=== PATIENT | male | born 1970 | race Caucasian/White ===

== ENCOUNTER 2016-07-11 15:23 | Emergency (ER) | payer OTHER ==
[2016-07-11 15:38] VITALS: BP 119/101
--- NOTE | 2016-07-11 16:12 | UC ---
Back Pain HPI - HPI Summary HPI Summary: WORSENING LOW BACK PAIN SINCE ABOUT AN HOUR AGO. 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 HAS CHRONIC BACK PAIN AND WAS ADVISED TO HAVE SURGERY IN THE PAST BUT WAS UNABLE TO GET IT DONE UNTIL HE QUIT SMOKING WHICH HE HAS NOT DONE. NO NUMBNESS OR SADDLE ANESTHESIA. - History of Current Complaint Chief Complaint: UCBackPain Stated Complaint: BACK PAIN Time Seen by Provider: 07/11/16 16:04 Hx Obtained From: Patient Onset/Duration: Sudden Onset, Lasting Hours, Still Present Timing: Constant Severity Initially: Moderate Severity Currently: Moderate Pain Intensity: 8 Pain Scale Used: 0-10 Numeric Back Pain: Is Discrete @ - LEFT LOW BACK Character: Dull, Throbbing Aggravating: Movement, Bending Alleviating: Rest Associated Signs And Symptoms: Positive: Tingling. Negative: Swelling, Redness , Bruising, Fever, Bladder Incontinence, Bowel Incontinence - Allergies/Home Medications Allergies/Adverse Reactions: Allergies Allergy/AdvReac Type Severity Reaction Status Date / Time No Known Allergies Allergy Verified 07/14/15 15:06 PMH/Surg Hx/FS Hx/Imm Hx Endocrine History Of: Denies: Diabetes, Thyroid Disease Cardiovascular History Of: Denies: Cardiac Disorders, Hypertension Respiratory History Of: Reports: COPD - Emphysema Denies: Asthma GI/ History Of: Denies: Ulcer Psychological History Of: Reports: Depression - Surgical History Surgical History: None - Family History Known Family History: Positive: Hypertension - Social History Alcohol Use: None Substance Use Type: Marijuana Substance Use Comment - Amount & Last Used: occasionally Smoking Status (MU): Heavy Every Day Tobacco Smoker Amount Used/How Often: 1 ppd Length of Time of Smoking/Using Tobacco: 35 years Have You Smoked in the Last Year: Yes Household Exposure Type: Cigarettes - Immunization History Most Recent Influenza Vaccination: 2014 Most Recent Tetanus Shot: UTD Review of Systems Constitutional: Negative Skin: Negative Respiratory: Negative Cardiovascular: Negative Gastrointestinal: Negative Musculoskeletal: Arthralgia, Myalgia All Other Systems Reviewed And Are Negative: Yes Physical Exam Triage Information Reviewed: Yes Appearance: Well-Appearing, No Pain Distress, Well-Nourished Vital Signs: Initial Vital Signs Temp 99.5 F 07/11/16 15:30 Pulse 100 07/11/16 15:30 Resp 16 07/11/16 15:30 BP 119/101 07/11/16 15:30 Pulse Ox 97 07/11/16 15:30 Vital Signs Reviewed: Yes Eyes: Positive: Conjunctiva Clear ENT: Positive: Hearing grossly normal Neck: Positive: Supple Respiratory: Positive: No respiratory distress, No accessory muscle use Cardiovascular: Positive: Pulses Normal Abdomen Description: Positive: Soft Musculoskeletal: Positive: ROM Intact, No Edema, Other: - TTP LEFT LOWER BACK PARASPINOUS MUSCLES. MUSCLES ARE TIGHT. Neurological: Positive: Alert Psychological: Positive: Age Appropriate Behavior Skin: Negative: rashes Back Pain Course/Dx - Differential Dx/Diagnosis Provider Diagnoses: ACUTE LOW BACK STRAIN Discharge - Discharge Plan Condition: Stable Disposition: HOME Prescriptions: Cyclobenzaprine TAB* [Flexeril TAB*] 10 mg PO TID #30 tab Hydrocodone-Acetaminophen [Lorcet 5-325 mg] 1 tab PO QID PRN #12 tab MDD 4 PRN Reason: Pain Naproxen [Naproxen EC] 500 mg PO BID PRN #30 tab PRN Reason: Pain Patient Education Materials: Low Back Strain (ED) Referrals: Hira Gonzalez MD [Medical Doctor] - 1 Week Claudio Arango MD [Primary Care Provider] - 4 Days Additional Instructions: BE SURE TO GO THROUGH SLOW RANGE OF MOTION AND STRETCHING EXERCISES DAILY YOU ARE ABLE TO PREVENT STIFFENING UP AND MAKING THE DISCOMFORT WORSE. SEEK FOLLOW-UP IF YOU ARE NOT IMPROVING. YOU MAY WANT TO RE-ESTABLISH WITH NEUROSURGERY TO DISCUSS TREATMENT OPTIONS. [facility] [address] [place] [id number] YOUR BP IS SLIGHTLY ELEVATED. THIS MAY BE DUE TO YOUR CURRENT DISCOMFORT. FOLLOW -UP WITH YOUR PCP FOR THIS.
== END 2016-07-11 16:40 | disposition home or self-care (01) ==
LOC: UCEAST 15:23
DX: S39.012A Strain of muscle, fascia and tendon of lower back, initial encounter (principal); X50.0XXA Overexertion from strenuous movement or load, initial encounter; Y93.89 Activity, other specified; Y92.9 Unspecified place or not applicable; J43.9 Emphysema, unspecified; F17.210 Nicotine dependence, cigarettes, uncomplicated
CPT/HCPCS: 99212; G0463

== ENCOUNTER 2016-12-30 13:52 | Inpatient (IN) | payer OTHER ==
[2016-12-30] MEDS ORDERED: NS 0.9% 1000 ML* 1,000 ML IV ONE ×2 (13:59→20:15)
[2016-12-30] MEDS ORDERED: LORazepam INJ* 2 MG/ML 1 ML VIAL ONE ×2 (13:59→14:11)
[2016-12-30] MEDS ORDERED: LORazepam INJ* 2 MG/ML 1 ML VIAL IV PUSH ONE ×2 (14:00→17:10)
[2016-12-30] MEDS ORDERED: Midazolam* 1 MG/ML 2 ML VIAL (2 MG) ONE (14:11)
[2016-12-30] MEDS ORDERED: Etomidate* 2 MG/ML 20 ML VIAL (40 MG) ONE (14:31)
[2016-12-30] MEDS ORDERED: Succinylcholine* 20 MG/ML 10 ML VIAL ONE (14:31)
[2016-12-30] MEDS ORDERED: Etomidate* 2 MG/ML 10 ML VIAL ONE (14:31)
--- NOTE | 2016-12-30 14:45 | RAD ---
Indication: Altered mental status. Possible drug overdose. Shaking and vomiting. Comparison: No relevant prior exams available on the [facility] PACS for comparison. Technique: Noncontrast CT vertex of skull through foramen magnum. Multiple data acquisitions due to significant motion artifact. Report: The sulci, ventricles, and basal cisterns are normal for age. Bowen matter white matter differentiation is preserved without evidence for edema. No intra or extra axial hemorrhage, mass, or fluid collection detected. Unremarkable visualized orbital contents. Unremarkable calvarium and skull base. Unremarkable scalp. Near complete opacification of the LEFT maxillary sinus and multiple gas bubbles. Gross complete opacification of the LEFT sphenoid sinus and partial opacification of the LEFT ethmoid sinus. Normal variant hypoplastic frontal sinuses. Clear mastoid air spaces. IMPRESSION: 1. No CT abnormality of the brain evident. 2. LEFT paranasal sinus disease suspicious for acute sinusitis.
--- NOTE | 2016-12-30 14:48 | RAD ---
Indication: Altered mental status. Emphysema. Shaking and vomiting. Comparison: March 02, 2011 CT. October 27, 2008 chest radiograph. Technique: Portable AP chest 1429 hours Report: Elevated lung volumes and both diffuse mild prominence of the interstitial markings and patchy rarefaction of the mid to upper lung zone interstitial markings. No focal pulmonary lesion, compelling alveolar consolidation, pleural effusion, pneumothorax. The heart, pulmonary vasculature, and mediastinal contours are unremarkable. IMPRESSION: Stigmata of obstructive lung disease. No acute pulmonary or cardiac process evident.
[2016-12-30] MEDS: Midazolam PREMIX BAG 1 MG/ML* 100 MG/100 ML BAG IV ONE ×2 (14:50→20:27)
[2016-12-30] MEDS ORDERED: Midazolam* 1 MG/ML 5 ML VIAL (5 MG) ONE (14:59)
--- NOTE | 2016-12-30 15:26 | RAD ---
Indication: Post intubation. Confirm ET tube placement. Comparison: December 30, 2016 1429 hours Technique: Supine AP 1500 hours Report: Tip of endotracheal tube 9.8 cm above the Meme and should be advanced approximate 4 cm. Elevated lung volumes and both diffuse mild prominence of the interstitial markings and patchy rarefaction of the mid to upper lung zone interstitial markings. The heart, pulmonary vasculature, and mediastinal contours are unremarkable. IMPRESSION: Endotracheal tube should be advanced approximate 4 cm.
--- NOTE | 2016-12-30 15:37 | PN ---
Progress Note - Progress Note Date of Service: 12/30/16 Note: Critical Care Admission Note (History & Physical) 46 yo male broght to ER after several episodes of vomitting that led to loss of consciousness. Patient brought to ER by EMS....was agitated in ER with left sided twitching suspicious for seizures. Patient was given a couple of doses of Ativan and Versed as well and was intubated to secure his airway. CT head was performed which was nonrevealing. is in ER...reports he was apparently doing some house cleaning earlier today. She relates that once in past, about 8 years ago he may have had something like this occur but nothing came of it. He has not had any recent head tauma. She denies any recent history of headaches. She relates they do use marijuana and says they have been buying from same source. She denies use of K2 or Spice. She says he does not drink alcohol. He does occassionally take her Oxycodone and Cyclobenzaprine in relation to low back pains. She denies any other drugs being available in the house. 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, , has 5 children, smokes E- cigarettes...formerly smoked tobacco Fam Hx...unable to obtain ROS unable to obtain but according to there are no other medical issues on a general survey of multisystem diseases SBP 97-101 HR 101 reg FiO2 50% TV 500 PEEP 5 SpO2 99 Skin no diaphoresis, no cyanosis Sclerae anicteric, pupils equal Oral ETT in place Oral mucosa pink Lungs with bilateral BS, no wheezes Cor RRR S1 and S2 normal, no murmur, no rub Abd flat, soft, nontender Ext no edema Bilateral upper extrem PIVs labs not yet available CXR hyper-expanded lungs, ETT high, no infiltrate, no PVC EKG SR IMP: Acute Respiratory Failure...intubated to secure airway Encephalopathy with agitation and apparent seizure activity Marijuana use Emphysema Low back pain PLAN: Full MV support for now Will request Neurology Consult Will initiate Keppra for now IV hydration Full admitting chemical analysis, CBC Tox Screen Keep HOB raised DVT Prophyl Pepcid Suctioning PRN Albuterol Neb Q4 hr PRN
[2016-12-30 15:42] LABS: Hematocrit 44 % (42-52); Hemoglobin 14.7 g/dl (14.0-18.0); Mean Corpuscular HGB Conc 34 g/dl (31-36); Mean Corpuscular Hemoglobin 31 pg (27-31); Mean Corpuscular Volume 93 fL (80-94); Mean Platelet Volume 8 um3 (7.4-10.4); Red Blood Count 4.72 10^6/ul (4.0-5.4); Red Cell Distribution Width 14 % (10.5-15); White Blood Count 8.1 10^3/ul (3.5-10.8)
[2016-12-30] MEDS: D5LR 1000 ML BAG* 1,000 ML IV SCH ×2 (15:44→22:50)
[2016-12-30 15:56] LABS: ALT 15 U/L (7-52); AST 13 U/L (13-39); Albumin 3.8 g/dL (3.2-5.2); Alkaline Phosphatase 59 U/L (34-104); Anion Gap 10 mmol/L (2-11); BUN/Creatinine Ratio 10.3 (8-20); Blood Urea Nitrogen 10 mg/dL (6-24); CO2 Carbon Dioxide 23 mmol/L (22-32); Calcium 8.8 mg/dL (8.6-10.3); Chloride 104 mmol/L (101-111); Creatine Kinase 52 U/L (10-223); EGFR African American 106.2 (>60); EGFR Non-African American 82.6 (>60); Glucose 153 mg/dL (70-100); Magnesium 1.7 mg/dL (1.9-2.7); Potassium 3.6 mmol/L (3.5-5.0); Sodium 137 mmol/L (133-145); Total Protein 6.8 g/dL (6.4-8.9); Urine Bilirubin Negative (Negative); Urine Glucose Negative (Negative); Urine Nitrite Negative (Negative)
[2016-12-30 15:59] LABS: Alcohol < 10 mg/dL (<10); Salicylate < 2.50 mg/dL (<30)
[2016-12-30 16:00] LABS: Benzodiazepine Urine Screen Presumptive Positive (None Detect)
[2016-12-30 16:09] LABS: TSH (Thyroid Stimulating Horm) 3.83 mcIU/mL (0.34-5.60)
[2016-12-30] MEDS: Chlorhexidine MOUTHWASH 0.12%* 15 ML UDC TOPICAL SCH ×3 (16:10→22:54)
[2016-12-30] MEDS ORDERED: Propofol* 100 ML ONE (16:14)
[2016-12-30 16:18] LABS: Acetaminophen 371 mcg/mL
[2016-12-30] MEDS ORDERED: Midazolam* 1 MG/ML 2 ML VIAL (2 MG) IV ONE (16:41)
[2016-12-30] MEDS ORDERED: Succinylcholine* 20 MG/ML 10 ML VIAL IV ONE (16:42)
[2016-12-30] MEDS ORDERED: Etomidate* 2 MG/ML 10 ML VIAL IV ONE (16:42)
[2016-12-30 16:46] LABS: Phosphorus 2.2 mg/dL (2.5-5.0)
[2016-12-30] MEDS ORDERED: ACETYLCYSTEINE IVPB ONE ×4 (17:00→21:15)
[2016-12-30] MEDS ORDERED: D5W IVPB ONE ×4 (17:00→21:15)
[2016-12-30] MEDS ORDERED: Potassium Phosphate IV* 15 MMOLE in NS 0.9% 250 ML* 250 ML IVPB ONE (17:04)
[2016-12-30] MEDS ORDERED: Midazolam* 1 MG/ML 5 ML VIAL (5 MG) IV ONE (17:09)
[2016-12-30 17:19] LABS: FIO2 30; Resp Rate 12; Ventilator Volume 500
[2016-12-30 17:22] LABS: PCO2 Arterial 42 mmHg (35-45)
[2016-12-30] MEDS: Enoxaparin(*) 40 MG/0.4 ML SYR SUBCUT SCH (17:34)
--- NOTE | 2016-12-30 17:34 | RAD ---
Indication: Chest endotracheal tube and orogastric tube positions. Comparison: 1429 hours exam of the same date. Technique: Supine AP 1655 hours Report: Endotracheal tube tip 8.5 cm above the Meme. Nasogastric tube passes below the diaphragm to at least the body of the stomach with the tip outside the [id number] caudally. Stigmata of advanced chronic obstructive pulmonary disease and emphysema with suggestion of potential inflammatory infiltrate at the RIGHT lung base not appreciated on the previous exam. Negative for cardiomegaly. Unremarkable central pulmonary vasculature and mediastinal contours. IMPRESSION: 1. The endotracheal tube could be advanced approximate 3 cm. 2. Potential inflammatory infiltrate at the RIGHT lung base.
[2016-12-30] MEDS: Rocuronium* 10 MG/ML VIAL IV ONE ×2 (17:50→18:57)
[2016-12-30] MEDS ORDERED: Midazolam IV for DRIP 100 MG in NS 0.9% IV SCH (18:00)
[2016-12-30] MEDS ORDERED: Propofol* 500 MG/50 ML BTL IV SCH (18:00)
--- NOTE | 2016-12-30 19:11 | RAD ---
INDICATION: ICU patient. Fall. Potential neck trauma. COMPARISON: February 21, 2012 radiographs. TECHNIQUE: Multidetector CT images foramen magnum to lung apices without contrast. Multiplanar reformation. REPORT: Endotracheal and nasogastric tubes noted. Limited images through the lung apices are remarkable for advanced emphysema with subpleural blebs and bulla. No apical pneumothorax evident. Normal vertebral alignment accounting for exam positioning without spondylolisthesis or subluxation at any level. Negative for cervical vertebral body or posterior element fracture. Negative for paravertebral hematoma. Multilevel degenerative spondylosis. At C4-C5 there is a mild disc space narrowing and dorsal disc osteophyte complex without significant resulting central canal stenosis. Uncinate process spurring and facet joint osteoarthritis results in moderate RIGHT foraminal stenosis. IMPRESSION: Negative for cervical spine fracture or traumatic malalignment.
[2016-12-30] MEDS: Propofol* 1000 MG (10 MG/ML 100 ml) @ Per Protocol (in ICU Pyxis) IV SCH (19:36)
--- NOTE | 2016-12-30 21:58 | CONS ---
CONSULTATION REPORT: DATE OF CONSULT: 12/30/16 HISTORY OF PRESENT ILLNESS: Hira Holloway is a 46-year-old gentleman who follows with Dr. Arango for low back and neck pain and COPD, who is admitted now with a change in mental status. Mr. Holloway was last seen normal by his last night. When she woke up this morning around 12:31 per history, he was "out of it." She described him lying on the bed with his mouth open. She had gotten out of bed, went back to bed and it was soon after that he had fallen and was vomiting. She had questioned whether he may have done some cleaning that morning. There is a history of marijuana use, but she is unclear if he had taken marijuana that day. She indicates that they had used some of the marijuana before without difficulty. She does not know of any other drug use other than sometimes he will take her benzodiazepines and oxycodone at times. His tox screen was positive with acetaminophen 371 and presumed positive benzodiazepine and cannabinoids. Dr. Strickland in the emergency room indicated that he was agitated and confused. There was no improvement with Narcan. He became almost obtunded and then after that was reported again to be agitated per description. He was taken to the CT and upon returning from the CT scan, had 5 to 10 seconds of twitching on the left hand side. He received a total of 6 mg of Ativan and 9 mg of Versed prior to getting a Versed drip. He was brought up to the ICU and the ICU attending asked me to see him. PAST MEDICAL HISTORY: As gleaned from at bedside and from outpatient chart includes low back pain, neck pain, COPD, brachial neuritis, hyponatremia, hyperlipidemia, GI reflux, depression, insomnia, and sleep apnea. He was last seen in October and received amoxicillin-clavulanic acid for an upper respiratory tract infection. MEDICATIONS: His outpatient medications from the outpatient chart include: 1. Calcium and vitamin D 600/400 international units p.o. b.i.d. 2. Dulera 200/5 two b.i.d. 3. Ventolin 2 puffs q.i.d. 4. Hydrocodone/APAP 5/325 q.12 hours. 5. Benzodiazepine 10 mg p.o. q.h.s. 6. Ibuprofen 600 mg p.o. t.i.d. 7. Multivitamin and fluconazole 50 mcg 2 puffs a day. His recalls him taking cyclobenzaprine, ibuprofen, and multivitamin. ALLERGIES: He has no known drug allergies. SOCIAL HISTORY: He does smoke about 20 cigarettes a day. Does not drink alcohol. He does smoke marijuana. REVIEW OF SYSTEMS: His indicates that recently he has lost a lot of weight , other than that, she indicates he has been healthy. There has been no other new problems. I reviewed what information I had on his past medical history and she indicated that was the best to her knowledge. The patient could not participate further in review of systems. PHYSICAL EXAM: In the ICU, most recent vitals include a heart rate of 110, respiratory rate 30, saturation 98%, blood pressure 151/98, and his temperature was 97.5 degrees Fahrenheit. He had a regular cardiac rhythm. His lungs were clear to auscultation. He was tachycardic. He had positive bowel sounds. His abdomen was soft, nontender. At first when I walked in the room before propofol was started, he was moving his arms in a somewhat random, purposeful- type manner, reaching out, although quickly his exam changed and he had what could be described as decorticate posturing with flexing of his arms when he was stimulated and extension of his legs. His pupils were 3 mm with response to light. His fundi was flat on the right with good vasculature, harder to observe on the left. He did not follow commands. He blinked to treat. His facial expression was symmetric. His tone was increased. He had decorticate posturing as noted above. He had clonus at his ankles 7 to 9 beats. He could not participate further in motor, coordination, or gait exam or sensory exam. His reflexes were 1+ in the upper extremities. Hard to obtain any in the lower extremities as he was tonic with the clonus at the ankles and his toes were equivocal. DIAGNOSTIC STUDIES/LAB DATA: Includes CT of the brain which was reviewed directly which did not show any clear cause for his decline. There was evidence to suggest some left paranasal sinus disease. Please see report for details. His chest x-ray was read as showing obstructive lung disease stigmata. His complete metabolic panel did show an elevated glucose at 153. His lactate was elevated at 3.2, magnesium was low at 1.7. TSH was 3.83. His urinalysis showed trace ketones and there was positive urine ascorbic acid. His tox screen showed 371 acetaminophen, presumed positive benzodiazepines, and presumed positive cannabinoids. Serum alcohol was less than 10, salicylates less than 2.5, and urine opiate screen was negative. IMPRESSION: Hira Holloway is a 46-year-old gentleman with a history of low back pain and neck pain, brought in with agitation, confusion, and vomiting. He was last seen normal by his last night. There is variable history in obtaining what happened. There appeared to be history of trauma with a fall. His CT was negative. Of concern is exam with decorticate posturing and I spoke with the ICU attending. He was placed in a collar and will be having a CT of the cervical spine. He required extensive sedation to avoid self-harm and is now intubated. His exam is limited. I have asked for an roofing technician to come in to make sure there is no evidence of status. Based on his initial exam, this is less likely but at this point, it is minimal exam and just posturing and therefore it is on the differential diagnosis. The clinical picture is most consistent with the gesturing of substance or polysubstance. No fevers detected today. There is no elevated white count. He does have an elevated lactate and ICU attending is taking care and we will further evaluate this finding along with repletion of magnesium. The posturing does suggest central nervous system injury. In the future, he will need further central nervous system imaging per clinical course. TIME SPENT: Over an hour thus far has been spent in patient care and further time will be spent in review of EEG tonight as well as CT of the cervical spine. [id number]/[facility] #: [id number] [facility]
[2016-12-30] MEDS: Famotidine IV* 10 MG/ML 2 ML (20 mg) IV SCH (22:56)
[2016-12-31] MEDS ORDERED: ACETYLCYSTEINE IVPB ONE ×2 (01:45→06:00)
[2016-12-31] MEDS ORDERED: D5W IVPB ONE ×2 (01:45→06:00)
[2016-12-31] MEDS: Propofol* 1000 MG (10 MG/ML 100 ml) @ Per Protocol (in ICU Pyxis) IV SCH ×2 (01:56→17:06)
--- NOTE | 2016-12-31 03:55 | EEG ---
ELECTROENCEPHALOGRAPHY: DATE OF STUDY: 12/30/2016. CLINICAL PROBLEM: Mr. Holloway is a 46-year-old gentleman with a history of chronic neck and back pain and COPD, who had a change in mental status of unclear onset. He was last seen normal by his last night. This morning to afternoon around noon-shelton time, she noticed he was out of it on the bed. Later he became agitated, confused, fell, and was vomiting and he was noted to be confused and combative in the hospital, requiring a significant amount of sedation with Ativan and Versed and eventually Versed drip and propofol. Initially, during the recording, the patient was on both Versed and propofol and partway through the recording, the propofol was held. REPORT: This was a 16-channel EEG performed at the bedside. In the beginning of the record, the background activity was low voltage and fast. Soon after the record began, there was burst of higher amplitude more sharply contoured waves that were slower, anterior more than posterior. Intermittently alpha activity was noted at 13 Hz in bursts. As the record continued, there was no significant asymmetry of the background rhythm. There was no evidence of ongoing seizure activity. As the record continued, the burst of activity became more frequent in the setting of propofol being held, there was evidence of frequent bursts of generalized activity that was higher amplitude, more sharply contoured particularly in the frontal leads. CLINICAL IMPRESSION: This is an abnormal EEG. Findings are consistent with burst suppression. There was no evidence of ongoing epileptiform activity. [id number]/[facility] #: [id number] [facility]
[2016-12-31] MEDS: Chlorhexidine MOUTHWASH 0.12%* 15 ML UDC TOPICAL SCH ×5 (04:18→20:53)
[2016-12-31] MEDS: D5LR 1000 ML BAG* 1,000 ML IV SCH ×3 (05:10→21:37)
[2016-12-31 05:17] LABS: Hematocrit 39 % (42-52); Hemoglobin 12.9 g/dl (14.0-18.0); Mean Corpuscular HGB Conc 34 g/dl (31-36); Mean Corpuscular Hemoglobin 31 pg (27-31); Mean Corpuscular Volume 93 fL (80-94); Mean Platelet Volume 8 um3 (7.4-10.4); Red Blood Count 4.14 10^6/ul (4.0-5.4); Red Cell Distribution Width 14 % (10.5-15); White Blood Count 7.6 10^3/ul (3.5-10.8)
[2016-12-31 05:27] LABS: Albumin 2.8 g/dL (3.2-5.2); BUN/Creatinine Ratio 9.5 (8-20); Calcium 7.8 mg/dL (8.6-10.3); EGFR African American 145.2 (>60); EGFR Non-African American 112.9 (>60); Magnesium 2.2 mg/dL (1.9-2.7); Phosphorus 3.1 mg/dL (2.5-5.0); Potassium 3.2 mmol/L (3.5-5.0); Total Bilirubin 1.5 mg/dL (0.2-1.0); Total Protein 4.8 g/dL (6.4-8.9)
--- NOTE | 2016-12-31 09:07 | RAD ---
Indication: Respiratory failure. Single frontal view of the chest performed at 0630 hours was reviewed. Comparison is made with previous exam dated December 30, 2016. No mediastinal shift is noted. Heart is of normal size and configuration. Lung gonzalez appear clear. Endotracheal tube is at the level of the aortic arch IMPRESSION: HYPERINFLATED LUNG GONZALEZ. ENDOTRACHEAL TUBE AT THE AORTIC ARCH.
[2016-12-31] MEDS: KCL 10 MEQ/50 ML IVPREMIX* 10 MEQ/50 ML BAG IV SCH ×6 (09:32→23:58)
[2016-12-31] MEDS: Famotidine IV* 10 MG/ML 2 ML (20 mg) IV SCH ×2 (09:32→20:53)
[2016-12-31] MEDS ORDERED: hydrALAZINE IV* 20 MG/ML VIAL IV SLOW PU PRN (11:35)
[2016-12-31] MEDS: Enoxaparin(*) 40 MG/0.4 ML SYR SUBCUT SCH (17:05)
--- NOTE | 2016-12-31 17:28 | ED ---
Tiesha Davis Edward, scribed for Hector Strickland MD on 12/30/16 at 1404 . Complex/Multi-Sys Presentation - HPI Summary HPI Summary: 46 y/o male BIBA s/p episode of sudden onset, intermittent vomiting 5 times at home around 45 minutes to an hour [employer]. Pt was found fallen faced down on the floor. Per patients , the patient was diaphoretic and shaking during the episode. He also fell to the floor and hit his head. Pt uses marijuana and cigarettes. Pt arrives to the ED agitated and uncooperative. - History Of Current Complaint Hx Obtained From: Family/[employer] - , EMS Onset/Duration: Sudden Onset Timing: Intermittent, Lasting: Associated Signs And Symptoms: Positive: Nausea, Vomiting, Diaphoresis, Other - Shaking - Allergies/Home Medications Allergies/Adverse Reactions: Allergies Allergy/AdvReac Type Severity Reaction Status Date / Time No Known Allergies Allergy Verified 08/07/16 09:29 PMH/Surg Hx/FS Hx/Imm Hx Previously Healthy: No Endocrine/Hematology History: Denies: Hx Diabetes, Hx Thyroid Disease Cardiovascular History: Denies: Hx Hypertension, Hx Pacemaker/ICD Respiratory History: Reports: Hx Chronic Obstructive Pulmonary Disease (COPD) - Emphysema Denies: Hx Asthma GI History: Denies: Hx Ulcer Musculoskeletal History: Denies: Hx Scoliosis Neurological History: Reports: Other Neuro Impairments/Disorders - LBP RADIATING DOWN L LEG Denies: Hx Headaches Psychiatric History: Reports: Hx Depression Denies: Hx Panic Disorder Infectious Disease History: Denies: Hx Clostridium Difficile, Hx Hepatitis, Hx Human Immunodeficiency Virus (HIV), Hx of Known/Suspected MRSA, Hx Shingles, Hx Tuberculosis, Hx Known/ Suspected VRE, Hx Known/Suspected VRSA, History Other Infectious Disease, Traveled Outside the [place] in Last 30 Days - Family History Known Family History: Positive: Hypertension - Social History Alcohol Use: None Hx Substance Use: Yes Substance Use Type: Reports: Marijuana Substance Use Comment - Amount & Last Used: occasionally Hx Tobacco Use: Yes Smoking Status (MU): Heavy Every Day Tobacco Smoker Amount Used/How Often: 1 ppd Length of Time of Smoking/Using Tobacco: 35 years Have You Smoked in the Last Year: Yes Review of Systems Constitutional: Negative Eyes: Negative ENT: Negative Cardiovascular: Negative Respiratory: Negative Positive: Vomiting, Nausea Genitourinary: Negative Musculoskeletal: Negative Skin: Negative Neurological: Other - Fell and hit his head, shaking, convulsions Psychological: Normal All Other Systems Reviewed And Are Negative: Yes Physical Exam - Summary Physical Exam Summary: VITAL SIGNS: Reviewed. GENERAL: ~Patient is agitated and uncooperative. ~Patient is not in any acute respiratory distress. HEAD AND FACE: No signs of trauma. ~No ecchymosis, hematomas or skull depressions. No sinus tenderness. EYES: PERRLA, EOMI x 2, No injected conjunctiva, no nystagmus. EARS: Hearing grossly intact. Ear canals and tympanic membranes are within normal limits. MOUTH: Dry mucosa with lots of phlegm. NECK: Supple, trachea is midline, no adenopathy, no JVD, no carotid bruit, no c- spine tenderness, neck with full ROM. CHEST: Symmetric, no tenderness at palpation LUNGS: Clear to auscultation bilaterally. No wheezing or crackles. CVS: Regular rate and rhythm, S1 and S2 present, no murmurs or gallops appreciated. ABDOMEN: Soft and flat. Positive bowel sounds. EXTREMITIES: FROM in all major joints, no edema, no cyanosis or clubbing. NEURO: Alert not oriented. No acute neurological deficits. Does not follow commands. SKIN: Dry and warm Triage Information Reviewed: Yes Vital Signs On Initial Exam: Initial Vitals Temp Pulse Resp BP Pulse Ox 96.9 F 98 12 103/77 98 12/30/16 13:59 12/30/16 13:59 12/30/16 13:59 12/30/16 13:59 12/30/16 13:59 Vital Signs Reviewed: Yes Procedures - Intubation Time of Intubation: 14:35 Intubation Method: orotracheal Tube Size (cm): 7.5 Medications: Succinylcholine - Ethomidate Breath Sounds after Intubation: equal Intubation Complications: no complications Post Intubation Xray: Yes Diagnostics - Vital Signs Vital Signs Temp Pulse Resp BP Pulse Ox 12/30/16 15:05 106 22 97/74 99 12/30/16 15:00 106 22 113/81 99 12/30/16 14:55 115 27 98/79 98 12/30/16 14:50 115 23 102/88 100 12/30/16 14:45 104 18 127/101 100 12/30/16 14:40 97 12 117/83 100 12/30/16 14:35 100 21 126/100 98 12/30/16 14:30 99 23 119/77 88 12/30/16 14:25 101 23 113/85 90 12/30/16 14:15 106 27 96 12/30/16 14:10 102 27 96 12/30/16 14:05 104 27 92 12/30/16 14:00 100 27 97 12/30/16 13:59 96.9 F 98 12 103/77 98 - Laboratory Lab Results: Lab Results 12/30/16 12/30/16 12/30/16 Range/Units 15:07 15:07 15:07 WBC 8.1 (3.5-10.8) 10^3/ul RBC 4.72 (4.0-5.4) 10^6/ul Hgb 14.7 (14.0-18.0) g/dl Hct 44 (42-52) % MCV 93 (80-94) fL MCH 31 (27-31) pg MCHC 34 (31-36) g/dl RDW 14 (10.5-15) % Plt Count 248 (150-450) 10^3/ul MPV 8 (7.4-10.4) um3 Neut % (Auto) 73.8 (38-83) % Lymph % (Auto) 19.8 L (25-47) % Desha % (Auto) 5.7 (1-9) % Eos % (Auto) 0.1 (0-6) % Baso % (Auto) 0.6 (0-2) % Absolute Neuts (auto) 6.0 (1.5-7.7) 10^3/ul Absolute Lymphs (auto) 1.6 (1.0-4.8) 10^3/ul Absolute Monos (auto) 0.5 (0-0.8) 10^3/ul Absolute Eos (auto) 0 (0-0.6) 10^3/ul Absolute Basos (auto) 0 (0-0.2) 10^3/ul Absolute Nucleated RBC 0 10^3/ul Nucleated RBC % 0 Sodium 137 (133-145) mmol/L Potassium 3.6 (3.5-5.0) mmol/L Chloride 104 (101-111) mmol/L Carbon Dioxide 23 (22-32) mmol/L Anion Gap 10 (2-11) mmol/L BUN 10 (6-24) mg/dL Creatinine 0.97 (0.67-1.17) mg/dL Est GFR ( Amer) 106.2 (>60) Est GFR (Non-Af Amer) 82.6 (>60) BUN/Creatinine Ratio 10.3 (8-20) Glucose 153 H (70-100) mg/dL Lactic Acid (0.5-2.0) mmol/L Calcium 8.8 (8.6-10.3) mg/dL Phosphorus 2.2 L (2.5-5.0) mg/dL Magnesium 1.7 L (1.9-2.7) mg/dL Total Bilirubin 0.90 (0.2-1.0) mg/dL AST 13 (13-39) U/L ALT 15 (7-52) U/L Alkaline Phosphatase 59 (34-104) U/L Ammonia 32 (16-53) mol/L Total Creatine Kinase 52 (10-223) U/L Troponin I 0.00 (<0.04) ng/mL Total Protein 6.8 (6.4-8.9) g/dL Albumin 3.8 (3.2-5.2) g/dL Globulin 3.0 (2-4) g/dL Albumin/Globulin Ratio 1.3 (1-3) TSH 3.83 (0.34-5.60) mcIU/mL Urine Color Urine Appearance Urine pH (5-9) Ur Specific [place] (1.010-1.030) Urine Protein (Negative) Urine Ketones (Negative) Urine Blood (Negative) Urine Nitrate (Negative) Urine Bilirubin (Negative) Urine Urobilinogen (Negative) Ur Leukocyte Esterase (Negative) Urine Glucose (Negative) Urine Ascorbic Acid (Negative) Salicylates < 2.50 (<30) mg/dL Urine Opiates Screen (None Detect) Acetaminophen 371 H* mcg/mL Ur Barbiturates Screen (None Detect) Ur Phencyclidine Scrn (None Detect) Ur Amphetamines Screen (None Detect) U Benzodiazepines Scrn (None Detect) Urine Cocaine Screen (None Detect) U Cannabinoids Screen (None Detect) Serum Alcohol < 10 (<10) mg/dL 12/30/16 12/30/16 12/30/16 Range/Units 15:07 15:07 15:07 WBC (3.5-10.8) 10^3/ul RBC (4.0-5.4) 10^6/ul Hgb (14.0-18.0) g/dl Hct (42-52) % MCV (80-94) fL MCH (27-31) pg MCHC (31-36) g/dl RDW (10.5-15) % Plt Count (150-450) 10^3/ul MPV (7.4-10.4) um3 Neut % (Auto) (38-83) % Lymph % (Auto) (25-47) % Desha % (Auto) (1-9) % Eos % (Auto) (0-6) % Baso % (Auto) (0-2) % Absolute Neuts (auto) (1.5-7.7) 10^3/ul Absolute Lymphs (auto) (1.0-4.8) 10^3/ul Absolute Monos (auto) (0-0.8) 10^3/ul Absolute Eos (auto) (0-0.6) 10^3/ul Absolute Basos (auto) (0-0.2) 10^3/ul Absolute Nucleated RBC 10^3/ul Nucleated RBC % Sodium (133-145) mmol/L Potassium (3.5-5.0) mmol/L Chloride (101-111) mmol/L Carbon Dioxide (22-32) mmol/L Anion Gap (2-11) mmol/L BUN (6-24) mg/dL Creatinine (0.67-1.17) mg/dL Est GFR ( Amer) (>60) Est GFR (Non-Af Amer) (>60) BUN/Creatinine Ratio (8-20) Glucose (70-100) mg/dL Lactic Acid 3.2 H* (0.5-2.0) mmol/L Calcium (8.6-10.3) mg/dL Phosphorus (2.5-5.0) mg/dL Magnesium (1.9-2.7) mg/dL Total Bilirubin (0.2-1.0) mg/dL AST (13-39) U/L ALT (7-52) U/L Alkaline Phosphatase (34-104) U/L Ammonia (16-53) mol/L Total Creatine Kinase (10-223) U/L Troponin I (<0.04) ng/mL Total Protein (6.4-8.9) g/dL Albumin (3.2-5.2) g/dL Globulin (2-4) g/dL Albumin/Globulin Ratio (1-3) TSH (0.34-5.60) mcIU/mL Urine Color Yellow Urine Appearance Clear Urine pH 6.0 (5-9) Ur Specific [place] 1.028 (1.010-1.030) Urine Protein Negative (Negative) Urine Ketones Trace H (Negative) Urine Blood Negative (Negative) Urine Nitrate Negative (Negative) Urine Bilirubin Negative (Negative) Urine Urobilinogen Negative (Negative) Ur Leukocyte Esterase Negative (Negative) Urine Glucose Negative (Negative) Urine Ascorbic Acid * H (Negative) Salicylates (<30) mg/dL Urine Opiates Screen None detected (None Detect) Acetaminophen mcg/mL Ur Barbiturates Screen None detected (None Detect) Ur Phencyclidine Scrn None detected (None Detect) Ur Amphetamines Screen None detected (None Detect) U Benzodiazepines Scrn Presumptive positive H (None Detect) Urine Cocaine Screen None detected (None Detect) U Cannabinoids Screen Presumptive positive H (None Detect) Serum Alcohol (<10) mg/dL Result Diagrams: 12/31/16 04:56 12/31/16 04:56 Lab Statement: Any lab studies that have been ordered have been reviewed, and results considered in the medical decision making process. - Radiology CXR Xray Interpretation: No Acute Changes - Stigmata of obstructive lung disease. No acute pulmonary or cardiac process evident. Radiology Interpretation Completed By: Radiologist - CT BRAIN CT CT Interpretation: No Acute Changes - 1. No CT abnormality of the brain evident. 2. LEFT paranasal sinus disease suspicious for acute sinusitis. 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 Pt was found fallen faced down on the floor. Per patients , the patient was diaphoretic and shaking during the episode. He also fell to the floor and hit his head. Pt uses marijuana and cigarettes. Pt arrives to the ED agitated and uncooperative. BRAIN CT SHOWS 1. No CT abnormality of the brain evident. 2. LEFT paranasal sinus disease suspicious for acute sinusitis. CXR SHOWS Stigmata of obstructive lung disease. No acute pulmonary or cardiac process evident. Initially the pt is agitated, combative, therefore the pt was given 2 mg Ativan and Versed. Immediately pt was sent to CT to r/o intracranial pathology. We also ordered bloodwork and CXR. By the time the pt returned to the ED the pt was unresponsive. He had this episode of shaking in the L side of his body which lasted for about 7-10 seconds and resolved. At the point the pt was still unresponsive and began foaming in his mouth. At this time I decided to intubate the pt to protect the airways. See procedure note. Test results glucose 153 and lactic acid 3.2. UA (-) UTI. Urine toxicology pending. I discussed with Dr. Rader - the channel man who accepted the pt for admission. The pt was transferred to ICU before urine toxicology, EKG and the post-intubation CXR report. Pt is hemodynamically stable but critical. - Diagnoses Differential Diagnoses/HQI/PQRI: Cardiac Ischemia, Closed Cranial Trauma, CVA, Metabolic Abnormality, Sepsis, Urinary Tract Infection, Other - Overdose, seizure Provider Diagnoses: Altered mental status - Physician Notifications Discussed Care Of Patient With: Reji Rader Time Discussed With Above Provider: 14:46 Instructed by Provider To: Admit As Inpatient - Critical Care Time Critical Care Time: 30-74 min Discharge - Discharge Plan Condition: Stable Disposition: ADMITTED TO [facility] documentation as recorded by the Tiesha paris Edward accurately reflects the service I personally performed and the decisions made by me, Hector Strickland MD.
[2016-12-31 17:37] LABS: Albumin 3.2 g/dL (3.2-5.2); BUN/Creatinine Ratio 6.5 (8-20); Calcium 8.8 mg/dL (8.6-10.3); Direct Bilirubin 0.6 mg/dL (0.03-0.18); EGFR African American 111.5 (>60); EGFR Non-African American 86.7 (>60); Globulin 2.4 g/dL (2-4); Potassium 3.4 mmol/L (3.5-5.0); Total Bilirubin 3.6 mg/dL (0.2-1.0); Total Protein 5.6 g/dL (6.4-8.9)
[2016-12-31] MEDS ORDERED: D5W IVPB SCH (22:00)
[2016-12-31] MEDS ORDERED: ACETYLCYSTEINE IVPB SCH (22:00)
[2017-01-01] MEDS: Chlorhexidine MOUTHWASH 0.12%* 15 ML UDC TOPICAL SCH ×6 (00:03→20:42)
[2017-01-01] MEDS ORDERED: ACETYLCYSTEINE IVPB PRN (00:09)
[2017-01-01] MEDS ORDERED: D5W IVPB PRN (00:09)
[2017-01-01] MEDS: D5W IVPB SCH ×4 (00:29→14:55)
[2017-01-01] MEDS: ACETYLCYSTEINE IVPB SCH ×4 (00:29→14:55)
[2017-01-01] MEDS: Propofol* 1000 MG (10 MG/ML 100 ml) @ Per Protocol (in ICU Pyxis) IV SCH ×4 (01:44→23:16)
[2017-01-01 03:54] LABS: ALT 296 U/L (7-52); AST 156 U/L (13-39)
[2017-01-01 03:55] LABS: Acetaminophen 36 mcg/mL
[2017-01-01 07:09] LABS: Hematocrit 41 % (42-52); Hemoglobin 13.9 g/dl (14.0-18.0); Mean Corpuscular HGB Conc 34 g/dl (31-36); Mean Corpuscular Hemoglobin 31 pg (27-31); Mean Corpuscular Volume 93 fL (80-94); Mean Platelet Volume 8 um3 (7.4-10.4); Red Blood Count 4.43 10^6/ul (4.0-5.4); Red Cell Distribution Width 14 % (10.5-15); White Blood Count 6.1 10^3/ul (3.5-10.8)
[2017-01-01 07:37] LABS: Albumin 2.7 g/dL (3.2-5.2); BUN/Creatinine Ratio 5.6 (8-20); Calcium 8.1 mg/dL (8.6-10.3); EGFR African American 117.3 (>60); EGFR Non-African American 91.2 (>60); Magnesium 1.8 mg/dL (1.9-2.7); Phosphorus 2.4 mg/dL (2.5-5.0); Potassium 3.5 mmol/L (3.5-5.0); Total Bilirubin 2.3 mg/dL (0.2-1.0); Total Protein 4.7 g/dL (6.4-8.9)
[2017-01-01] MEDS: Famotidine IV* 10 MG/ML 2 ML (20 mg) IV SCH ×2 (08:04→20:42)
[2017-01-01] MEDS: D5LR 1000 ML BAG* 1,000 ML IV SCH ×2 (08:05→21:49)
--- NOTE | 2017-01-01 14:15 | PN ---
Critical Care Services: Still on propofol, but now becomes more alert when propofol held. Serum acetaminophen level remains elevated. Has also developed foul-smelling tracheal aspirate. Vital Signs: Temp Pulse Resp BP SpO2 FiO2 99.9 F 93 24 156/94 100 30 Physical Exam: Gen: On propofol HEENT: Pupils midposition and reactive Lungs: rgonchi bilaterally Abdomen:not distended Extremities:No cyanosis or edema Neuro: Moves all extremities. No apparent focal neuro deficit. Fluid Balance (Past 24 Hours): 01/01/17 06:59 Intake Total 5346 Output Total 3150 Balance +2196 Weight 164 lb Intake: IV Fluids 3711 KCL in Sterile Water 165 LR 1299 NS (0.9%) 86 d5 lr 2161 ns bolus IVPB 166 NS (0.9%) 166 Medicated IV 1423 acetylcysteine 1262 propofol 161 versed IV Narcotic Infusion 46 Versed 46 Output: Urine 450 Dawson 2700 Labs: Laboratory Results - last 24 hr 12/31/16 12/31/16 12/31/16 16:50 16:50 16:50 WBC RBC Hgb Hct MCV MCH MCHC RDW Plt Count MPV Neut % (Auto) Lymph % (Auto) [place] % (Auto) Eos % (Auto) Baso % (Auto) Absolute Neuts (auto) Absolute Lymphs (auto) Absolute Monos (auto) Absolute Eos (auto) Absolute Basos (auto) Absolute Nucleated RBC Nucleated RBC % INR (Anticoag Therapy) 1.58 H Sodium 139 Potassium 3.4 L Chloride 108 Carbon Dioxide 25 Anion Gap 6 BUN 6 Creatinine 0.93 Est GFR ( Amer) 111.5 Est GFR (Non-Af Amer) 86.7 BUN/Creatinine Ratio 6.5 L Glucose 133 H Lactic Acid Calcium 8.8 Phosphorus Magnesium Total Bilirubin 3.60 H D Direct Bilirubin 0.60 H Indirect Bilirubin 3.0 H AST 129 H ALT 218 H Alkaline Phosphatase 58 Ammonia 36 Total Protein 5.6 L Albumin 3.2 Globulin 2.4 Albumin/Globulin Ratio 1.3 Acetaminophen 12/31/16 12/31/16 01/01/17 16:50 17:15 03:27 WBC RBC Hgb Hct MCV MCH MCHC RDW Plt Count MPV Neut % (Auto) Lymph % (Auto) [place] % (Auto) Eos % (Auto) Baso % (Auto) Absolute Neuts (auto) Absolute Lymphs (auto) Absolute Monos (auto) Absolute Eos (auto) Absolute Basos (auto) Absolute Nucleated RBC Nucleated RBC % INR (Anticoag Therapy) Sodium Potassium Chloride Carbon Dioxide Anion Gap BUN Creatinine Est GFR ( Amer) Est GFR (Non-Af Amer) BUN/Creatinine Ratio Glucose Lactic Acid 1.8 Calcium Phosphorus Magnesium Total Bilirubin Direct Bilirubin Indirect Bilirubin AST 156 H ALT 296 H Alkaline Phosphatase Ammonia Total Protein Albumin Globulin Albumin/Globulin Ratio Acetaminophen 102 H* 36 01/01/17 01/01/17 01/01/17 03:27 07:01 07:01 INR (Anticoag Therapy) 2.10 H Sodium 141 Potassium 3.5 Chloride 112 H Carbon Dioxide 27 Anion Gap 2 BUN 5 L Creatinine 0.89 Est GFR ( Amer) 117.3 Est GFR (Non-Af Amer) 91.2 BUN/Creatinine Ratio 5.6 L Glucose 111 H Lactic Acid Calcium 8.1 L Phosphorus 2.4 L Magnesium 1.8 L Total Bilirubin 2.30 H Direct Bilirubin Indirect Bilirubin AST 214 H ALT 388 H Alkaline Phosphatase 56 Ammonia 32 Total Protein 4.7 L Albumin 2.7 Globulin 2.0 Albumin/Globulin Ratio 1.4 Acetaminophen 29 01/01/17 01/01/17 07:01 07:01 WBC 6.1 RBC 4.43 Hgb 13.9 L Hct 41 L MCV 93 MCH 31 MCHC 34 RDW 14 Plt Count 172 MPV 8 Neut % (Auto) 74.3 Lymph % (Auto) 20.9 L [place] % (Auto) 2.3 Eos % (Auto) 1.3 Baso % (Auto) 1.2 Absolute Neuts (auto) 4.6 Absolute Lymphs (auto) 1.3 Absolute Monos (auto) 0.1 Absolute Eos (auto) 0.1 Absolute Basos (auto) 0.1 Absolute Nucleated RBC 0 Nucleated RBC % 0 INR (Anticoag Therapy) 2.08 H Studies: CXR Clear. Sputum Gram's stain: 4+ gram-positive coccobacilli and 3+ gram- positive cocci in pairs. Nutrition: NPO Impression: 1. Acetaminophen hepatotoxicity is improving (as evidenced by decreasing bilirubin), but INR still twice normal and serum drug levels remain elevated. 2. Purulent tracheobronchitis. Plan: 1. Continue intravenous NAC. 2. Repeat drug level later today. 3. Start antibiotic Rx if patient develops fever or leukocytosis. Critical Care Time: 45 minutes
[2017-01-01] MEDS: Enoxaparin(*) 40 MG/0.4 ML SYR SUBCUT SCH (16:51)
[2017-01-01] MEDS ORDERED: Zosyn per Pharmacy* NOTE FOLLOW UP SCH (17:00)
[2017-01-01] MEDS ORDERED: D5W IVPB ONE (19:30)
[2017-01-01] MEDS ORDERED: ACETYLCYSTEINE IVPB ONE (19:30)
[2017-01-01] MEDS: ZOSYN 3.375 GM Q8H per EXTENDED INFUSION IVPB SCH ×2 (20:42)
[2017-01-02] MEDS: Chlorhexidine MOUTHWASH 0.12%* 15 ML UDC TOPICAL SCH ×7 (01:00→23:56)
[2017-01-02] MEDS: ZOSYN 3.375 GM Q8H per EXTENDED INFUSION IVPB SCH ×6 (05:08→20:47)
[2017-01-02 05:50] LABS: Hematocrit 43 % (42-52); Hemoglobin 14.4 g/dl (14.0-18.0); Mean Corpuscular HGB Conc 34 g/dl (31-36); Mean Corpuscular Hemoglobin 31 pg (27-31); Mean Corpuscular Volume 92 fL (80-94); Mean Platelet Volume 8 um3 (7.4-10.4); Red Blood Count 4.63 10^6/ul (4.0-5.4); Red Cell Distribution Width 14 % (10.5-15); White Blood Count 9.6 10^3/ul (3.5-10.8)
[2017-01-02 05:57] LABS: Acetaminophen < 15 mcg/mL
[2017-01-02 06:01] LABS: Albumin 2.7 g/dL (3.2-5.2); Alkaline Phosphatase 60 U/L (34-104); BUN/Creatinine Ratio 7.1 (8-20); Blood Urea Nitrogen 6 mg/dL (6-24); CO2 Carbon Dioxide 26 mmol/L (22-32); Calcium 8.4 mg/dL (8.6-10.3); Chloride 108 mmol/L (101-111); EGFR African American 125.4 (>60); EGFR Non-African American 97.5 (>60); Globulin 2.4 g/dL (2-4); Glucose 98 mg/dL (70-100); Sodium 138 mmol/L (133-145); Total Protein 5.1 g/dL (6.4-8.9)
[2017-01-02 06:04] LABS: Anion Gap 4 mmol/L (2-11)
[2017-01-02] MEDS: Propofol* 1000 MG (10 MG/ML 100 ml) @ Per Protocol (in ICU Pyxis) IV SCH ×3 (06:48→18:12)
--- NOTE | 2017-01-02 07:17 | RAD ---
INDICATION: Seizure COMPARISON: Most recent comparison chest x-ray December 31, 2016 TECHNIQUE: Single AP portable view of the chest was obtained. FINDINGS: Image quality is compromised due to the relative inferiority of a portable chest x-ray. The gastric tube and endotracheal tube appear to be appropriately positioned and unchanged from the prior radiograph. The heart and mediastinum exhibit normal size and contour. The lungs are grossly clear. There is no evidence of a large pleural effusion. Visualized bones are normal for the patient's age. IMPRESSION: No radiographic evidence for acute cardiopulmonary abnormality on this portable chest x-ray.
[2017-01-02] MEDS: Famotidine IV* 10 MG/ML 2 ML (20 mg) IV SCH ×2 (07:57→20:29)
--- NOTE | 2017-01-02 09:35 | PN ---
Critical Care Services: On propofol overnight. New problem: probable pneumonia right lower lobe. Started on PIP/TAZO - Gram's stain loaded with both gram-positives and gram- negatives. Vital Signs: Temp Pulse Resp BP SpO2 FiO2 99.9 F 100 25 152/91 97 30 Physical Exam: Gen:On propofol and mechanical ventilation HEENT: pupils midposition and reactive. Lungs: Coarse rhonchi. Crackles both bases. Abdomen: Not distended. Extremities: 1+edema Neuro: No apparent focal deficits Fluid Balance (Past 24 Hours): 01/02/17 06:59 Intake Total 4346 Output Total 5825 Balance -1479 Weight 150 lb Intake: IV Fluids 1006 KCL in Sterile Water LR NS (0.9%) 274 d5 lr 732 ns bolus IVPB 912 NS (0.9%) 45 d5 lr 867 Medicated IV 2428 acetylcysteine 2145 propofol 283 versed IV Narcotic Infusion Versed Output: NG Tube Drainage Amount 1175 Urine 850 Dawson 3800 Labs: 01/01/17 01/02/17 01/02/17 17:00 05:15 05:15 WBC 9.6 Hgb 14.4 Hct 43 Plt Count 153 Sodium 138 Potassium TNP Chloride 108 Carbon Dioxide 26 BUN 6 Creatinine 0.84 Glucose 98 Calcium 8.4 L Total Bilirubin 1.30 H AST TNP ALT 1802 Alkaline Phosphatase 60 Total Protein 5.1 L Albumin 2.7 L Globulin 2.4 Albumin/Globulin Ratio 1.1 Acetaminophen < 15 < 15 NOTE: ALT is increasing, but bilirubin is decreasing (?) Studies: CXR: Infiltrate at right lung base Nutrition: None Impression: 1. Pneumonia at right lung base. 2. Acetaminophen blood levels no longer elevated, but there has been a steady increase in ALT levels, which may indicate worsening hepatotoxicity (although bilirubin levels are declining). Plan: 1.Continue PIP/TAZO pending results of sputum culture. 2. Repeat LFTs today to verify pattern of changes. 3. Continue NAC for now 4. Wean from ventilator when ready (this may be delayed by the pneumonia). Prognosis very guarded at this time. Critical Care Time: 40 minutes
[2017-01-02] MEDS ORDERED: Dexmedetomidine* 200 MCG/2 ML 2 ML VIAL ONE (10:38)
[2017-01-02 10:41] LABS: ALT 1802 U/L (7-52)
[2017-01-02] MEDS: Dexmedetomidine* 200 MCG in NS 0.9% 50 ML* 48 ML IVPB SCH ×2 (11:12→18:18)
[2017-01-02] MEDS: ACETYLCYSTEINE IVPB SCH (13:13)
[2017-01-02] MEDS: D5W IVPB SCH (13:13)
[2017-01-02] MEDS: Enoxaparin(*) 40 MG/0.4 ML SYR SUBCUT SCH (16:51)
[2017-01-02] MEDS: D5LR 1000 ML BAG* 1,000 ML IV SCH (17:55)
[2017-01-03] MEDS: Dexmedetomidine* 200 MCG in NS 0.9% 50 ML* 48 ML IVPB SCH ×3 (01:50→14:33)
[2017-01-03] MEDS: Propofol* 1000 MG (10 MG/ML 100 ml) @ Per Protocol (in ICU Pyxis) IV SCH (01:57)
[2017-01-03] MEDS: D5W IVPB SCH ×2 (05:07→21:03)
[2017-01-03] MEDS: Chlorhexidine MOUTHWASH 0.12%* 15 ML UDC TOPICAL SCH ×3 (05:07→13:32)
[2017-01-03] MEDS: ACETYLCYSTEINE IVPB SCH ×2 (05:07→21:03)
[2017-01-03] MEDS: ZOSYN 3.375 GM Q8H per EXTENDED INFUSION IVPB SCH ×2 (05:35)
[2017-01-03 05:45] LABS: Albumin 2.5 g/dL (3.2-5.2); Direct Bilirubin 0.9 mg/dL (0.03-0.18); Globulin 1.9 g/dL (2-4); Indirect Bilirubin 0.8 mg/dL (0.3-1.0); Total Bilirubin 1.7 mg/dL (0.2-1.0); Total Protein 4.4 g/dL (6.4-8.9)
[2017-01-03] MEDS: Famotidine IV* 10 MG/ML 2 ML (20 mg) IV SCH ×2 (09:57→20:54)
[2017-01-03] MEDS: Levofloxacin 500 MG IVPREMIX(* 500 MG/100 ML BAG IVPB SCH (13:32)
[2017-01-03 13:35] LABS: Hematocrit 39 % (42-52); Hemoglobin 13.1 g/dl (14.0-18.0); Mean Corpuscular HGB Conc 34 g/dl (31-36); Mean Corpuscular Hemoglobin 31 pg (27-31); Mean Corpuscular Volume 92 fL (80-94); Mean Platelet Volume 8 um3 (7.4-10.4); Red Blood Count 4.27 10^6/ul (4.0-5.4); Red Cell Distribution Width 14 % (10.5-15); White Blood Count 6.5 10^3/ul (3.5-10.8)
[2017-01-03 13:39] LABS: Albumin 2.6 g/dL (3.2-5.2); BUN/Creatinine Ratio 8.9 (8-20); Calcium 8.2 mg/dL (8.6-10.3); Direct Bilirubin 0.9 mg/dL (0.03-0.18); EGFR African American 134.6 (>60); EGFR Non-African American 104.7 (>60); Indirect Bilirubin 1.1 mg/dL (0.3-1.0); Potassium 3.6 mmol/L (3.5-5.0); Total Protein 4.6 g/dL (6.4-8.9)
[2017-01-03] MEDS: D5LR 1000 ML BAG* 1,000 ML IV SCH (13:58)
--- NOTE | 2017-01-03 14:11 | PN ---
Critical Care Services: Major problem now is a rapid increase in liver enzymes (ALT predominantly) despite negligible acetaminophen levels and continued NAC Rx. No evidence of liver failure at this time. Other problem is ? pneumonia (RLL) with sputum growing H flu - borderline fever and no leukocytyosis, but we are treating with levofloxacin. Vital Signs: Temp Pulse Resp BP SpO2 FiO2 98.8 F 76 21 105/85 99 30 Physical Exam: Gen:Alert and follows verbal commands. HEENT: OT tube in p-lace. Lungs:Coarse rhonchi both lungs Abdomen: Not distended. Extremities: No cyanosis or edema. Neuro: No apparent neuro deficits. Fluid Balance (Past 24 Hours): 01/04/17 06:59 Intake Total 1104.9 Output Total 1250 Balance -145.1 Weight 153 lb 10z Intake: IV Fluids 418 ABX - ZOSYN KCL in Sterile Water LR NS (0.9%) 129 d5 lr 289 IVPB 146 LR NS (0.9%) 146 d5 lr Medicated IV 540.9 CC - Dexmedetomidine/ 27.6 Precedex acetylcysteine 478 propofol 35.3 IV Narcotic Infusion Versed Output: NG Tube Drainage Amount 100 Urine Dawson 1150 Labs: 01/03/17 01/03/17 05:20 05:20 WBC RBC Hgb Hct MCV MCH MCHC RDW Plt Count MPV INR (Anticoag Therapy) 1.63 H Sodium Potassium Chloride Carbon Dioxide Anion Gap BUN Creatinine Est GFR ( Amer) Est GFR (Non-Af Amer) BUN/Creatinine Ratio Glucose Lactic Acid Calcium Total Bilirubin 1.70 H Direct Bilirubin 0.90 H Indirect Bilirubin 0.8 AST 1195 H ALT 5160 H Alkaline Phosphatase 65 Total Creatine Kinase Total Protein 4.4 L Albumin 2.5 L Globulin 1.9 L Albumin/Globulin Ratio 1.3 01/03/17 01/03/17 13:00 13:00 WBC 6.5 Hgb 13.1 Hct 39 MCV 92 Plt Count 121 Sodium 140 Potassium 3.6 Chloride 109 Carbon Dioxide 27 Anion Gap 4 BUN 7 Creatinine 0.79 Glucose 112 H Lactic Acid 1.7 Calcium 8.2 Total Bilirubin 2.00 Direct Bilirubin 0.90 Indirect Bilirubin 1.1 AST 726 ALT 4385 Alkaline Phosphatase 67 Total Creatine Kinase 240 Total Protein 4.6 Albumin 2.6 Globulin 2.0 Albumin/Globulin Ratio 1.3 01/03/17 13:25 INR (Anticoag Therapy) 1.40 H Studies: MELD Score = 14 Nutrition: Tube feedings Impression: 1. Progressive acetaminophen hepatotoxicity despite Rx with N-acetylcysteine. However, the process has not reached the advanced stages at present (9i.e., no evidence of liver failure). 2. H influenza pneumonia 3. Markedly improved mental status since admission (? resolution of antihistamine OD) Plan: 1. Will consult Joe Vasquez (HERNANDEZ) regarding the possibility of liver transplantation, should it be indicated. 2. Continue NAC Rx (100 mg/kg q 16h) 3. Monitor liver enzymes, INR, bilirubin, and serum lactate. 4. Try to wean and extubate. Critical Care Time: 60 minutes (not including time spent with patient's family).
[2017-01-03] MEDS: Enoxaparin(*) 40 MG/0.4 ML SYR SUBCUT SCH (17:44)
[2017-01-04 08:10] LABS: Hematocrit 36 % (42-52); Hemoglobin 12.4 g/dl (14.0-18.0); Mean Corpuscular HGB Conc 34 g/dl (31-36); Mean Corpuscular Hemoglobin 31 pg (27-31); Mean Corpuscular Volume 91 fL (80-94); Mean Platelet Volume 8 um3 (7.4-10.4); Red Blood Count 3.99 10^6/ul (4.0-5.4); Red Cell Distribution Width 14 % (10.5-15); White Blood Count 4.5 10^3/ul (3.5-10.8)
[2017-01-04 08:22] LABS: Albumin 2.8 g/dL (3.2-5.2); BUN/Creatinine Ratio 7.5 (8-20); Calcium 8.2 mg/dL (8.6-10.3); EGFR African American 162.8 (>60); EGFR Non-African American 126.6 (>60); Globulin 2.1 g/dL (2-4); Indirect Bilirubin 1.3 mg/dL (0.3-1.0); Potassium 3.3 mmol/L (3.5-5.0); Total Bilirubin 2.3 mg/dL (0.2-1.0); Total Protein 4.9 g/dL (6.4-8.9)
[2017-01-04] MEDS ORDERED: Potassium Chloride LIQUID* 20 MEQ PACKET PO ONE (09:00)
[2017-01-04] MEDS: D5LR 1000 ML BAG* 1,000 ML IV SCH (09:03)
[2017-01-04] MEDS: Famotidine IV* 10 MG/ML 2 ML (20 mg) IV SCH ×2 (09:03→20:47)
--- NOTE | 2017-01-04 11:34 | PN ---
Critical Care Services: Has done well since extubation. Liver enzymes deceasing on continued NAC. Vital Signs: Temp Pulse Resp BP SpO2 FiO2 99.5 F 59 19 111/76 94 99 Physical Exam: Gen:Alert and oriented Lungs: Scattered rhonchi. Crackles at both bases. Extremities: No cyanosis or edema Neuro: No asterixis. Fluid Balance (Past 24 Hours): 01/04/17 06:59 Intake Total 2189.1 Output Total 3750 Balance -1560.9 Weight 153 lb Intake: IV Fluids 852.2 ABX - ZOSYN LR 397 NS (0.9%) 166.2 d5 lr 289 IVPB 203 LR NS (0.9%) 203 d5 lr Medicated IV 1053.9 CC - Dexmedetomidine/ 27.6 Precedex acetylcysteine 991 propofol 35.3 Oral 80 Output: NG Tube Drainage Amount 100 Urine Dawson 3650 Labs: 01/04/17 07:40 Sodium 139 Potassium 3.3 L Chloride 109 Carbon Dioxide 25 BUN 5 L Creatinine 0.67 Glucose 101 Total Bilirubin 2.30 Direct Bilirubin 1.00 Indirect Bilirubin 1.3 AST 275 ALT 2761 Alkaline Phosphatase 71 Ammonia 85 Total Protein 4.9 L Albumin 2.8 L Globulin 2.1 Albumin/Globulin Ratio 1.3 01/04/17 01/04/17 07:40 07:40 WBC 4.5 Hgb 12.4 L Hct 36 L Plt Count 113 L INR (Anticoag Therapy) 1.31 Lactic Acid 1.1 Studies: None today Nutrition: Oral diet (unrestricted) Impression: Hepatotoxicity appears to be resolving. However, continuing elevation of biirubin is concerning. There is no evidence of hepatic failure. Plan: 1. Continue IV N-acetylcysteine, and monitor liver enzymes, bilirubin, and ammonia. 2. Continue Rx for H flu pneumonia. 3. I have sent a psych consult because of the alleged suicide attempt. Critical Care Time: 40 minutes
[2017-01-04] MEDS: Levofloxacin 500 MG IVPREMIX(* 500 MG/100 ML BAG IVPB SCH (12:06)
[2017-01-04] MEDS: D5W IVPB SCH (13:47)
[2017-01-04] MEDS: ACETYLCYSTEINE IVPB SCH (13:47)
[2017-01-04] MEDS: Enoxaparin(*) 40 MG/0.4 ML SYR SUBCUT SCH (15:46)
[2017-01-04 17:24] LABS: Albumin 2.8 g/dL (3.2-5.2); Direct Bilirubin 0.7 mg/dL (0.03-0.18); Indirect Bilirubin 1.2 mg/dL (0.3-1.0); Total Bilirubin 1.9 mg/dL (0.2-1.0); Total Protein 4.8 g/dL (6.4-8.9)
[2017-01-05] MEDS: ACETYLCYSTEINE IVPB SCH ×2 (05:31→20:48)
[2017-01-05] MEDS: D5W IVPB SCH ×2 (05:31→20:48)
[2017-01-05] MEDS ORDERED: oxyCODONE TAB* 5 MG TAB PO ONE (06:05)
[2017-01-05 07:05] LABS: Hematocrit 35 % (42-52); Mean Corpuscular HGB Conc 35 g/dl (31-36); Mean Corpuscular Hemoglobin 32 pg (27-31); Mean Corpuscular Volume 92 fL (80-94); Mean Platelet Volume 9 um3 (7.4-10.4); Red Blood Count 3.79 10^6/ul (4.0-5.4); Red Cell Distribution Width 14 % (10.5-15); White Blood Count 5.6 10^3/ul (3.5-10.8)
[2017-01-05 07:10] LABS: Albumin 2.8 g/dL (3.2-5.2); BUN/Creatinine Ratio 8.9 (8-20); Calcium 8.1 mg/dL (8.6-10.3); Direct Bilirubin 0.7 mg/dL (0.03-0.18); EGFR African American 200.3 (>60); EGFR Non-African American 155.7 (>60); Potassium 3.4 mmol/L (3.5-5.0); Total Bilirubin 1.7 mg/dL (0.2-1.0); Total Protein 4.8 g/dL (6.4-8.9)
[2017-01-05] MEDS: Famotidine IV* 10 MG/ML 2 ML (20 mg) IV SCH (09:58)
[2017-01-05] MEDS: Levofloxacin 500 MG IVPREMIX(* 500 MG/100 ML BAG IVPB SCH (12:57)
[2017-01-05] MEDS: Enoxaparin(*) 40 MG/0.4 ML SYR SUBCUT SCH (15:58)
[2017-01-05] MEDS ORDERED: Potassium Chlor TAB* 20 MEQ TAB.ER PO ONE (16:00)
--- NOTE | 2017-01-05 16:12 | PN ---
Critical Care Services: Continues to be alert and oriented. Seen by psychiatry service today - they will admite to behavioral unit when medically cleared. Continues on IV NAC because of elevated liver enzymes.. Vital Signs: Temp Pulse Resp BP SpO2 FiO2 99 F 67 16 130/90 97 RA Physical Exam: Gen: Alert. No distress. Answers questions appropriately. Lungs: Occasional rhonchi. Neuro: No asterixis Fluid Balance (Past 24 Hours): I= O= Net Intake & Output 01/05/17 06:59 Intake Total 3986.5 Output Total 1225 Balance +2761.5 Weight 147 lb 7.828 oz Intake: IV Fluids 2259.5 ABX - ZOSYN LR 481 NS (0.9%) 71.5 d5 lr 1707 IVPB 111 LR NS (0.9%) 109 d5 lr 2 Medicated IV 1426 CC - Dexmedetomidine/ Precedex acetylcysteine 1426 propofol Oral 190 Output: NG Tube Drainage Amount Urine 900 Dawson 325 Other: Estimated Void Medium Date of Last Bowel 01/04/17 Movement # Bowel Movements 1 Estimated Stool Amount Medium # Voids 2 Labs: 01/05/17 06:30 INR (Anticoag Therapy) 1.28 Sodium 139 Potassium 3.4 L Chloride 108 Carbon Dioxide 24 Anion Gap 7 BUN 5 L Creatinine 0.56 L Glucose 169 Lactic Acid 1.0 Calcium 8.1 L Total Bilirubin 1.70 Direct Bilirubin 0.70 H Indirect Bilirubin 1.0 AST 114 ALT 1811 Alkaline Phosphatase 68 Ammonia 71 Total Protein 4.8 L Albumin 2.8 L Globulin 2.0 Albumin/Globulin Ratio 1.4 01/05/17 06:55 WBC 5.6 RBC 3.79 L Hgb 12.0 L Hct 35 L MCV 92 MCH 32 H MCHC 35 RDW 14 Plt Count 128 L Studies: Non today Nutrition: Oral diet Impression: Hepatotoxicity slowly resolving. Plan: Continue IV NAC for now, and monitor liver function.
[2017-01-05] MEDS ORDERED: Famotidine TAB* 20 MG PO ONE (16:26)
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
[2017-01-06 06:12] LABS: Hematocrit 35 % (42-52); Mean Corpuscular HGB Conc 34 g/dl (31-36); Mean Corpuscular Hemoglobin 31 pg (27-31); Mean Corpuscular Volume 92 fL (80-94); Mean Platelet Volume 8 um3 (7.4-10.4); Red Blood Count 3.82 10^6/ul (4.0-5.4); Red Cell Distribution Width 14 % (10.5-15); White Blood Count 7.7 10^3/ul (3.5-10.8)
[2017-01-06 06:28] LABS: Albumin 2.9 g/dL (3.2-5.2); Calcium 8.3 mg/dL (8.6-10.3); Direct Bilirubin 0.5 mg/dL (0.03-0.18); EGFR African American 196.2 (>60); EGFR Non-African American 152.6 (>60); Globulin 2.3 g/dL (2-4); Indirect Bilirubin 0.8 mg/dL (0.3-1.0); Potassium 3.3 mmol/L (3.5-5.0); Total Bilirubin 1.3 mg/dL (0.2-1.0); Total Protein 5.2 g/dL (6.4-8.9)
[2017-01-06] MEDS ORDERED: Influenza VAC *QUAD* 2017-18* 0.5 ML SYRINGE IM ONE (09:00)
[2017-01-06] MEDS ORDERED: Pneumococcal *Vac Polyvalent 0.5 ML VIAL IM ONE (09:00)
[2017-01-06] MEDS ORDERED: Levofloxacin TAB* 500 MG PO SCH (13:00)
--- NOTE | 2017-01-06 14:38 | DS ---
DISCHARGE SUMMARY: DATE OF ADMISSION: 12/30/16 DATE OF DISCHARGE: 01/06/17 HOSPITAL COURSE: This patient is a 46-year-old white male who was admitted with obtundation and sub sequently discovered to have a toxic serum acetaminophen level (371). He was treated with intraveno us N-acetylcysteine and was also intubated and placed on mechanical ventilation. During the hospita lization, the patient's serum acetaminophen level gradually declined to negligible levels; however, there was evidence of substantial hepatotoxicity with ALT levels increasing from 218 on admission to a peak of 5160 four days after admission and subsequently declining to 1323 on the day of discharge . The patient had been weaned from mechanical ventilation and extubated without incident and was al ert and oriented during the remainder of the hospitalization. On the day of discharge, the patient was sitting in a chair and resting comfortably and in no distress. Poison Control had been followin g the patient and felt that it was safe to discontinue the intravenous acetaminophen when we did. The acetaminophen overdose was intentional and represented a suicide attempt. Because of this, the p yesika was seen in consultation by the psychiatry service who felt that further management in the [facility] unit was warranted when the patient was medically able to do so. The purpose of the present discharge is to admit the patient to the behavioral health unit at [facility]. The patient is aware of these plans and is in agreement. DISCHARGE DIAGNOSES: 1. Acetaminophen overdose as a suicide gesture. 2. Acetaminophen hepatotoxicity. [id number]/[facility] #: [id number]
[2017-01-06] MEDS ORDERED: Potassium Chlor TAB* 20 MEQ TAB.ER PO ONE (16:20)
[2017-01-07 06:39] LABS: Hematocrit 37 % (42-52); Hemoglobin 12.7 g/dl (14.0-18.0); Mean Corpuscular HGB Conc 34 g/dl (31-36); Mean Corpuscular Hemoglobin 32 pg (27-31); Mean Corpuscular Volume 92 fL (80-94); Mean Platelet Volume 8 um3 (7.4-10.4); Red Blood Count 4.01 10^6/ul (4.0-5.4); Red Cell Distribution Width 14 % (10.5-15); White Blood Count 7.6 10^3/ul (3.5-10.8)
[2017-01-07 06:54] LABS: BUN/Creatinine Ratio 12.3 (8-20); Calcium 8.6 mg/dL (8.6-10.3); Direct Bilirubin 0.5 mg/dL (0.03-0.18); EGFR African American 147.5 (>60); EGFR Non-African American 114.7 (>60); Globulin 2.5 g/dL (2-4); Indirect Bilirubin 0.9 mg/dL (0.3-1.0); Total Bilirubin 1.4 mg/dL (0.2-1.0); Total Protein 5.5 g/dL (6.4-8.9)
--- NOTE | 2017-01-07 10:08 | RAD ---
HISTORY: Fever of unknown origin, history of pneumonia COMPARISONS: January 02, 2017 VIEWS: 1: frontal portable view of the chest at 9:53 AM FINDINGS: LINES AND TUBES: None. CARDIOMEDIASTINAL SILHOUETTE: The cardiomediastinal silhouette is normal for portable technique. PLEURA: The costophrenic angles are sharp. No pleural abnormalities are noted. LUNG PARENCHYMA: There is hyperinflation. There is minimal linear opacification of the left lung base. ABDOMEN: The upper abdomen is clear. There is no subphrenic gas. BONES AND SOFT TISSUES: No bone or soft tissue abnormalities are noted. IMPRESSION: 1. HYPERINFLATION. 2. MINIMAL PLATELIKE ATELECTASIS OF THE LEFT LUNG BASE. NO CONSOLIDATION.
[2017-01-07] MEDS: Levofloxacin TAB* 500 MG PO SCH (10:17)
[2017-01-07] MEDS: Famotidine TAB* 20 MG PO SCH (10:17)
[2017-01-07] MEDS: Enoxaparin(*) 40 MG/0.4 ML SYR SUBCUT SCH (10:18)
--- NOTE | 2017-01-07 10:52 | PN ---
Critical Care Services: NOTE: See discharge summary on 01/06/2017 for the progress note on that day - discharge to behavioral health unit was planned for 01/06 but did not take place (presumably because the patient has a Hx as a sex offender). New problem today is fever with non-productive cough - patient had been on levofloxacin for H flu tracheobronchitis/pneumonia, but this was stopped yesterday. Liver enzymes continue to decline, off the NAC. Vital Signs: Temp Pulse Resp BP SpO2 FiO2 101.1 F 98 25 110/78 94 Physical Exam: Gen:Alert and seems comfortable. Lungs: No crackles. Abdomen:No tenderness Extremities: No cyanosis or edema Neuro:No asterixis Fluid Balance (Past 24 Hours): Not relevant Labs: Laboratory Results - last 24 hr 01/07/17 01/07/17 06:25 06:25 WBC 7.6 Hgb 12.7 Hct 37 Plt Count 157 INR (Anticoag Therapy) 1.14 Sodium 142 Potassium 4.0 Chloride 110 Carbon Dioxide 28 BUN 9 Creatinine 0.73 Glucose 94 Total Bilirubin 1.40 AST 74 ALT 943 Alkaline Phosphatase 74 Ammonia 62 Total Protein 5.5 L Albumin 3.0 L Globulin 2.5 Albumin/Globulin Ratio 1.2 Studies: CXR: No infiltrates. Nutrition: Unrestricted diet Impression: 1. Fever - most likely from a tracheobronchitis - doubt liver is the source. 2. Hepatotoxicity from acetaminophen is resolving. 3. Medically cleared for transfer to behavioral health unit. Plan: 1. Have restarted levofloxacin for tracheobronchitis. 2. Will continue to monitor liver enzymes, ammonia, etc. 3. Will discharge to behavioral health unit when a bed is available. Will continue suicide precautions until transfer.
[2017-01-08 06:43] LABS: Hematocrit 38 % (42-52); Hemoglobin 12.9 g/dl (14.0-18.0); Mean Corpuscular HGB Conc 34 g/dl (31-36); Mean Corpuscular Hemoglobin 32 pg (27-31); Mean Corpuscular Volume 93 fL (80-94); Mean Platelet Volume 8 um3 (7.4-10.4); Red Blood Count 4.09 10^6/ul (4.0-5.4); Red Cell Distribution Width 14 % (10.5-15); White Blood Count 7.1 10^3/ul (3.5-10.8)
[2017-01-08 06:57] LABS: Albumin 3.2 g/dL (3.2-5.2); BUN/Creatinine Ratio 19.7 (8-20); Calcium 8.8 mg/dL (8.6-10.3); Direct Bilirubin 0.4 mg/dL (0.03-0.18); EGFR African American 152.3 (>60); EGFR Non-African American 118.4 (>60); Globulin 2.7 g/dL (2-4); Indirect Bilirubin 0.9 mg/dL (0.3-1.0); Potassium 3.5 mmol/L (3.5-5.0); Total Bilirubin 1.3 mg/dL (0.2-1.0); Total Protein 5.9 g/dL (6.4-8.9)
[2017-01-08] MEDS: D5W IVPB SCH (08:32)
[2017-01-08] MEDS: ACETYLCYSTEINE IVPB SCH (08:32)
[2017-01-08] MEDS: Levofloxacin TAB* 500 MG PO SCH (09:14)
[2017-01-08] MEDS: Famotidine TAB* 20 MG PO SCH (09:14)
[2017-01-08] MEDS: Enoxaparin(*) 40 MG/0.4 ML SYR SUBCUT SCH (09:15)
--- NOTE | 2017-01-08 12:44 | PN ---
Progress Note - Progress Note Date of Service: 01/08/17 Note: CRITICAL CARE MEDICINE Date: 01/08/17 Time: 1200 SUBJECTIVE: Patient seen and examined. PHYSICAL EXAM: Vital Signs: Reviewed. Neurologic: stable. HEENT: pupils equal. Sclera anicteric. Trachea midline. Cardiovascular: S1 S2, reg Respiratory: cough but no rales nor wheeze Abdomen: Soft, nt. Extremities: Warm. LABS: Reviewed. IMAGING: Reviewed. MEDICATIONS: Reviewed. ASSESSMENT: 46 M Post APAP PM OD with hepatoxicity recovery Suicidal attempts Tx for traceobornchtitis PLAN: doing well medically was restarted on levaquin and can complete 5 day total course tolerating po. better spirits. medically stable for MHU, awaiting bed Supportive and preventative care as ordered. SUP: H2 VTE prophylaxis: lovenox Disposition: to floor while awaiting MHU Code Status: Full Critical Care Time: 20min Komal Young DO
--- NOTE | 2017-01-08 13:32 | DS ---
CRITICAL CARE MEDICINE DISCHARGE SUMMARY ADDENDUM: Please see Dr. Dennison's discharge summary from 01/06/2017 ADMISSION DATE: 12/30/2016 ICU DISCHARGE DATE: 01/08/2017 DIAGNOSIS: 1. Tylenol overdose with hepatotoxicity. 2. Bronchitis. 3. Suicidal intent. MEDICATIONS AT DISCHARGE: 1. To complete levaquin 500mg po daily through 01/11/2017. 2. Currently on lovenox and pepcid prophylaxis which can conclude upon discharge. ALLERGIES: None. HOSPITAL COURSE: Please see Dr. Dennison's discharge summary from 01/06/2017. Medically stable. DISPOSITION: to floor bed with 1:1 while awaiting placement with MHU. DIET: Regular. ACTIVITY: OOB as tolerated CODE STATUS: FULL. SPECIAL INSTRUCTIONS: Should have follow up LFTs in 1-2 weeks to follow up resolution of transaminitis. Ammonia level follow up not indicated unless any signs/concerns for encephalopathy. FOLLOW UP: with treating medical/psychiatric services Komal Young DO
[2017-01-08 13:48] VITALS: BP 115/76
== END 2017-01-08 19:34 | DRG 812 ==
LOC: ED 13:52 → ICU 15:08 → MEDTELE 01-08 13:56
PROVIDERS: ADMIT Internal Medicine Critical Care Medicine; ATTEND Internal Medicine Critical Care Medicine
PROC: 4A10X4Z Monitoring of Central Nervous Electrical Activity, External Approach (ICD-10-PCS; principal; 2016-12-30)
PROC: 5A1955Z Respiratory Ventilation, Greater than 96 Consecutive Hours (ICD-10-PCS; 2016-12-30)
PROC: 0BH17EZ Insertion of Endotracheal Airway into Trachea, Via Natural or Artificial Opening (ICD-10-PCS; 2016-12-30)
PROC: 5A09357 Assistance with Respiratory Ventilation, Less than 24 Consecutive Hours, Continuous Positive Airway Pressure (ICD-10-PCS; 2017-01-03)
DX: T39.1X2A Poisoning by 4-Aminophenol derivatives, intentional self-harm, initial encounter (principal); J96.01 Acute respiratory failure with hypoxia; J14 Pneumonia due to Hemophilus influenzae; G93.40 Encephalopathy, unspecified; F33.2 Major depressive disorder, recurrent severe without psychotic features; J44.9 Chronic obstructive pulmonary disease, unspecified; G89.29 Other chronic pain; M54.2 Cervicalgia; M54.9 Dorsalgia, unspecified; E87.6 Hypokalemia; F12.90 Cannabis use, unspecified, uncomplicated; J40 Bronchitis, not specified as acute or chronic; K76.89 Other specified diseases of liver; G47.33 Obstructive sleep apnea (adult) (pediatric); E78.5 Hyperlipidemia, unspecified; K21.9 Gastro-esophageal reflux disease without esophagitis; Z81.8 Family history of other mental and behavioral disorders; Z82.49 Family history of ischemic heart disease and other diseases of the circulatory system; Y92.9 Unspecified place or not applicable; Z91.410 Personal history of adult physical and sexual abuse; F17.210 Nicotine dependence, cigarettes, uncomplicated
CPT/HCPCS: 36415; 36600; 70450; 71010; 72125; 80048; 80053; 80076; 80307; 80320; 80329; 81003; 82140; 82330; 82550; 82803; 83605; 83735; 84100; 84443; 84450; 84460; 84484; 85025; 85027; 85610; 87040; 87070; 87077; 87185; 87186; 87205; 87641; 87899; 93005; 94002; 94003; 94660; 94760; 95822; 99406; A9270-GY; G0480; J0132; J0330; J1650; J1956; J2060; J2250; J2543; J2704; J3475; J3480; J7060

== ENCOUNTER 2017-01-08 14:00 | Inpatient (IN) | payer MEDICAID, OTHER ==
[2017-01-08] MEDS ORDERED: Mouth Piece, Nicotine* 1 EACH CARTRIDGE INH SCH (21:48)
[2017-01-08] MEDS ORDERED: Al Hydrox/Mg Hydrox/Simet LIQ* 30 ML UDC PO PRN (21:48)
[2017-01-08] MEDS ORDERED: Nicotine Inhaler* 10 MG AMP INH PRN (21:48)
[2017-01-08] MEDS ORDERED: Acetaminophen TAB* 325 MG PO PRN (21:48)
[2017-01-08] MEDS ORDERED: Nicotine GUM* 2 MG PO PRN (21:48)
[2017-01-09] MEDS: Vitamin THERAPEUTIC TAB PO SCH (08:59)
[2017-01-09] MEDS ORDERED: Influenza VAC *QUAD* 2017-18* 0.5 ML SYRINGE IM ONE (09:00)
[2017-01-09] MEDS ORDERED: Pneumococcal *Vac Polyvalent 0.5 ML VIAL IM ONE (09:00)
[2017-01-09] MEDS: Nicotine PATCH 21 MG/24 HR* PATCH TRANSDERM SCH (09:00)
[2017-01-09] MEDS ORDERED: Albuterol HFA INHALER* 8 gm MDI INH PRN (13:13)
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
[2017-01-09] MEDS: Nicotine Patch Removal NOTE PATCH OFF SCH (20:03)
[2017-01-09] MEDS: Mometasone/Formoter 100/5 MDI INH SCH (20:03)
[2017-01-09] MEDS: Mirtazapine TAB* 15 MG PO SCH (20:05)
[2017-01-10] MEDS: Mometasone/Formoter 100/5 MDI INH SCH ×2 (07:25→20:36)
[2017-01-10] MEDS: Vitamin THERAPEUTIC TAB PO SCH (07:26)
--- NOTE | 2017-01-10 11:05 | PN ---
MHU: Group Therapy Note - Service Type Service Type: 77006 Group Psychotherapy - Cognitive Behavioral Group Therapy ( CBT):Patient was attentive and participatory in CBT programming this morning, and remained in good behavioral control. Patient expressed positive insights regarding relevant treatment interventions and goals.
--- NOTE | 2017-01-10 11:25 | PN ---
Subjective - Subjective Service Type: 04497 Hosp care 15 min low complexity Subjective: Rafi remains depressed but more hopeful than prior to admission. He denies SI. He states that he fell asleep fine last night but had nail puller awakening and the mirtazapine did not keep him asleep. He denies side effects from his first dose. He is fatigued and would like to nap but has committed himself to making it to groups today and getting the most out of the inpatient experience. He is friendly and interactive. Objective - Appearance Appearance: Thin Framed Dysmorphic Features: No Hygiene: Normal Grooming: Fairly Well Kept - Behavior Psychomotor Activities: Abnormal-Decreased Exhibits Abnormal Movement: No - Attitude and Relatedness Attitude and Relatedness: Cooperative Eye Contact: Fair - Speech Quality: Unpressured Latencies: Long Quantity: Terse - Mood Patient's Decription of Mood: "Sad" - Affect Observed Affect: Constricted Affect Consistent with: Dysphoria - Thought Process Patient's Thought Process: Coherent Thought Content: No Passive Wish, No Suicidal Planning, No Homicidal Ideation, No Paranoid Ideation - Sensorium Experiencing Hallucinations: No, Sensorium is Clear Type of Hallucinations: Visual: No, Auditory: No, Command: No - Level of Consciousness Level of Consciousness: Alert Orientation: Yes Intact, Yes Orientated to Time, Yes Orientated to Place, Yes Orientated to Person - Impulse Control Impulse Control: Tenuous - Insight and Judgement Insight and Judgement: Fair - Group Participation Particating in Group Activities: Yes - Medication Management Medication Management Adherence: Yes Assessment - Assessment Merits Inpatient Hospitalization: For Immediate Safety, For Stabilization Inpatient DSM-IV Dx: MDD, recurrent, severe without psychotic features Clinical Impression: 46 y.o. , white male Level III sex offender with a history of recurrent depression and chronic cannabis use transferred from the ICU on a 9.39 legal status after receiving medical clearance for a suicidal overdose on a full bottle of Tylenol PM. Plan - Plan Treatment Plan: Name: RAFI HAQ JR Birthdate: 1970 [id number] The patient has been started on mirtazapine 15mg PO qhs. Await med effect. Continue inpatient services. Continued Medication Management: Start Medication Medications: Current Medications Acetaminophen (Tylenol Tab*) 650 mg PO Q4H PRN PRN Reason: PAIN or TEMP > 101 F Al Hydrox/Mg Hydrox/Simethicone (Maalox Plus*) 30 ml PO Q4H PRN PRN Reason: INDIGESTION Albuterol (Ventolin Hfa Inhaler*) 2 puff INH Q4H PRN PRN Reason: SOB/WHEEZING Device (Nicotine Mouth Piece*) 1 each INH .[facility] Mirtazapine (Remeron Tab*) 15 mg PO BEDTIME [facility] Last Admin: 01/09/17 20:05 Dose: 15 mg Mometasone Furoate/Formoterol Fumar (Dulera 100/5 Mdi*) 2 puff INH BID [facility] Last Admin: 01/10/17 07:25 Dose: 2 puff Multivitamins (Theragran Tab*) 1 tab PO DAILY [facility] Last Admin: 01/10/17 07:26 Dose: 1 tab Nicotine (Nicotine Inhaler*) 10 mg INH Q2H PRN PRN Reason: CRAVING Nicotine (Nicotine Patch 21 Mg/24 Hr*) 1 patch TRANSDERM DAILY [facility] Last Admin: 01/09/17 09:00 Dose: Not Given Nicotine Polacrilex (Nicotine Gum*) 2 mg PO Q2H PRN PRN Reason: CRAVING Pharmacy Profile Note (Nicotine Patch Removal Note*) 1 note PATCH OFF [address] [facility] Last Admin: 01/09/17 20:03 Dose: Not Given - Discharge Plan Discharge Plan: Inpatient Hospitalization
[2017-01-10] MEDS: Nicotine PATCH 21 MG/24 HR* PATCH TRANSDERM SCH (14:22)
[2017-01-10] MEDS: Mirtazapine TAB* 15 MG PO SCH (20:36)
[2017-01-10] MEDS: Nicotine Patch Removal NOTE PATCH OFF SCH (20:36)
[2017-01-11] MEDS: Nicotine PATCH 21 MG/24 HR* PATCH TRANSDERM SCH (07:16)
[2017-01-11] MEDS: Mometasone/Formoter 100/5 MDI INH SCH ×2 (07:16→20:11)
[2017-01-11] MEDS: Vitamin THERAPEUTIC TAB PO SCH (07:17)
--- NOTE | 2017-01-11 13:01 | PN ---
Subjective - Subjective Service Type: 84401 Hosp care 15 min low complexity Subjective: Rafi is tolerating his medication well and slept much better last night. He continues to deny SI and states that his mood is much more "hopeful" than before. He is agreeable with enhanced outpatient MH services at [facility] and states that he already has a good working relationship with therapist Yoshi Aguilar there. He is fully participatory in milieu activities thus far and has been deemed appropriate to receive fewer restrictions by the treatment team. Objective - Appearance Appearance: Thin Framed Dysmorphic Features: No Hygiene: Normal Grooming: Well Kept - Behavior Psychomotor Activities: Normal Exhibits Abnormal Movement: No - Attitude and Relatedness Attitude and Relatedness: Cooperative Eye Contact: Good - Speech Quality: Unpressured Latencies: Normal Quantity: Appropriate - Mood Patient's Decription of Mood: "Good" - Affect Observed Affect: Good Affect Consistent with: Euthymia - Thought Process Patient's Thought Process: Coherent Thought Content: No Passive Wish, No Suicidal Planning, No Homicidal Ideation, No Paranoid Ideation - Sensorium Experiencing Hallucinations: No, Sensorium is Clear Type of Hallucinations: Visual: No, Auditory: No, Command: No - Level of Consciousness Level of Consciousness: Alert Orientation: Yes Intact, Yes Orientated to Time, Yes Orientated to Place, Yes Orientated to Person - Impulse Control Impulse Control: Intact - Insight and Judgement Insight and Judgement: Good - Group Participation Particating in Group Activities: Yes - Medication Management Medication Management Adherence: Yes Assessment - Assessment Merits Inpatient Hospitalization: Consolidate Improvements, Pending Safe DC Plan Inpatient DSM-IV Dx: MDD, recurrent, severe without psychotic features Clinical Impression: 46 y.o. , white male Level III sex offender with a history of recurrent depression and chronic cannabis use transferred from the ICU on a 9.39 legal status after receiving medical clearance for a suicidal overdose on a full bottle of Tylenol PM. Plan - Plan Treatment Plan: Name: RAFI HAQ JR Birthdate: 1970 [id number] The patient has been started on mirtazapine 15mg PO qhs and appears to be improving with milieu care. Likely d/c tomorrow with f/u at [facility]. Continued Medication Management: Start Medication Medications: Current Medications Acetaminophen (Tylenol Tab*) 650 mg PO Q4H PRN PRN Reason: PAIN or TEMP > 101 F Al Hydrox/Mg Hydrox/Simethicone (Maalox Plus*) 30 ml PO Q4H PRN PRN Reason: INDIGESTION Albuterol (Ventolin Hfa Inhaler*) 2 puff INH Q4H PRN PRN Reason: SOB/WHEEZING Device (Nicotine Mouth Piece*) 1 each INH .[facility] Mirtazapine (Remeron Tab*) 15 mg PO BEDTIME [facility] Last Admin: 01/10/17 20:36 Dose: 15 mg Mometasone Furoate/Formoterol Fumar (Dulera 100/5 Mdi*) 2 puff INH BID [facility] Last Admin: 01/11/17 07:16 Dose: 2 puff Multivitamins (Theragran Tab*) 1 tab PO DAILY [facility] Last Admin: 01/11/17 07:17 Dose: 1 tab Nicotine (Nicotine Inhaler*) 10 mg INH Q2H PRN PRN Reason: CRAVING Nicotine (Nicotine Patch 21 Mg/24 Hr*) 1 patch TRANSDERM DAILY [facility] Last Admin: 01/11/17 07:16 Dose: Not Given Nicotine Polacrilex (Nicotine Gum*) 2 mg PO Q2H PRN PRN Reason: CRAVING Pharmacy Profile Note (Nicotine Patch Removal Note*) 1 note PATCH OFF [address] [facility] Last Admin: 01/10/17 20:36 Dose: Not Given - Discharge Plan Discharge Plan: Outpatient Follow Up Outpatient Program: [facility]
[2017-01-11] MEDS: Nicotine Patch Removal NOTE PATCH OFF SCH (20:11)
[2017-01-11] MEDS: Mirtazapine TAB* 15 MG PO SCH (20:11)
[2017-01-12] MEDS: Nicotine PATCH 21 MG/24 HR* PATCH TRANSDERM SCH (07:24)
[2017-01-12] MEDS: Mometasone/Formoter 100/5 MDI INH SCH (07:25)
[2017-01-12] MEDS: Vitamin THERAPEUTIC TAB PO SCH (07:25)
[2017-01-12 07:41] VITALS: BP 117/79
--- NOTE | 2017-01-12 14:33 | PN ---
MHU: Group Therapy Note - Service Type Service Type: 53629 Group Psychotherapy - Cognitive Behavioral Group Therapy ( CBT):Patient was attentive and participatory in CBT programming this morning, and remained in good behavioral control. Patient expressed positive insights regarding relevant treatment interventions and goals.
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
== END 2017-01-12 16:10 | disposition home or self-care (01) | DRG 751 ==
LOC: BSU 19:55
PROVIDERS: ADMIT Psychiatry & Neurology Psychiatry; ATTEND Psychiatry & Neurology Psychiatry
PROC: 3E0234Z Introduction of Serum, Toxoid and Vaccine into Muscle, Percutaneous Approach (ICD-10-PCS; principal; 2017-01-09)
PROC: GZHZZZZ Group Psychotherapy (ICD-10-PCS; 2017-01-10)
DX: F33.2 Major depressive disorder, recurrent severe without psychotic features (principal); J44.9 Chronic obstructive pulmonary disease, unspecified; F17.210 Nicotine dependence, cigarettes, uncomplicated; E78.5 Hyperlipidemia, unspecified; F12.20 Cannabis dependence, uncomplicated; R45.84 Anhedonia; G47.00 Insomnia, unspecified; K21.9 Gastro-esophageal reflux disease without esophagitis; G47.33 Obstructive sleep apnea (adult) (pediatric); R62.50 Unspecified lack of expected normal physiological development in childhood; Z23 Encounter for immunization
CPT/HCPCS: 90686; 90732; 90853; 99222; 99231; 99238; 99406; A9270-GY

== ENCOUNTER 2018-03-11 09:05 | Inpatient (IN) | payer OTHER ==
--- OUTSIDE RECORDS SUMMARY | 2018-03-11 09:22 | XMS REPORT | Continuity of Care Document ---
:1970 External Reference #:[id number] Author Name Yaz Whittington Care Team Providers Name Role Phone Claudio Arango MD Care Team Information Mixing Technician Unavailable Claudio Arango MD Primary Care Physician Unavailable Payers Type Date Identification Numbers Payment Provider Subscriber Effective: Policy Number: [id number] [employer] Rafi Haq JR 2011 Medicaid PayID: [id number] [address] [address] [place] [address] Effective: 2010 Policy Number: [employer] Rafi Haq JR [id number] Expires: 2011 PayID: [id number] [address] [address] [place] [address] Advance Directives Description No Information Available Problems Date Description Provider Status Onset: 03/05/2011 Hypo-osmolality and or Claudio Arango M.D. Active hyponatremia Onset: 03/05/2011 Hyperlipidemia Benjy Vela M.D. Onset: 03/05/2011 Tobacco user Benjy Vela M.D. Onset: 03/07/2011 Chronic obstructive lung disease Claudio Arango M.D. Active Onset: 03/07/2011 Leukoplakia of oral mucosa Claudio Arango M.D. Active Onset: 04/24/2011 Disorder of lumbar disc Claudio Arango M.D. Active Onset: 02/21/2012 Cervical disc disorder Claudio Arango M.D. Active Onset: 07/14/2014 Gastroesophageal reflux disease Claudio Arango M.D. Active Onset: 07/06/2015 Sleep apnea Claudio Arango M.D. Active Onset: 04/21/2015 Obstructive sleep apnea syndrome Prabha Olivas DNP, RN, Active [employer] Onset: 11/19/2015 Malaise and fatigue Claudio Arango M.D. Active Onset: 11/19/2015 Major depressive disorder, single Claudio Arango M.D. Active episode, unspecified Onset: 12/08/2015 Insomnia Claudio Arango M.D. Active Onset: 02/16/2016 Mixed hyperlipidemia Claudio Arango M.D. Active Onset: 08/10/2016 Brachial neuritis Claudio Arango M.D. Active Onset: 09/14/2017 Thoracic and lumbosacral neuritis Claudio Arango M.D. Active Onset: 09/14/2017 Posterior rhinorrhea Claudio Arango M.D. Active Onset: 03/07/2011 Acute bronchitis Claudio Arango M.D. Inactive Inactive: 07/12/2015 Onset: 12/18/2011 Acute sinusitis Claudio Arango M.D. Inactive Inactive: 07/12/2015 Onset: 05/14/2013 Acquired spondylolisthesis Sabas White M.D. Inactive Inactive: 07/12/2015 Onset: 05/14/2013 Lumbosacral spondylosis without Sabas White M.D. Inactive myelopathy Inactive: 07/12/2015 Onset: 05/14/2013 Sciatica Sabas White M.D. Inactive Inactive: 07/12/2015 Onset: 04/12/2015 Chronic fatigue syndrome Mirta Simon MD Inactive Inactive: 07/12/2015 Onset: 04/12/2015 Disturbance in sleep behavior Mirta Simon MD Inactive Inactive: 07/12/2015 Onset: 05/07/2015 Obstructive sleep apnea Prabha Olivas DNP, RN, Inactive syndrome [employer]-BC Inactive: 07/12/2015 Family History Date Family Member(s) Problem(s) Comments General Heart Disease General Diabetes General Lung Cancer Mother DM Mother due to Lung cancer () Mother CA at age 55 Social History Type Date Description Comments Sex Unknown Marital Status 5 children Marital Status Lives With Alone Occupation Unemployed Tobacco Use Start: Unknown Current Cigarette Smoker 5-10 Cigarettes Daily Tobacco Use Start: Unknown 07/21 2 cig per day Smoking Status Reviewed: 02/13/1814 2 cig per day ETOH Use Rarely consumes alcohol Tobacco Use Start: Unknown Patient is a current smoker, 1/2 ppd smokes every day Recreational Drug Use Sporadically uses Marijuana Exercise Type/Frequency Exercises sporadically Allergies, Adverse Reactions, Alerts Description No Known Drug Allergies Medications Medication Date Status Form Strength Qnty SIG Indications Ordering Provider Trazodone HCL 02/13 Active Tablets 50mg 30tab one po at F51.01 s bedtime fernando Zazueta MD insomnia Guaifenesin ER 02/01 Active Tablets ER 1200mg 14tab 1 twice a 12HR s day MD Marbin Benzonatate 02/01 Active Capsules 200mg 30cap 1 by mouth R0 s three Marbin, times a MD day, for cough Dulera 09/14 Active Aerosol 200-5mcg/ 8.800 2 puff J44.9 Act gm twice a Nba pichardo M.D. Nicotrol 06/14 Active Inhaler 10mg 168un use 4-5 F17.210 its times Pachika daily Lucy Ventolin HFA 10/17 Active Aerosol 108(90Bas 8gm 2 puffs by e) mouth four Pachikara mcg/Act times a M.DJo-Ann day as needed Ibuprofen 08/10 Active Tablets 600mg 90tab three M51.16 s times a Pachikara day as , M.D. needed with food Calcium 600+D 05/26 Active Tablets 600-400mg 60tab 1 by mouth -Unit s twice a Jourdan AlfordDJo-Ann Multi-Day 04/11 Active Tablets 30tab 1 by mouth s every day Lucy Arango Acetaminophen 05/25 Active Tablets 500mg 180ta 2 tab 3 M51.16 bs times Pachikara daily Lucy king Fluticasone 04/15 Active Suspension 50mcg/Act 16gm 2 sprays 477.8 [place] each Nba murrell M.D. everyday Vitamin C Active Capsules 500mg 1 by mouth / every day Amoxicillin/Clavu 10/01 Hx Tablets 875-125mg 20tab 1 by mouth J01.90 Claudio lanate Potassium /2017 s twice a Pachikara - day , M.D. 12/17 Dulera 11/07 Hx Aerosol 200-5mcg/ 26.4g 2 puff Act m twice a Pachikara - day , M.D. 12/17 Amoxicillin/Clavu 10/13 Hx Tablets 875-125mg 20tab 1 by mouth J06.9 [place] lanate Potassium /2016 s twice a Pachikara - day , M.D. 06/13 Hydrocodone-Aceta 08/10 Hx Tablets 5-325mg 14tab 1 tab M54.12 Claudio minophen s every 12h Pachikara - as needed , M.D. 06/14 Prednisone 07/24 Hx Tablets 10mg 30tab 5tabx M51.16 s 2days,4 Pachikara - [id number] , M.D. 08/10 [id number] /2017 ,[id number] s,1tabxday . Cyclobenzaprine 07/24 Hx Tablets 10mg 10tab ( Not M51.16 [place] s Taking ) 1 Pachikara - tab hs , M.DJo-Ann 06/14 Ibuprofen 05/29 Hx Tablets 600mg 90tab three s times a Pachika - day with , M.D. 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 02/15 night at bedtime as needed Bupropion HCL ER 11/18 Hx Tablets ER 150mg 30tab once daily F32.9 [place] (XL) 24HR s in the Pachikara - morning , M.D. 02/15 with food /2016 Amoxicillin 08/18 Hx Tablets 500mg 1 tab by mouth - twice a 10/20 day 10 days Symbicort 08/12 Hx Aerosol 160-4.5mc 1unit 2 puff J44.9 g/Act s [facility] Lucy 11/07 Tizanidine HCL 05/25 Hx Tablets 4mg 30tab twice a M51.16 s day as Pachikara - needed , Lucy 06/12 Docusate Sodium 05/25 Hx Capsules 100mg 60cap 2 cap by .16 s mouth at [facility] - bedtime , Lucy 11/18 Chantix Starting 05/25 Hx Tablets 0.5mg X 1tabs as F17.210 [place] 11 & 1 mg directed Pachikara - X 42 , MAshley 06/03 Nicotine 02/10 Hx Gum 4mg 84uni every 4 F17.200 [place] Polacrile ts hours Nba Jacques M.D. 05/25 Amoxicillin/Clavu 05/13 Hx Tablets 875-125mg 20tab 1 by mouth 466.0 [place] lanate s twice a Nba - Lucy pichardo 06/15 Calcium 1000 + D 05/13 Hx Tablets 1000-800m 30tab once daily 466.0 g-Unit s Nba Jacques M.D. 05/13 Multi Complete 05/13 Hx Capsules 30cap once daily 466.0 s Nba Jacques M.D. 06/15 Nicotine 05/13 Hx Gums 4mg 84uni every 4 F17.200 ts hours Nba Jacques M.D. 02/10 Multi Vitamin 05/13 Hx Tablets 30tab once daily [place] leona Jacques M.D. 06/15 Calcium 600-D 05/13 Hx Tablets 600-400mg 30tab once daiy -Unit s Nba Jacques M.D. 04/11 Multi-Day 06/10 Hx Tablets 90tab 1 by mouth 302.72 [place] s every day Nba Jacques M.D. 04/11 Hydrocodone/Aceta 05/16 Hx Tablets 5-325mg 30tab 1 po q4-6 Grecia s hr Sawyer Hair M.D. 07/10 Fexofenadine HCL 04/15 Hx Tablets 180mg 30tab 1 po qd 477.8 Sawyer Esparza M.D. 06/15 Omeprazole 04/[address] 40mg 90cap 1 po qd 535.50 Sawyer Esparza M.D. 05/13 Proair HFA 01/13 Hx Aerosol 108(90Bas 1unit 2 puffs ih J44.9 e) s every 4 Nba - mcg/Act hours Lucy meyer 10/17 needed Nicotine 01/13 Hx Gum 2mg 120un 4 times 305.1 its daily as Nba shabazz M.D. 05/13 Amoxicillin/Potas 07/24 Hx Tablets 875-125mg 20tab 1 po bid 466.0 [place] si Clavulanate s Nba Jacques M.D. 01/13 Ibuprofen 05/27 Hx Tablets 600mg 90tab tid 722.93 leona Jacques M.D. 07/13 Nicotine 02/20 Hx Gum 2mg 120un 4 times 305.1 its daily as Nba shabazz M.D. 01/13 Nicoderm CQ 02/20 Hx Patches 14mg/24HR 30uni once daily 305.1 24HR ts Nba Jacques M.D. 01/13 Proair HFA 02/20 Hx Aerosol 108(90Bas 1unit 2 puffs ih 496 e) mcg/ac s q4h prn Nba Jacques M.D. 01/13 Azithromycin 12/17 Hx Tablets 250mg 6tabs 2 tab 461.9 today and Nba Jacques then 1taLucy sawant 02/20 Ibuprofen Hx Tablets 600mg 90tab tid 722.93 Sawyer Esparza M.D. 02/20 Medrol Dosepak 05/15 Hx Tablets 4mg 1tabs follow Jesus Jo-Ann package Sawyer Pineda M.D. take with food Vimovo 04/[address] 500-20mg 60tab bid 722.93 leona Jacques M.D. Nicorelief 03/07 Hx Gum 2mg 120un qid 305.1 its Nba Jacques M.D. 02/20 Amoxicillin/Clavu 03/07 Hx Tablets 875-125mg 20tab 1 po bid 466.0 [place] lanate leona Jacques M.D. 04/24 Multivital 03/07 Hx Tablets 30tab once daily 466.0 Deborah Sawyer Daniels M.D. 02/20 Nicorette 07/06 Hx Gum 4mg 120un upto 4 305.1 its times Nba - Lucy torres 03/07 Multi Vitamin 07/06 Hx Tablets 30tab 1 po qd 302.72 Sawyer Esparza M.D. 06/10 Cialis 07/06 Hx Tablets 20mg 10tab as 302.72 s estefani Jacques M.D. 03/07 Nicoderm CQ 01/05 Hx Patches 14mg/24HR 30uni once daily 305.1 24HR laurie Jacques M.D. 07/06 Cialis 11/30 Hx Tablets 20mg 10tab as 302.72 leona Jacques M.D. 01/05 Soyhd-Y-Pybo 11/30 Hx Tablets 30tab 1 tab 302.72 s daily Nba Jacques M.D. 01/05 Nicoderm CQ 11/30 Hx Patches 14mg/24HR 30uni once daily 302.72 24HR laurie Jacques M.D. 01/05 Pulmicort Hx Aerosol 180mcg/Ac 1mon 2 puffs Claudio Flexhaler / t twice Nba - Lucy torres 08/12 Combivent Hx Tablets 1tabs 2 puffs 4 Claudio /0000 timesPRN Nba Jacques M.D. 03/06 Hydrocodone/Aceta Hx Tablets 5-500mg 60tab q 12h prn Deborah minophen /0000 s Sawyer Tse M.D. 02/20 Methylprednisolon Hx Tablets 4mg 30tab use as Unknown e /0000 s directed - 04/17 Gabapentin Hx Capsules 100mg 240ca 1 po qhs Unknown /0000 ps to start - and august 17 as tolerated to 2 po qhs then 1 po qam and 2 po hs, gradually up to 3 tid prn pain Naproxen Hx Tablets 500mg 60tab 1 po bid Unknown /0000 s prn - 07/10 Cyclobenzaprine Hx Tablets 10mg 45tab one po tid Unknown HCL /0000 s prn spasm - 07/10 Calcium 1000 + D Hx Tablets 1000-800m 30tab once daily g-Unit leona Jacques M.D. 07/24 Immunizations CPT Code Status Date Vaccine Lot # [id number] Given 02/13/2018 Influenza Virus Vaccine, Quadrivalent, Split, [id number] Preservative Free 52751 Given 01/19/2015 Influenza Virus Vaccine, Quadrivalent, Split, [id number] Preservative Free 80486 Given 01/13/2013 Flu Vaccine Split Virus Preservative Free For [id number] Indiv 3Yr Older [id number] Given 12/18/2011 Fluzone Vaccine [id number] Given 03/07/2011 Pneumonia Vaccine [id number] 43546 Given 03/07/2011 Influenza Virus 3Yrs & Over [id number] Vital Signs Date Vital Result Comment 02/13/2018 11:40am Height 72 inches 6'0" Weight 138.38 lb Heart Rate 88 /min BP Systolic 100 mmHg BP Diastolic 66 mmHg Body Temperature 97.8 F O2 % BldC Oximetry 97 % BMI (Body Mass Index) 18.8 kg/m2 02/01/2018 10:04am Height 72 inches 6'0" Weight 129.38 lb Heart Rate 82 /min BP Systolic 104 mmHg BP Diastolic 69 mmHg Body Temperature 98.3 F O2 % BldC Oximetry 97 % BMI (Body Mass Index) 17.5 kg/m2 12/17/2017 7:51am Height 72 inches 6'0" Weight 136.00 lb Heart Rate 71 /min BP Systolic Sitting 110 mmHg BP Diastolic Sitting 70 mmHg Body Temperature 96.7 F O2 % BldC Oximetry 98 % BMI (Body Mass Index) 18.4 kg/m2 10/01/2017 11:13am Height 72 inches 6'0" Weight 134.00 lb Heart Rate 79 /min BP Systolic 100 mmHg BP Diastolic 70 mmHg O2 % BldC Oximetry 99 % BMI (Body Mass Index) 18.2 kg/m2 09/14/2017 8:49am Height 72 inches 6'0" Weight 145.00 lb Heart Rate 83 /min BP Systolic Sitting 120 mmHg BP Diastolic Sitting 80 mmHg Body Temperature 97.1 F O2 % BldC Oximetry 98 % BMI (Body Mass Index) 19.7 kg/m2 06/14/2017 8:44am Height 72 inches 6'0" Weight 147.00 lb Heart Rate 83 /min BP Systolic 106 mmHg BP Diastolic 60 mmHg Body Temperature 98.6 F Pain Level 97 BMI (Body Mass Index) 19.9 kg/m2 10/13/2016 7:55am Weight 132.25 lb Heart Rate 97 /min BP Systolic Sitting 118 mmHg BP Diastolic Sitting 84 mmHg Body Temperature 97.6 F O2 % BldC Oximetry 98 % 08/14/2016 1:30pm Height 72 inches 6'0" Weight 149.00 lb Heart Rate 64 /min BP Systolic Sitting 122 mmHg BP Diastolic Sitting 70 mmHg Pain Level 8 BMI (Body Mass Index) 20.2 kg/m2 08/10/2016 8:47am Height 72 inches 6'0" Weight 149.00 lb Heart Rate 90 /min BP Systolic Sitting 110 mmHg BP Diastolic Sitting 92 mmHg Body Temperature 97.9 F O2 % BldC Oximetry 97 % BMI (Body Mass Index) 20.2 kg/m2 07/31/2016 1:01pm Height 72 inches 6'0" Weight 150.00 lb Heart Rate 72 /min BP Systolic Sitting 122 mmHg BP Diastolic Sitting 78 mmHg Pain Level 7 BMI (Body Mass Index) 20.3 kg/m2 07/24/2016 3:57pm Weight 149.25 lb Heart Rate 78 /min BP Systolic Sitting 118 mmHg BP Diastolic Sitting 86 mmHg Body Temperature 98.1 F O2 % BldC Oximetry 98 % 05/24/2016 7:43am Weight 159.50 lb Heart Rate 81 /min BP Systolic Sitting 120 mmHg BP Diastolic Sitting 88 mmHg Body Temperature 97.8 F O2 % BldC Oximetry 98 % 02/16/2016 9:43am Weight 158.00 lb Heart Rate 82 /min BP Systolic Sitting 128 mmHg BP Diastolic Sitting 80 mmHg Respiratory Rate 15 /min Body Temperature 98.1 F O2 % BldC Oximetry 97 % 12/08/2015 10:22am Weight 152.00 lb Heart Rate 86 /min BP Systolic Sitting 115 mmHg BP Diastolic Sitting 75 mmHg Respiratory Rate 15 /min Body Temperature 97.3 F O2 % BldC Oximetry 98 % 11/19/2015 9:53am Weight 145.00 lb Heart Rate 104 /min BP Systolic Sitting 102 mmHg BP Diastolic Sitting 82 mmHg O2 % BldC Oximetry 98 % 10/22/2015 8:29am Height 72 inches 6'0" Weight 140.00 lb Heart Rate 87 /min BP Systolic Sitting 128 mmHg BP Diastolic Sitting 82 mmHg Respiratory Rate 16 /min O2 % BldC Oximetry 98 % BMI (Body Mass Index) 19.0 kg/m2 08/20/2015 8:44am Height 72 inches 6'0" Weight 135.00 lb Heart Rate 87 /min BP Systolic 130 mmHg BP Diastolic 88 mmHg Respiratory Rate 14 /min O2 % BldC Oximetry 98 % BMI (Body Mass Index) 18.3 kg/m2 08/13/2015 7:53am Weight 135.50 lb Heart Rate 94 /min BP Systolic Sitting 133 mmHg BP Diastolic Sitting 86 mmHg Body Temperature 98.5 F O2 % BldC Oximetry 99 % 07/06/2015 11:12am Height 72 inches 6'0" Weight 145.00 lb Heart Rate 89 /min BP Systolic 100 mmHg BP Diastolic 72 mmHg Respiratory Rate 14 /min O2 % BldC Oximetry 98 % BMI (Body Mass Index) 19.7 kg/m2 06/01/2015 4:14pm Height 72 inches 6'0" Weight 145.00 lb Heart Rate 78 /min BP Systolic Sitting 110 mmHg BP Diastolic Sitting 80 mmHg Body Temperature 98.7 F O2 % BldC Oximetry 98 % BMI (Body Mass Index) 19.7 kg/m2 05/25/2015 1:57pm Height 72 inches 6'0" Weight 142.00 lb Heart Rate 105 /min BP Systolic Sitting 136 mmHg BP Diastolic Sitting 84 mmHg Body Temperature 97.7 F Pain Level 8 8/10 O2 % BldC Oximetry 97 % BMI (Body Mass Index) 19.3 kg/m2 05/07/2015 8:32am Height 72 inches 6'0" Weight 156.00 lb Heart Rate 72 /min BP Systolic Sitting 120 mmHg BP Diastolic Sitting 76 mmHg Respiratory Rate 14 /min O2 % BldC Oximetry 97 % BMI (Body Mass Index) 21.2 kg/m2 04/12/2015 10:00am Height 72 inches 6'0" Weight 156.00 lb Heart Rate 91 /min BP Systolic 124 mmHg BP Diastolic 84 mmHg Respiratory Rate 14 /min Body Temperature 98.6 F O2 % BldC Oximetry 97 % BMI (Body Mass Index) 21.2 kg/m2 Neck Circumference in inches 14 02/10/2015 9:51am Weight 153.00 lb Heart Rate 81 /min BP Systolic Sitting 115 mmHg BP Diastolic Sitting 78 mmHg Body Temperature 98.3 F 01/19/2015 7:57am Height 72 inches 6'0" Weight 153.12 lb Heart Rate 78 /min BP Systolic Sitting 118 mmHg BP Diastolic Sitting 82 mmHg Body Temperature 97.2 F O2 % BldC Oximetry 98 % BMI (Body Mass Index) 20.8 kg/m2 07/14/2014 8:16am Height 72 inches 6'0" Weight 148.38 lb Heart Rate 79 /min BP Systolic Sitting 104 mmHg BP Diastolic Sitting 60 mmHg Body Temperature 97.9 F O2 % BldC Oximetry 98 % BMI (Body Mass Index) 20.1 kg/m2 06/15/2014 11:13am Weight 146.00 lb Heart Rate 76 /min BP Systolic Sitting 110 mmHg BP Diastolic Sitting 80 mmHg Body Temperature 97.7 F O2 % BldC Oximetry 98 % 05/13/2014 10:28am Weight 148.50 lb Heart Rate 83 /min BP Systolic Sitting 114 mmHg BP Diastolic Sitting 74 mmHg Body Temperature 97.6 F O2 % BldC Oximetry 96 % 07/31/2013 4:44pm Weight 141.00 lb Heart Rate 78 /min BP Systolic Sitting 122 mmHg BP Diastolic Sitting 80 mmHg 07/10/2013 4:22pm Height 70.5 inches 5'10.50" Weight 135.00 lb Heart Rate 72 /min BP Systolic Sitting 104 mmHg BP Diastolic Sitting 78 mmHg Body Temperature 97.3 F O2 % BldC Oximetry 99 % BMI (Body Mass Index) 19.1 kg/m2 05/16/2013 11:01am Weight 142.50 lb Heart Rate 70 /min BP Systolic Sitting 118 mmHg BP Diastolic Sitting 70 mmHg 04/15/2013 2:44pm Weight 147.00 lb Heart Rate 80 /min BP Systolic Sitting 130 mmHg BP Diastolic Sitting 80 mmHg Body Temperature 97.5 F 01/13/2013 8:50am Weight 146.00 lb Heart Rate 63 /min BP Systolic Sitting 110 mmHg BP Diastolic Sitting 82 mmHg 07/24/2012 11:00am Weight 147.50 lb Heart Rate 72 /min BP Systolic Sitting 104 mmHg BP Diastolic Sitting 76 mmHg Body Temperature 97.3 F O2 % BldC Oximetry 96 % 05/27/2012 8:17am Height 71.5 inches 5'11.50" Weight 142.00 lb Heart Rate 68 /min BP Systolic Sitting 108 mmHg BP Diastolic Sitting 64 mmHg BMI (Body Mass Index) 19.5 kg/m2 03/06/2012 9:40am Height 71.75 inches 5'11.75" Weight 142.00 lb Heart Rate 76 /min BP Systolic Sitting 102 mmHg BP Diastolic Sitting 64 mmHg O2 % BldC Oximetry 96 % BMI (Body Mass Index) 19.4 kg/m2 02/21/2012 2:26pm Height 71.75 inches 5'11.75" Weight 141.00 lb Heart Rate 74 /min BP Systolic Sitting 98 mmHg BP Diastolic Sitting 66 mmHg BMI (Body Mass Index) 19.3 kg/m2 02/21/2012 2:10pm Height 71.75 inches 5'11.75" 12/18/2011 9:16am Height 71.75 inches 5'11.75" Weight 139.00 lb Heart Rate 68 /min BP Systolic Sitting 100 mmHg BP Diastolic Sitting 76 mmHg BMI (Body Mass Index) 19.0 kg/m2 11/13/2011 10:19am Height 71.75 inches 5'11.75" Weight 133.00 lb Heart Rate 76 /min BP Systolic Sitting 108 mmHg BP Diastolic Sitting 82 mmHg BMI (Body Mass Index) 18.2 kg/m2 09/11/2011 8:44am Height 71.75 inches 5'11.75" Weight 135.00 lb Heart Rate 80 /min BP Systolic Sitting 110 mmHg BP Diastolic Sitting 72 mmHg BMI (Body Mass Index) 18.4 kg/m2 07/10/2011 1:51pm Height 71.75 inches 5'11.75" Weight 144.00 lb Heart Rate 72 /min BP Systolic Sitting 102 mmHg l BP Diastolic Sitting 60 mmHg l BMI (Body Mass Index) 19.7 kg/m2 06/07/2011 11:03am Height 71.75 inches 5'11.75" Weight 142.00 lb Heart Rate 68 /min BP Systolic Sitting 114 mmHg l BP Diastolic Sitting 72 mmHg l BMI (Body Mass Index) 19.4 kg/m2 04/24/2011 9:27am Height 71.75 inches 5'11.75" Weight 134.00 lb Heart Rate 72 /min BP Systolic Sitting 102 mmHg L BP Diastolic Sitting 68 mmHg L BMI (Body Mass Index) 18.3 kg/m2 03/07/2011 9:12am Height 71.75 inches 5'11.75" Weight 141.00 lb Heart Rate 68 /min BP Systolic Sitting 115 mmHg BP Diastolic Sitting 80 mmHg BMI (Body Mass Index) 19.3 kg/m2 07/06/2010 10:10am Weight 204.00 lb Heart Rate 86 /min BP Systolic Sitting 98 mmHg BP Diastolic Sitting 60 mmHg 01/05/2010 9:11am Weight 146.00 lb Heart Rate 76 /min BP Systolic Sitting 104 mmHg BP Diastolic Sitting 78 mmHg 11/30/2009 8:58am Height 71 inches 5'11" Weight 145.00 lb Heart Rate 62 /min BP Systolic Sitting 90 mmHg BP Diastolic Sitting 66 mmHg BMI (Body Mass Index) 20.2 kg/m2 11/02/2008 12:58pm Height 71 inches 5'11" Weight 141.00 lb Heart Rate 72 /min BP Systolic Sitting 100 mmHg BP Diastolic Sitting 68 mmHg BMI (Body Mass Index) 19.7 kg/m2 Results Test Date Facility Test Result H/L Range Note Laboratory test 02/01/2018 [facility] TSH 1.53 mcIU/mL N 0.34- 5.[address] ([place] [address] Stim Horm) [phone] CBC Auto Diff 02/01/2018 [facility] White Blood 8.2 10^3/uL N 3.5-10.[address] [place] [address] [phone] Red Blood Count 4.61 10^6/uL N 4.00-5.40 Hemoglobin 14.6 g/dL N 14.0-18.0 Hematocrit 44 % N 42-52 Mean Corpuscular Volume 94 fL N 80-94 Mean Corpuscular Hemoglobin 32 pg High 27-31 Mean Corpuscular HGB Conc 34 g/dL N 31-36 Red Cell Distribution Width 13 % N 10.5-15 Platelet Count 217 10^3/uL N 150-450 Mean Platelet Volume 8.3 um3 N 7.4-10.4 Abs Neutrophils 5.0 10^3/uL N 1.5-7.7 Abs Lymphocytes 2.7 10^3/uL N 1.0-4.8 Abs Monocytes 0.5 10^3/uL N 0-0.8 Abs Eosinophils 0 10^3/uL N 0-0.6 Abs Basophils 0 10^3/uL N 0-0.2 Abs Nucleated RBC 0 10^3/uL Granulocyte % 60.4 % N 38-83 Lymphocyte % 32.9 % N 25-47 Monocyte % 5.8 % N 0-7 Eosinophil % 0.5 % N 0-6 Basophil % 0.4 % N 0-2 Nucleated Red Blood Cells % 0.1 Comp Metabolic Panel 02/01/2018 [facility] Sodium 141 mmol/L N 135-[address] [place] [address] [phone] Potassium 4.9 mmol/L N 3.5-5.0 Chloride 105 mmol/L N 101-111 Co2 Carbon Dioxide 31 mmol/L N 22-32 Anion Gap 5 mmol/L N 2-11 Glucose 119 mg/dL High 70-100 Blood Urea Nitrogen 11 mg/dL N 6-24 Creatinine 0.85 mg/dL N 0.67-1.17 BUN/Creatinine Ratio 12.9 N 8-20 Calcium 9.6 mg/dL N 8.6-10.3 Total Protein 6.5 g/dL N 6.4-8.9 Albumin 4.1 g/dL N 3.2-5.2 Globulin 2.4 g/dL N 2-4 Albumin/Globulin Ratio 1.7 N 1-3 Total Bilirubin 0.40 mg/dL N 0.2-1.0 Alkaline Phosphatase 59 U/L N 34-104 Alt 10 U/L N 7-52 Ast 13 U/L N 13-39 Egfr Non- 95.8 >60 Egfr 115.9 >60 1 Lipid Profile 09/14/2017 [facility] Triglycerides 51 mg/dL 2 (Trig/Chol/HDL) [address] [place] [address] [phone] Cholesterol 169 mg/dL 3 HDL Cholesterol 40.7 mg/dL 4 LDL Cholesterol 118 mg/dL 5 Comp Metabolic Panel 09/14/2017 [facility] Sodium 141 mmol/L N 139-[address] [place] [address] [phone] Potassium 4.3 mmol/L N 3.5-5.0 Chloride 105 mmol/L N 101-111 Co2 Carbon Dioxide 31 mmol/L N 22-32 Anion Gap 5 mmol/L N 2-11 Glucose 101 mg/dL High 70-100 Blood Urea Nitrogen 10 mg/dL N 6-24 Creatinine 0.91 mg/dL N 0.67-1.17 BUN/Creatinine Ratio 11.0 N 8-20 Calcium 9.1 mg/dL N 8.6-10.3 Total Protein 6.2 g/dL Low 6.4-8.9 Albumin 4.0 g/dL N 3.2-5.2 Globulin 2.2 g/dL N 2-4 Albumin/Globulin Ratio 1.8 N 1-3 Total Bilirubin 0.60 mg/dL N 0.2-1.0 Alkaline Phosphatase 53 U/L N 34-104 Alt 10 U/L N 7-52 Ast 14 U/L N 13-39 Egfr Non- 88.6 >60 Egfr 113.9 >60 6 Laboratory test 02/22/2017 [facility] PSA Screening 1.220 0- 4.[address] ng/[place] [address] [phone] Laboratory test 12/02/2015 [facility] TSH (Thyroid 1.78 N 0.34 -5.[address] Stim Horm) mcIU/[place] [address] [phone] Vitamin B12 And 12/02/2015 [facility] Vitamin B12 359 pg/mL N 180-914 8 Folate Serum [address] [place] [address] [phone] Folic Acid (Folate) > 20.00 ng/mL N >3.99 Comp Metabolic Panel 08/26/2015 [facility] Sodium 137 mmol/L N 133-[address] [place] [address] [phone] Potassium 4.3 mmol/L N 3.5-5.0 Chloride 105 mmol/L N 101-111 Co2 Carbon Dioxide 28 mmol/L N 22-32 Anion Gap 4 mmol/L N 2-11 Glucose 96 mg/dL N 70-100 Blood Urea Nitrogen 15 mg/dL N 6-24 Creatinine 0.88 mg/dL N 0.67-1.17 BUN/Creatinine Ratio 17.0 N 8-20 Calcium 9.0 mg/dL N 8.6-10.3 Total Protein 6.5 g/dL N 6.4-8.9 Albumin 3.9 g/dL N 3.2-5.2 Globulin 2.6 g/dL N 2-4 Albumin/Globulin Ratio 1.5 N 1-3 Total Bilirubin 0.70 mg/dL N 0.2-1.0 Alkaline Phosphatase 55 U/L N 34-104 Alt 28 U/L N 7-52 Ast 23 U/L N 13-39 Egfr Non- 92.8 N >60 Egfr 119.4 N >60 9 Lipid Profile 08/26/2015 [facility] Triglycerides 61 mg/dL N 10 (Trig/Chol/HDL) [address] [place] [address] [phone] Cholesterol 170 mg/dL N 11 HDL Cholesterol 39.7 mg/dL N 12 LDL Cholesterol 118 mg/dL N 13 Laboratory test 08/26/2015 [facility] PSA Screening 0.582 N 0- 4.000 [address] ng/[place] [address] [phone] Laboratory test 02/17/2015 [facility] Methylmalonic 0.19 N <= 0.40 [address] Acid Mma nmol/[place] [address] [phone] CBC Auto Diff 01/19/2015 [facility] White Blood Count 6.0 N 4.8-10.[address] 10^3/[place] [address] [phone] Red Blood Count 4.99 10^6/uL N 4.0-5.4 Hemoglobin 15.5 g/dL N 14.0-18.0 Hematocrit 47 % N 42-52 Mean Corpuscular Volume 94 fL N 80-94 Mean Corpuscular Hemoglobin 31 pg N 27-31 Mean Corpuscular HGB Conc 33 g/dL N 31-36 Red Cell Distribution Width 13 % N 10.5-15 Platelet Count 161 10^3/uL N 150-450 Mean Platelet Volume 8 um3 N 7.4-10.4 Abs Neutrophils 3.4 10^3/uL N 1.5-7.7 Abs Lymphocytes 2.0 10^3/uL N 1.0-4.8 Abs Monocytes 0.4 10^3/uL N 0-0.8 Abs Eosinophils 0 10^3/uL N 0-0.6 Abs Basophils 0.1 10^3/uL N 0-0.2 Abs Nucleated RBC 0 10^3/uL N Granulocyte % 57.5 % N 38-83 Lymphocyte % 34.1 % N 25-47 Monocyte % 6.7 % N 1-9 Eosinophil % 0.8 % N 0-6 Basophil % 0.9 % N 0-2 Nucleated Red Blood Cells % 0.1 N Laboratory test 01/19/2015 [facility] TSH (Thyroid 1.44 ?IU/mL N 0.34-5.[address] Stim [place]) [place] [address] [phone] Vitamin B12 And 01/19/2015 [facility] Vitamin B12 281 pg/mL N 180-914 16 Folate Serum [address] [place] [address] [phone] Folic Acid (Folate) 12.17 ng/mL N >3.99 Comp Metabolic Panel 01/19/2015 [facility] Sodium 138 mmol/L N 133-145 [address] [place] [address] [phone] Potassium 4.4 mmol/L N 3.5-5.0 Chloride 105 mmol/L N 101-111 Co2 Carbon Dioxide 29 mmol/L N 22-32 Anion Gap 4 mmol/L N 2-11 Glucose 85 mg/dL N 70-100 Blood Urea Nitrogen 10 mg/dL N 6-24 Creatinine 0.89 mg/dL N 0.67-1.17 BUN/Creatinine Ratio 11.2 N 8-20 Calcium 9.2 mg/dL N 8.6-10.3 Total Protein 6.7 g/dL N 6.4-8.9 Albumin 4.4 g/dL N 3.2-5.2 Globulin 2.3 g/dL N 2-4 Albumin/Globulin Ratio 1.9 N 1-3 Total Bilirubin 0.60 mg/dL N 0.2-1.0 Alkaline Phosphatase 57 U/L N 34-104 Alt 8 U/L N 7-52 Ast 10 U/L Low 13-39 Egfr Non- 92.0 N >60 Egfr 118.3 N >60 17 Laboratory test 12/10/2014 [facility] PSA Diagnostic 0.689 N 0 -4.[address] ng/[place] [address] [phone] Comp Metabolic 07/10/2014 [facility] Sodium 136 mmol/L N 133- 145 [address] [place] [address] [phone] Potassium 4.3 mmol/L N 3.5-5.0 Chloride 103 mmol/L N 101-111 Co2 Carbon Dioxide 28 mmol/L N 22-32 Anion Gap 5 mmol/L N 2-11 Glucose 99 mg/dL N 70-100 Blood Urea Nitrogen 12 mg/dL N 6-24 Creatinine 0.97 mg/dL N 0.67-1.17 BUN/Creatinine Ratio 12.4 N 8-20 Calcium 9.5 mg/dL N 8.6-10.3 Total Protein 7.0 g/dL N 6.4-8.9 Albumin 4.6 g/dL N 3.2-5.2 Globulin 2.4 g/dL N 2-4 Albumin/Globulin Ratio 1.9 N 1-3 Total Bilirubin 1.30 mg/dL High 0.2-1.0 Alkaline Phosphatase 58 U/L N 34-104 Alt 16 U/L N 7-52 Ast 15 U/L N 13-39 Egfr Non- 83.3 N >60 Egfr 107.2 N >60 19 Lipid Profile 07/10/2014 [facility] Triglycerides 91 mg/dL N 20 (Trig/Chol/HDL) [address] [place] [address] [phone] Cholesterol 188 mg/dL N 21 HDL Cholesterol 36.4 mg/dL N 22 LDL Cholesterol 133 mg/dL N 23 Laboratory test 07/10/2014 [facility] PSA Screening 0.678 ng/mL N 0-4.000 24 finding [address] [place] [address] [phone] Laboratory test 12/18/2013 [facility] PSA Diagnostic 0.513 ng/ mL N 0-4.0 25 finding [address] [place] [address] [phone] Stool For Blood 06/06/2013 [facility] Stool Occult (SEE NOTE) [address] [facility] [place] [address] [phone] Urinalysis 06/06/2013 [facility] Urine Color Yellow [address] [place] [address] [phone] Urine Appearance Clear Urine Specific [place] 1.010 1.010-1.030 Urine Esterase Negative Negative Urine Nitrate Negative Negative Urine Urobilinogen Negative E.U./dL Negative Urine Protein Negative mg/dL Negative Urine pH 5.5 5-9 Urine Blood Negative Negative Urine Ketones 1+ mg/dL Abnormal Negative Urine Bilirubin Negative Negative Urine Glucose Negative mg/dL Negative CBC Auto Diff 06/06/2013 [facility] White Blood 9.9 10^3/uL 4.8-10.[address] [place] [address] [phone] Red Blood Count 4.83 10^6/uL 4.0-5.4 Hemoglobin 15.1 g/dL 14.0-18.0 Hematocrit 45 % 42-52 Mean Corpuscular Volume 94 fL 80-94 Mean Corpuscular Hemoglobin 31 pg 27-31 Mean Corpuscular HGB Conc 33 g/dL 31-36 Red Cell Distribution Width 14 % 10.5-15 Platelet Count 193 10^3/uL 150-450 Mean Platelet Volume 9 um3 7.4-10.4 Abs Neutrophils 6.0 10^3/uL 1.5-7.7 Abs Lymphocytes 3.3 10^3/uL 1.0-4.8 Abs Monocytes 0.5 10^3/uL 0-0.8 Abs Eosinophils 0.1 10^3/uL 0-0.6 Abs Basophils 0.1 10^3/uL 0-0.2 Abs Nucleated RBC 0.01 10^3/uL Granulocyte % 60.6 % 38-83 Lymphocyte % 33.1 % 25-47 Monocyte % 4.9 % 1-9 Eosinophil % 0.5 % 0-6 Basophil % 0.9 % 0-2 Nucleated Red Blood Cells % 0.1 Comp Metabolic Panel 06/06/2013 [facility] Sodium 137 mmol/L 133-145 [address] [place] [address] [phone] Potassium 4.3 mmol/L 3.7-5.6 Chloride 104 mmol/L 101-111 Co2 Carbon Dioxide 29 mmol/L 22-32 Anion Gap 4 mmol/L 2-11 Glucose 92 mg/dL 70-100 Blood Urea Nitrogen 14 mg/dL 6-24 Creatinine 0.84 mg/dL 0.67-1.17 BUN/Creatinine Ratio 16.7 8-20 Calcium 9.6 mg/dL 8.6-10.3 Total Protein 6.8 g/dL 6.4-8.9 Albumin 4.7 g/dL 3.2-5.2 Globulin 2.1 g/dL 2-4 Albumin/Globulin Ratio 2.2 1-3 Total Bilirubin 0.70 mg/dL 0.2-1.0 Alkaline Phosphatase 63 U/L 34-104 Alt 17 U/L 7-52 Ast 18 U/L 13-39 Egfr Non- 98.8 >60 Egfr 127.1 >60 27 Laboratory test 06/06/2013 [facility] TSH (Thyroid 3.74 IU/mL 0.34-5.[address] [place] [address] Horm) [phone] Urinalysis 05/11/2013 [facility] Urine Color Yellow [address] [place] [address] [phone] Urine Appearance Clear Urine Specific [place] 1.003 Low 1.010-1.030 Urine Esterase Negative Negative Urine Nitrate Negative Negative Urine Urobilinogen Negative E.U./dL Negative Urine Protein Negative mg/dL Negative Urine pH 6.0 5-9 Urine Blood Negative Negative Urine Ketones Negative mg/dL Negative Urine Bilirubin Negative Negative Urine Glucose Negative mg/dL Negative Laboratory test 01/13/2013 [facility] PSA Screening 0.6 ng/mL 0-4.0 28 finding [address] [place] [address] [phone] Lipid Profile 01/13/2013 [facility] Triglycerides 62 mg/dL 40 -200 (Trig/Chol/HDL) [address] [place] [address] [phone] Cholesterol 179 mg/dL Less than 200 HDL Cholesterol 34 mg/dL Low 40-60 29 Cholesterol/HDL Ratio 5.3 Average High 1-4.44 LDL Cholesterol 132.6 High Less Than 100 30 Comp Metabolic Panel 01/13/2013 [facility] Sodium 141 mmol/L 133-145 [address] [place] [address] [phone] Potassium 4.1 mmol/L 3.5-5.0 Chloride 109 mmol/L 101-111 Co2 Carbon Dioxide 29.0 mmol/L 22-32 Anion Gap 3.0 mmol/L 2-11 Glucose 90 mg/dL 70-100 Blood Urea Nitrogen 11 mg/dL 6-24 Creatinine 0.90 mg/dL 0.50-1.40 BUN/Creatinine Ratio 12.2 8-20 Calcium 9.3 mg/dL 8.1-9.9 Total Protein 6.0 g/dL Low 6.2-8.1 Albumin 4.1 g/dL 3.6-5.4 Globulin 1.9 g/dL Low 2-4 Albumin/Globulin Ratio 2.2 1-3 Total Bilirubin 0.6 mg/dL 0.4-1.5 Alkaline Phosphatase 49 U/L 30-110 Alt 10 U/L Low 14-54 Ast 12 U/L 12-42 Egfr Non- 91.7 >60 Egfr 117.9 >60 31 Comp Metabolic Panel 12/18/2011 [facility] Sodium 139 mmol/L 135-145 [address] [place] [address] [phone] Potassium 4.6 mmol/L 3.5-5.0 Chloride 103 mmol/L 101-111 Co2 (Carbon Dioxide) 33.0 mmol/L High 22-32 Anion Gap 3.0 mmol/L 2-11 32 Glucose 96 mg/dL 70-100 BUN 6 mg/dL 6-24 Creatinine 0.9 mg/dL 0.50-1.40 One Over Creatinine 1.11 BUN/Creatinine Ratio 6.7 Low 8-20 Calcium 9.5 mg/dL 8.1-9.9 Total Protein 6.4 GM/DL 6.2-8.1 Albumin 4.2 GM/DL 3.6-5.4 Globulin 2.2 GM/DL 2-4 Albumin/Globulin Ratio 1.9 1-3 Bilirubin Total 0.6 mg/dL 0.4-1.5 33 Alkaline Phosphatase 52 U/L 39-117 Alt (SGPT) 19 U/L 17-63 Ast (Sgot) 16 U/L 12-42 eGFR Non- 92.1 > 60 eGFR 118.4 > 60 34 Lipid Profile 12/18/2011 [facility] Triglyceride 100 mg/dL 40 -200 (Trig/Chol/HDL) [address] [place] [address] [phone] Cholesterol 166 mg/dL Less Than 200 35 High Density Lipoprotein 38 mg/dL Low 40-60 36 Cholesterol/HDL Ratio 4.37 AVERAGE 1-4.97 Low Density Lipoprotein 108 mg/dL High Less Than 100 37 THC 11/13/2011 [facility] Urine THC Presumptive Cutoff: 38 Confirmation,Urine [address] Screen Posi <SEE 20 [place] [address] NOTE> [phone] THC Carboxylic Acid By GC/MS >500 ng/mL Cutoff: 3 Urine THC Interpretation Positive. () 39 Drug Abuse 11/13/2011 [facility] Urine Ampetamines Negative ng/ mL () 40 [address] [place], [place] [id number] [phone] Urine Barbiturates Negative ng/mL () 41 Urine Benzodiazepines Negative ng/mL () 42 Urine Cocaine Negative ng/mL () 43 Urine Methadone Negative ng/mL () 44 Urine Opiates Negative ng/mL () 45 Urine Phencyclidine Negative ng/mL Cutoff: 25 Urine Propoxyphene Negative ng/mL () 46 Urine Tetrahydrocannabinol Presumptive Posi <SEE NOTE> ng/mL Cutoff: 20 47 Urine Opiates Screen Negative () 48 Urine Codeine By GC/MS Negative ng/mL () 49 Urine Hydrocodone By GC/MS Negative ng/mL () 50 Urine Hydromophone By GC/MS Negative ng/mL () 51 Urine Morphine By GC/MS Negative ng/mL () 52 Urine Oxycodone By GC/MS Negative ng/mL () 53 Urine Opiates Interpretation Negative. () 54 CBC No Diff 03/02/2011 [facility] White Blood Count 6.9 CUMM 4.8-10.8 [address] [place] [address] [phone] Red Cell Count 4.99 CUMM 4.6-6.2 Hemoglobin 16.0 g/dL 14.0-18.0 Hematocrit 46 % 42-52 Mean Corpuscular Volume 93 um3 80-94 Mean Corpuscular Hemoglob 32 pg High 27-31 Mean Corpuscular HGB Cone 35 g/dL 32-36 Redcell Distribution WDTH 13 % 10.5-15 Platelet Count 179 CUMM 150-450 Mean Platelet Volume 8.1 um3 7.4-10.4 Comp Metabolic Panel 03/02/2011 [facility] Sodium 132 mmol/L Low 135-145 [address] [place] [address] [phone] Potassium 3.9 mmol/L 3.5-5.0 Chloride 103 mmol/L 101-111 Co2 (Carbon Dioxide) 23.0 mmol/L 22-32 Anion Gap 6.0 mmol/L 2-11 55 Glucose 96 mg/dL 70-100 BUN 14 mg/dL 6-24 Creatinine 1.0 mg/dL 0.50-1.40 One Over Creatinine 1.00 BUN/Creatinine Ratio 14.0 8-20 Calcium 9.1 mg/dL 8.1-9.9 Total Protein 6.6 GM/DL 6.2-8.1 Albumin 4.2 GM/DL 3.6-5.4 Globulin 2.4 GM/DL 2-4 Albumin/Globulin Ratio 1.8 1-3 Bilirubin Total 1.8 mg/dL High 0.4-1.5 56 Alkaline Phosphatase 61 U/L 39-117 Alt (SGPT) 12 U/L Low 17-63 Ast (Sgot) 15 U/L 12-42 eGFR Non- 81.6 > 60 eGFR 104.9 > 60 57 Laboratory test 03/02/2011 [facility] Troponin-I 0 NG/ML 0- 0.06 58 finding [address] [place] [address] [phone] Lipid Profile 07/06/2010 [facility] Triglyceride 54 mg/dL 40- 200 (Trig/Chol/HDL) [address] [place] [address] [phone] Cholesterol 204 mg/dL High Less Than 200 59 High Density Lipoprotein 39 mg/dL Low 40-60 60 Cholesterol/HDL Ratio 5.23 AVERAGE High 1-4.97 Low Density Lipoprotein 154 mg/dL High Less Than 100 61 Laboratory test 01/05/2010 [facility] Testosterone 386.8 [phone] Total ng/[place] [address] [phone] Comp Metabolic 01/05/2010 [facility] Sodium 141 mmol/L 135- [address] [place] [address] [phone] Potassium 4.1 mmol/L 3.5-5.0 Chloride 105 mmol/L 101-111 Co2 (Carbon Dioxide) 31.0 mmol/L 22-32 Anion Gap 5.0 mmol/L 2-11 62 Glucose 87 mg/dL 70-100 63 BUN 10 mg/dL 6-24 Creatinine 0.80 mg/dL 0.50-1.40 One Over Creatinine 1.20 BUN/Creatinine Ratio 12.5 8-20 Calcium 9.2 mg/dL 8.1-9.9 Total Protein 6.6 GM/DL 6.2-8.1 Albumin 4.4 GM/DL 3.6-5.4 Globulin 2.2 GM/DL 2-4 Albumin/Globulin Ratio 2.0 1-3 Bilirubin Total 0.9 mg/dL 0.4-1.5 64 Alkaline Phosphatase 59 U/L 39-117 Alt (SGPT) 14 U/L Low 17-63 Ast (Sgot) 14 U/L 12-42 eGFR Non- 113.2 > 60 eGFR 137.0 > 60 65 Laboratory test 01/05/2010 [facility] PSA Screening 0.66 NG/ML 0-[address] [place] [address] [phone] Lipid Profile 01/05/2010 [facility] Triglyceride 38 mg/dL Low 40-200 (Trig/Chol/HDL) [address] [place] [address] [phone] Cholesterol 196 mg/dL Less Than 200 66 High Density Lipoprotein 39 mg/dL Low 40-60 67 Cholesterol/HDL Ratio 5.03 AVERAGE High 1-4.97 Low Density Lipoprotein 149 mg/dL High Less Than 100 68 Laboratory test 01/05/2010 [facility] Prolactin 3.80 NG/ML 1.0-20.0 finding [address] [place] [address] [phone] 1 Because ethnic data is not always readily available, this report includes an eGFR for both -Americans and non- Americans. The National Kidney Disease Education Program (NKDEP) does not endorse the use of the MDRD equation for patients that are not between the ages of 18 and 70, are , have extremes of body size, muscle mass, or nutritional status, or are non- or non-. According to the National Kidney Foundation, irrespective of diagnosis, the stage of the disease is based on the level of kidney function: Stage Description GFR(mL/min/1.73 m(2)) 1 Kidney damage with normal or decreased GFR 90 2 Kidney damage with mild decrease in GFR 60-89 3 Moderate decrease in GFR 30-59 4 Severe decrease in GFR 15-29 5 Kidney failure <15 (or dialysis) 2 Desirable: <150 Borderline High: 150-199 High: 200-499 Very High: >500 3 Desirable: <200 Borderline High: 200-239 High: >239 4 Low: <40 Desirable: 40-60 High: >60 5 Desirable: <100 Near Optimal: 100-129 Borderline High: 130-159 High: 160-189 Very High: >189 6 Because ethnic data is not always readily available, this report includes an eGFR for both -Americans and non- Americans. The National Kidney Disease Education Program (NKDEP) does not endorse the use of the MDRD equation for patients that are not between the ages of 18 and 70, are , have extremes of body size, muscle mass, or nutritional status, or are non- or non-. According to the National Kidney Foundation, irrespective of diagnosis, the stage of the disease is based on the level of kidney function: Stage Description GFR(mL/min/1.73 m(2)) 1 Kidney damage with normal or decreased GFR 90 2 Kidney damage with mild decrease in GFR 60-89 3 Moderate decrease in GFR 30-59 4 Severe decrease in GFR 15-29 5 Kidney failure <15 (or dialysis) 7 Serum levels of PSA measured using the [employer] [place] DXI Hybritech immunoassay should not be interpreted as absolute evidence of the presence or absence of disease. The PSA value should be used in conjunction with other pertinent clinical diagnostic procedures. The values obtained with different assay methods or kits cannot be used interchangeably. 8 Normal Range 180 to 914 Indeterminate Range 145 to 180 Deficient Range <145 9 Because ethnic data is not always readily available, this report includes an eGFR for both -Americans and non- Americans. The National Kidney Disease Education Program (NKDEP) does not endorse the use of the MDRD equation for patients that are not between the ages of 18 and 70, are , have extremes of body size, muscle mass, or nutritional status, or are non- or non-. According to the National Kidney Foundation, irrespective of diagnosis, the stage of the disease is based on the level of kidney function: Stage Description GFR(mL/min/1.73 m(2)) 1 Kidney damage with normal or decreased GFR 90 2 Kidney damage with mild decrease in GFR 60-89 3 Moderate decrease in GFR 30-59 4 Severe decrease in GFR 15-29 5 Kidney failure <15 (or dialysis) 10 Desirable <150 Borderline high 150-199 High 200-499 Very High >500 11 Desirable <200 Borderline high 200-239 High >239 12 Low <40 Desirable: 40-60 High: >60 13 Desirable: <100 mg/dL Near Optimal: 100-129 mg/dL Borderline High: 130-159 mg/dL High: 160-189 mg/dL Very High: >189 mg/dL 14 Serum levels of PSA measured using the [employer] [place] DXI Hybritech immunoassay should not be interpreted as absolute evidence of the presence or absence of disease. The PSA value should be used in conjunction with other pertinent clinical diagnostic procedures. A PSA value in the range of 0.1 to 0.6 ng/ml is indeterminate if being used as an indicator of recurrent or residual disease. The values obtained with different assay methods or kits cannot be used interchangeably. 15 Test Performed by: [address] [address] Head Transfer Clerk: Jay Huggins II, M.D., Ph.D. 16 Normal Range 180 to 914 Indeterminate Range 145 to 180 Deficient Range <145 17 Because ethnic data is not always readily available, this report includes an eGFR for both -Americans and non- Americans. The National Kidney Disease Education Program (NKDEP) does not endorse the use of the MDRD equation for patients that are not between the ages of 18 and 70, are , have extremes of body size, muscle mass, or nutritional status, or are non- or non-. According to the National Kidney Foundation, irrespective of diagnosis, the stage of the disease is based on the level of kidney function: Stage Description GFR(mL/min/1.73 m(2)) 1 Kidney damage with normal or decreased GFR 90 2 Kidney damage with mild decrease in GFR 60-89 3 Moderate decrease in GFR 30-59 4 Severe decrease in GFR 15-29 5 Kidney failure <15 (or dialysis) 18 PT IS FASTING 19 Because ethnic data is not always readily available, this report includes an eGFR for both -Americans and non- Americans. The National Kidney Disease Education Program (NKDEP) does not endorse the use of the MDRD equation for patients that are not between the ages of 18 and 70, are , have extremes of body size, muscle mass, or nutritional status, or are non- or non-. According to the National Kidney Foundation, irrespective of diagnosis, the stage of the disease is based on the level of kidney function: Stage Description GFR(mL/min/1.73 m(2)) 1 Kidney damage with normal or decreased GFR 90 2 Kidney damage with mild decrease in GFR 60-89 3 Moderate decrease in GFR 30-59 4 Severe decrease in GFR 15-29 5 Kidney failure <15 (or dialysis) 20 Desirable <150 Borderline high 150-199 High 200-499 Very High >500 21 Desirable <200 Borderline high 200-239 High >239 22 Low <40 Desirable: 40-60 High: >60 23 Desirable: <100 mg/dL Near Optimal: 100-129 mg/dL Borderline High: 130-159 mg/dL High: 160-189 mg/dL Very High: >189 mg/dL 24 PT IS FASTING 25 Serum levels of PSA measured using the [employer] DXI Hybritech immunoassay should not be interpreted as absolute evidence of the presence or absence of disease. The PSA value should be used in conjunction with other pertinent clinical diagnostic procedures. A PSA value in the range of 0.1 to 0.6 ng/ml is indeterminate if being used as an indicator of recurrent or residual disease. The values obtained with different assay methods or kits cannot be used interchangeably. 26 RUN DATE: 06/06/13 [facility] LAB LIVE PAGE 1 RUN TIME: [address] [place] [id number] Specimen Inquiry Name: RAFI HAQ JR : [address]: Ervin De La Rosa MD Acct: [id number] Unit: [id number] AGE: 43 Location: ED Re06/06/13 SEX: M Status: REG ER SPEC: [id number] GEOVANNA: 06/06/13-20[address] [facility] [address]: Ervin De La Rosa MD REQ: [id number] RECD: 06/06/13 STATUS: BOY LANE DR: Claudio Arango MD _ SOURCE: STOOL SPDES: ORDERED: Hemoccult Procedure Result Verified Site Stool Specimen Description Final 06/06/13- 2205 ML Test not performed Stool Occult Blood Final 06/06/13- 2205 ML Stool Occult Blood Negative END OF REPORT * ML=Testing performed at Main Lab DEPARTMENT OF PATHOLOGY, [address] [place] [address] Suhas Hughes M.D. Director [facility] Permit #[id number] 27 Because ethnic data is not always readily available, this report includes an eGFR for both -Americans and non- Americans. The National Kidney Disease Education Program (NKDEP) does not endorse the use of the MDRD equation for patients that are not between the ages of 18 and 70, are , have extremes of body size, muscle mass, or nutritional status, or are non- or non-. According to the National Kidney Foundation, irrespective of diagnosis, the stage of the disease is based on the level of kidney function: Stage Description GFR(mL/min/1.73 m(2)) 1 Kidney damage with normal or decreased GFR 90 2 Kidney damage with mild decrease in GFR 60-89 3 Moderate decrease in GFR 30-59 4 Severe decrease in GFR 15-29 5 Kidney failure <15 (or dialysis) 28 Serum levels of PSA measured using the [employer] DXI Hybritech immunoassay should not be interpreted as absolute evidence of the presence or absence of disease. The PSA value should be used in conjunction with other pertinent clinical diagnostic procedures. A PSA value in the range of 0.1 to 0.6 ng/ml is indeterminate if being used as an indicator of recurrent or residual disease. The values obtained with different assay methods or kits cannot be used interchangeably. 29 HDL Interpretation: Undesirable: High Risk: Less than 40 mg/dL Desirable: Low Risk: Greater than 60 mg/dL 30 LDL Interpretation: Low Risk Optimal Level: LDL Less than 100 mg/dL Near or Above Optimal: LDL 100-129 mg/dL Borderline High Risk: LDL 130-159 mg/dL High Risk: LDL 160-189 mg/dL Very High Risk: LDL Greater than 189 mg/dL 31 Because ethnic data is not always readily available, this report includes an eGFR for both -Americans and non- Americans. The National Kidney Disease Education Program (NKDEP) does not endorse the use of the MDRD equation for patients that are not between the ages of 18 and 70, are , have extremes of body size, muscle mass, or nutritional status, or are non- or non-. According to the National Kidney Foundation, irrespective of diagnosis, the stage of the disease is based on the level of kidney function: Stage Description GFR(mL/min/1.73 m(2)) 1 Kidney damage with normal or decreased GFR 90 2 Kidney damage with mild decrease in GFR 60-89 3 Moderate decrease in GFR 30-59 4 Severe decrease in GFR 15-29 5 Kidney failure <15 (or dialysis) 32 Anion gap measurement may be of limited value in the presence of any alkalosis, especially in a combined acid base disorder. . 33 A metabolite of Naproxen, O-desmethylnaproxen, has been shown to interfere with the Jendrassik-Juanis method for measuring total bilirubin. Samples from patients who have taken Naproxen have shown spurious elevation in total bilirubin levels. 34 Because ethnic data is not always readily available, this report includes an eGFR for both -Americans and non- Americans. The National Kidney Disease Education Program (NKDEP) does not endorse the use of the MDRD equation for patients that are not between the ages of 18 and 70, are , have extremes of body size, muscle mass, or nutritional status, or are non- or non-. According to the National Kidney Foundation, irrespective of diagnosis, the stage of the disease is based on the level of kidney function: Stage Description GFR(mL/min/1.73 m(2)) 1 Kidney damage with normal or decreased GFR 90 2 Kidney damage with mild decrease in GFR 60-89 3 Moderate decrease in GFR 30-59 4 Severe decrease in GFR 15-29 5 Kidney failure <15 (or dialysis) 35 CHOLESTEROL INTERPRETATION: Desirable: Less than 200 MG/DL Borderline-High Risk: 200-239 MG/DL High-Risk: 240 MG/DL and over 36 HDL INTERPRETATION: Undesirable: High Risk: Less than 40 MG/DL Desirable: Low Risk: Greater than 60 MG/DL 37 LDL INTERPRETATION: Low Risk Optimal Level: LDL Less than 100 MG/DL Near or Above Optimal: LDL 100-129 MG/DL Borderline High Risk: LDL 130-159 MG/DL High Risk: LDL 160-189 MG/DL Very High Risk: LDL Greater than 189 MG/DL 38 Presumptive Positive 39 This report is intended for use in clinical monitoring and management of patients. It is not intended for use in employment-related testing. Test Performed by: [place] [address] Head Transfer Clerk: Eduardo Ocampo III, M.D. 40 -- REFERENCE VALUE -- Cutoff: 500 41 -- REFERENCE VALUE -- Cutoff: 200 42 -- REFERENCE VALUE -- Cutoff: 200 43 -- REFERENCE VALUE -- Cutoff: 300 44 -- REFERENCE VALUE -- Cutoff: 300 45 -- REFERENCE VALUE -- Cutoff: 300 46 -- REFERENCE VALUE -- Cutoff: 300 47 Presumptive Positive Drug Confirmation ordered by reflex. Refer to confirmation results to follow for the definitive results. This report is intended for use in clinical monitoring or management of patients. It is not intended for use in employment-related testing. Test Performed by: [place] [id number] Head Transfer Clerk: Eduardo Ocampo III, M.D. 48 -- REFERENCE VALUE -- Cutoff: 300 49 -- REFERENCE VALUE -- Cutoff: 100 50 -- REFERENCE VALUE -- Cutoff: 100 51 -- REFERENCE VALUE -- Cutoff: 100 52 -- REFERENCE VALUE -- Cutoff: 100 53 -- REFERENCE VALUE -- Cutoff: 100 54 This report is intended for use in clinical monitoring and management of patients. It is not intended for use in employment-related testing. Test Performed by: [facility] - [address] [id number] Head Transfer Clerk: Eduardo Ocampo III, M.D. 55 Anion gap measurement may be of limited value in the presence of any alkalosis, especially in a combined acid base disorder. . 56 A metabolite of Naproxen, O-desmethylnaproxen, has been shown to interfere with the [place] method for measuring total bilirubin. Samples from patients who have taken Naproxen have shown spurious elevation in total bilirubin levels. 57 Because ethnic data is not always readily available, this report includes an eGFR for both -Americans and non- Americans. The National Kidney Disease Education Program (NKDEP) does not endorse the use of the MDRD equation for patients that are not between the ages of 18 and 70, are , have extremes of body size, muscle mass, or nutritional status, or are non- or non-. According to the National Kidney Foundation, irrespective of diagnosis, the stage of the disease is based on the level of kidney function: Stage Description GFR(mL/min/1.73 m(2)) 1 Kidney damage with normal or decreased GFR 90 2 Kidney damage with mild decrease in GFR 60-89 3 Moderate decrease in GFR 30-59 4 Severe decrease in GFR 15-29 5 Kidney failure <15 (or dialysis) 58 New Reference Range and Interpretation effective 01/10/2002 TnI (ng/ml) INTERPRETATION Less Than 0.06 ng/mL NOT SUPPORTIVE OF DIAGNOSIS OF CA 0.06 - 0.50 ng/ml INDETERMINATE: SUGGEST SERIAL STUDIES IF CLINICALLY INDICATED. Greater than 0.5 ng/mL CONSISTENT WITH DIAGNOSIS OF CA . 59 CHOLESTEROL INTERPRETATION: Desirable: Less than 200 MG/DL Borderline-High Risk: 200-239 MG/DL High-Risk: 240 MG/DL and over 60 HDL INTERPRETATION: Undesirable: High Risk: Less than 40 MG/DL Desirable: Low Risk: Greater than 60 MG/DL 61 LDL INTERPRETATION: Low Risk Optimal Level: LDL Less than 100 MG/DL Near or Above Optimal: LDL 100-129 MG/DL Borderline High Risk: LDL 130-159 MG/DL High Risk: LDL 160-189 MG/DL Very High Risk: LDL Greater than 189 MG/DL 62 Anion gap measurement may be of limited value in the presence of any alkalosis, especially in a combined acid base disorder. . 63 Note change in reference range as of 11/28/07. The change was based on recommendations from the [place] [employer]. 64 A metabolite of Naproxen, O-desmethylnaproxen, has been shown to interfere with the [place] method for measuring total bilirubin. Samples from patients who have taken Naproxen have shown spurious elevation in total bilirubin levels. 65 Because ethnic data is not always readily available, this report includes an eGFR for both -Americans and non- Americans. The National Kidney Disease Education Program (NKDEP) does not endorse the use of the MDRD equation for patients that are not between the ages of 18 and 70, are , have extremes of body size, muscle mass, or nutritional status, or are non- or non-. According to the National Kidney Foundation, irrespective of diagnosis, the stage of the disease is based on the level of kidney function: Stage Description GFR(mL/min/1.73 m(2)) 1 Kidney damage with normal or decreased GFR 90 2 Kidney damage with mild decrease in GFR 60-89 3 Moderate decrease in GFR 30-59 4 Severe decrease in GFR 15-29 5 Kidney failure <15 (or dialysis) 66 CHOLESTEROL INTERPRETATION: Desirable: Less than 200 MG/DL Borderline-High Risk: 200-239 MG/DL High-Risk: 240 MG/DL and over 67 HDL INTERPRETATION: Undesirable: High Risk: Less than 40 MG/DL Desirable: Low Risk: Greater than 60 MG/DL 68 LDL INTERPRETATION: Low Risk Optimal Level: LDL Less than 100 MG/DL Near or Above Optimal: LDL 100-129 MG/DL Borderline High Risk: LDL 130-159 MG/DL High Risk: LDL 160-189 MG/DL Very High Risk: LDL Greater than 189 MG/DL Procedures Date Code Description Status 12/25/2017 96295 Diffusing Capacity Completed 12/25/2017 16366 Plethysmography Determination Lung Volumes & Per Airway Completed Resist 12/25/2017 04769 Pulmonary Function><Bronchodil Completed 01/01/2017 48312 EKG, Interpretation Only Completed 12/30/2016 40760 EEG Recording Awake & Asleep Completed 12/30/2016 91665 EKG, Interpretation Only Completed 08/26/2015 81434 Pulmonary Function><Bronchodil Completed 05/27/2015 73639 Polysomnography Sleep Staging 4+ Parameters W/Cpap Completed 04/13/2015 44010 Polysomnography Sleep Staging 4+ Parameters Completed 07/21/2010 96509 Treadmill Interp/Report Only Completed 07/21/2010 70758 Stress Test Supervsn W/Out I/R Completed 07/11/2010 41721 ECHO Stress Test Incl Perf Contiuous ekg Monitoring W/Phys Completed Superv 07/06/2010 71063 EKG Tracing & Interpretation Completed Encounters Type Date Location Provider Dx Diagnosis Office Visit 02/13/2018 Mattie Zazueta MD J44.9 Chronic obstructive 11:30a Medicine - [place] pulmonary disease, Rd unspecified F33.1 Major depressive disorder, recurrent, moderate F51.01 Primary insomnia Z23 Encounter for immunization G47.00 Insomnia, unspecified Office Visit 02/01/2018 10:00a Mattie Zazueta MD R53.83 Other fatigue [facility] R63.4 Abnormal weight loss R05 Cough F17.210 Nicotine dependence, cigarettes, uncomplicated Office Visit 12/17/2017 Mattie Snyder M51.16 Intervertebral disc 8:00a Stephanie Arango M.D. disorders w [address] radiculopathy, lumbar region J44.9 Chronic obstructive pulmonary disease, unspecified F17.210 Nicotine dependence, cigarettes, uncomplicated Office Visit 10/01/2017 10:40a Mattie Snyder J01.90 Acute sinusitis, Stephanie Arango M.D. unspecified [address] Office Visit 09/14/2017 8:40a Mattie Snyder J44.9 Chronic Stephanie Arango M.D. obstructive [address] pulmonary disease, unspecified M51.16 Intervertebral disc disorders w radiculopathy, lumbar region R09.82 Postnasal drip Office Visit 06/14/2017 9:00a Mattie Arango, Z00.00 Encntr for Stephanie Jacques M.D. general adult [address] medical exam w/o abnormal findings F17.210 Nicotine dependence, cigarettes, uncomplicated Office Visit 01/08/2017 2:56p [facility] Stew Soliman K72.00 Acute and Assoc,olivier Young D.O. subacute Hospitalists hepatic failure without coma J40 Bronchitis, not specified as acute or chronic R45.851 Suicidal ideations T39.1x2A Poisoning by 4-Aminophenol derivatives, self-harm, init Office Visit 01/01/2017 10:53a [facility] Shun Dennison, J96.00 Acute respiratory Assoc,olivier Ayala failure, unsp w Hospitalists hypoxia or hypercapnia J69.0 Pneumonitis due to inhalation of food and vomit T39.1x4D Poisoning by 4-Aminophenol derivatives, undetermined, subs G93.40 Encephalopathy, unspecified Office Visit 12/31/2016 10:53a [facility] Reji Ordaz J96.00 Acute respiratory Assoc,olivier Rader MD failure, unsp w Hospitalists hypoxia or hypercapnia T39.1x4D Poisoning by 4-Aminophenol derivatives, undetermined, subs G93.40 Encephalopathy, unspecified T50.904D Poisoning by unsp drug/meds/biol subst, undetermined, subs Office 12/30/2016 Neurohospitalist Sydney G93.40 Encephalopathy, Visit 8:38a [facility], unspecified M.D. Office 12/30/2016 [facility] Reji Ordaz J96.00 Acute respiratory Visit 10:50a Assoc, Hospitalists MD Prasanth failure, unsp w hypoxia or hypercapnia G93.40 Encephalopathy, unspecified J43.9 Emphysema, unspecified R56.9 Unspecified convulsions Office Visit 10/13/2016 8:00a [facility] Internal Claudio Arango, J06.9 Acute upper Medicine - M.D. respiratory [address] infection, unspecified J44.9 Chronic obstructive pulmonary disease, unspecified M51.16 Intervertebral disc disorders w radiculopathy, lumbar region Office 08/14/2016 Neurosurgery Rafi M43.17 Spondylolisthesis, Visit 1:50p Services Of Mattie Gonzalez M.D. lumbosacral region Office 08/10/2016 [facility] Internal Claudio M51.16 Intervertebral disc Visit 8:40a Medicine - [place], disorders w Rd M.D. 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 Services Of [facility] PA-C lumbosacral region Office Visit 07/24/2016 [facility] Internal [place] M51.16 Intervertebral disc 4:00p Medicine - [place], disorders w Rd M.DJo-Ann radiculopathy, lumbar region Office Visit 05/24/2016 [facility] Internal Claudio M51.16 Intervertebral disc 7:40a Medicine - [place], disorders w [place] M.Iain radiculopathy, lumbar region E78.5 Hyperlipidemia, unspecified F17.210 Nicotine dependence, cigarettes, uncomplicated J44.9 Chronic obstructive pulmonary disease, unspecified Office Visit 02/16/2016 9:40a [facility] Internal Claudio Orlin44.Abdias Arango M.D. obstructive [place] pulmonary disease, unspecified E78.2 Mixed hyperlipidemia F32.9 Major depressive disorder, single episode, unspecified Office Visit 12/08/2015 10:40a [facility] Internal [place] F32.9 Major depressive Stephanie Arango M.D. disorder, single [place] episode, unspecified G47.00 Insomnia, unspecified Office Visit 11/19/2015 10:00a [facility] Internal [place] G47.33 Obstructive sleep Stephanie Arango M.D. apnea (adult) [place] (pediatric) J44.9 Chronic obstructive pulmonary disease, unspecified F17.210 Nicotine dependence, cigarettes, uncomplicated R53.83 Other fatigue F32.9 Major depressive disorder, single episode, unspecified Z00.01 Encounter for general adult medical exam w abnormal findings Office Visit 10/22/2015 Pulmonology And Prabha G47.33 Obstructive sleep 8:30a Sleep Services Of MONI Olivas RN, apnea (adult) [facility] SEAMER PANTY HOSE-BC (pediatric) F17.210 Nicotine dependence, cigarettes, uncomplicated Office Visit 08/20/2015 Pulmonology And Prabha G47.33 Obstructive sleep 8:30a Sleep Services Of MONI Olivas RN, apnea (adult) [facility] SEAMER PANTY HOSE-BC (pediatric) F17.210 Nicotine dependence, cigarettes, uncomplicated Office Visit 08/13/2015 8:00a [facility] Internal Claudio J44.Abdias Chronic Stephanie Arango M.D. obstructive [place] pulmonary disease, unspecified E78.2 Mixed hyperlipidemia Z12.5 Encounter for screening for malignant neoplasm of prostate R63.4 Abnormal weight loss Office Visit 07/06/2015 Pulmonology And Prabha G47.33 Obstructive sleep 11:00a Sleep Services Of MONI Olivas, MYRON, apnea (adult) [facility] (pediatric) F17.210 Nicotine dependence, cigarettes, uncomplicated Office Visit 06/01/2015 [facility] Internal Claudio M51.16 Intervertebral disc 4:00p Stephanie Arango M.D. disorders w [address] radiculopathy, lumbar region Office Visit 05/25/2015 [facility] Internal Claudio J44.9 Chronic obstructive 2:00p Stephanie Arango M.D. pulmonary disease, [address] unspecified E78.5 Hyperlipidemia, unspecified G47.30 Sleep apnea, unspecified M51.16 Intervertebral disc disorders w radiculopathy, lumbar region F17.210 Nicotine dependence, cigarettes, uncomplicated Office Visit 05/07/2015 Pulmonology And Prabha G47.33 Obstructive sleep 8:30a Sleep Services Of MONI Olivas RN, apnea (adult) [facility] (pediatric) Office Visit 04/12/2015 Pulmonology And Mirta Simon, R53.82 Chronic fatigue, 10:15a Sleep Services Of unspecified [facility] G47.9 Sleep disorder, unspecified F17.210 Nicotine dependence, cigarettes, uncomplicated Office Visit 02/10/2015 9:40a [facility] Beverly Snyder R53.82 Chronic fatigue, Stephanie Arango M.D. unspecified [place] E53.9 Vitamin B deficiency, unspecified D48.5 Neoplasm of uncertain behavior of skin L98.9 Disorder of the skin and subcutaneous tissue, unspecified Office Visit 01/19/2015 8:00a [facility] Beverly Arango, J44.9 Chronic Medicine Sawyer Ayala obstructive [address] pulmonary disease, unspecified E78.5 Hyperlipidemia, unspecified K21.9 Gastro-esophageal reflux disease without esophagitis F17.210 Nicotine dependence, cigarettes, uncomplicated G47.30 Sleep apnea, unspecified R53.82 Chronic fatigue, unspecified Z23 Encounter for immunization Office Visit 07/14/2014 8:40a [facility] Internal Claudio Arango, 496 COPD Airway Medicine Sawyer Ayala Obstruction [address] Chronic Not Class Elsewhere V70.0 Examination General Medical Routine AT Health Care Facility 272.4 Hyperlipidemia Other Unspec 530.81 Esophageal Reflux Office Visit 06/15/2014 11:20a [facility] Internal Hector Gould 496 COPD Airway Medicine Sawyer Whalen M.D. Obstruction [place] Chronic Not Class Elsewhere Office Visit 05/13/2014 11:00a [facility] Internal Claudio 466.0 Bronchitis Acute Medicine - [place] Arango M.D. 305.1 Tobacco Use Disorder 496 COPD Airway Obstruction Chronic Not Class Elsewhere V76.44 Screening For Malig Sarath Prostate 272.4 Hyperlipidemia Other Unspec Office Visit 07/31/2013 4:40p [facility] Internal Medicine Grecia Knight, 724.3 Sciatica - [place] Danial.Iain 722.93 Disc Disorder Other & Unspec Lumbar Region 722.91 Disc Disorder Other & Unspec Cervical Region Office Visit 07/10/2013 4:40p [facility] Internal Grecia Knight, 477.8 Rhinitis Medicine - M.DJo-Ann Allergic Due To [place] Other Allergen 602.8 Prostate Disorder Spec Other Office Visit 05/16/2013 11:00a [facility] Internal Grecia Knight, 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 Acquired AT [place] 721.3 Spondylosis Lumbar W/O Myelopathy 724.3 Sciatica Office Visit 04/15/2013 2:40p [facility] Internal Grecia Knight, 461.9 Sinusitis Acute Medicine - M.D. Unspec [place] 477.8 Rhinitis Allergic Due To Other Allergen 535.50 Gastritis & Gastroduodenitis Unspec W/O Hemorrhage Office Visit 01/13/2013 9:00a [facility] Internal Claudio Arango V76.44 Screening For Medicine - M.DJo-Ann Malig Sarath [place] Prostate 272.4 Hyperlipidemia Other Unspec 722.93 Disc Disorder Other & Unspec Lumbar Region 496 COPD Airway Obstruction Chronic Not Class Elsewhere 305.1 Tobacco Use Disorder V04.81 Need For Prophylactic Vaccination & Inoculation/Influenza Office Visit 07/24/2012 11:20a [facility] Internal Claudio 466.0 Bronchitis Acute Medicine - [place]jik[place], M.D. [place] Office Visit 05/27/2012 8:20a [facility] Internal Claudio 722.93 Disc Disorder Stephanie Arango M.D. Other & Unspec [place] Lumbar Region 496 COPD Airway Obstruction Chronic Not Class Elsewhere 272.4 Hyperlipidemia Other Unspec 305.1 Tobacco Use Disorder V70.0 Examination General Medical Routine AT Health Care Facility V76.44 Screening For Malig Sarath Prostate Office Visit 03/06/2012 9:40a [facility] Internal Claudio Arango, 722.91 Disc Disorder Medicine - [place]shley Other & Unspec [place] Cervical Region Office Visit 02/21/2012 2:40p [facility] Internal Claudio Arango, 722.93 Disc Disorder Medicine - Lucy Other & Unspec [place] Lumbar Region 496 COPD Airway Obstruction Chronic Not Class Elsewhere 272.4 Hyperlipidemia Other Unspec 305.1 Tobacco Use Disorder 722.91 Disc Disorder Other & Unspec Cervical Region Office Visit 01/26/2012 11:00a Neurosurgery Sabas Dupont 721.3 Spondylosis Services Of Mattie White M.D. Lumbar W/O Myelopathy 724.4 Neuritis Or Radiculitis Thoracic Or Lumbosacral Unspec 729.2 Neuralgia Neuritis & Radiculitis Unspec 719.40 Pain Joint Site Unspec Office Visit 12/18/2011 9:20a [facility] Internal Claudio Arango, 496 COPD Airway Medicine - [place] Obstruction [place] Chronic Not Class Elsewhere 272.4 Hyperlipidemia Other Unspec 722.93 Disc Disorder Other & Unspec Lumbar Region 305.1 Tobacco Use Disorder 461.9 Sinusitis Acute Unspec V04.81 Need For Prophylactic Vaccination & Inoculation/Influenza Office Visit 11/13/2011 10:15a [facility] Internal Deborah Tse, 496 COPD Airway Medicine - [place] Obstruction [place] Chronic Not Class Elsewhere 272.4 Hyperlipidemia Other Unspec 722.93 Disc Disorder Other & Unspec Lumbar Region 305.1 Tobacco Use Disorder Office Visit 09/11/2011 8:40a [facility] Internal Claudio Arango, 722.93 Disc Disorder Medicine - [place] Other & Unspec [place] Lumbar Region 272.4 Hyperlipidemia Other Unspec 496 COPD Airway Obstruction Chronic Not Class Elsewhere 305.1 Tobacco Use Disorder Office Visit 07/10/2011 2:00p [facility] Internal Claudio Arango, 722.93 Disc Disorder Stephanie Jacques M.D. Other & Unspec [place] Lumbar Region Office Visit 06/07/2011 11:00a [facility] Internal Claudio Arango 722.93 Disc Disorder Stephanie Jacques M.D. Other & Unspec [place] Lumbar Region 272.4 Hyperlipidemia Other Unspec 496 COPD Airway Obstruction Chronic Not Class Elsewhere 305.1 Tobacco Use Disorder Office Visit 05/24/2011 Neurosurgery Jesus Soliman 756.12 Spondylolisthesis 2:30p Services Of Mattie Pineda M.D. 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 Other & Unspec [place] Lumbar Region Office Visit 03/07/2011 9:40a DO Not Use Manager [employer] [place]audio 496 COPD Airway [place] M.[place]. Obstruction Chronic Not Class Elsewhere 305.1 Tobacco Use Disorder 272.4 Hyperlipidemia Other Unspec 528.6 Oral Soft Tissue Exlud Ginviva & Tongue Leukoplakia Mucosa 466.0 Bronchitis Acute v04.81 Need For Prophylactic Vaccination & Inoculation/Influenza v03.82 Streptococcus Pneumoniae Vaccination Spec Other Office 07/21/2010 Adria Wattsybpancho S. 794.31 Electrocardiogram Visit 11:30a Cardiology Lucy Andersen (ECG) (EKG) Abnormal 785.3 Abnormal Heart Sounds Other 786.50 Pain Chest Unspec 272.4 Hyperlipidemia Other Unspec Office Visit 07/11/2010 Adria Quaida S. 272.4 Hyperlipidemia 3:30p Cardiology Lucy Andersen Other Unspec 305.1 Tobacco Use Disorder 786.51 Pain Precordial Office Visit 07/06/2010 DO Not Use [employer] [place] 272.4 Hyperlipidemia Other 10:00a AT Ursula Arango M.D. Unspec 305.1 Tobacco Use Disorder 302.72 Psychosexual Dysfunction W/ Inhibited Sexual Excitement 786.51 Pain Precordial Office Visit 01/05/2010 9:00a DO Not Use [employer] [place] 302.72 Psychosexual AT Ursula Arango M.D. Dysfunction W/ Inhibited Sexual Excitement 305.1 Tobacco Use Disorder V70.0 Examination General Medical Routine AT Health Care Facility Office Visit 11/30/2009 9:00a DO Not Use [employer] [place] 302.72 Psychosexual AT Ursula Arango M.D. Dysfunction W/ Inhibited Sexual Excitement 305.1 Tobacco Use Disorder Office Visit 11/02/2008 1:00p DO Not Use Manager [employer] Jil Woodward PA 466.0 Bronchitis Acute AT [facility] V77.91 Screening For Lipoid Disorders Plan of Treatment Future Appointment(s):04/11/2018 9:30 am - Mirta Simon MD at [facility]03/21/2018 8:00 am - Claudio Arango M.D. at [facility] Internal Medicine - [address]02/13/2018 - Rachel Zazueta MDJ44.9 Chronic obstructive pulmonary disease, unspecifiedReferral:Mirta Simon MD, Pulmonary HsbruqoaQ00.1 Major depressive disorder, recurrent, moderateComments: continue with therapy.I recommend you consider an anti depressant like citalopram or sfgwqqsmjaL90.01 Primary insomniaNew Medication:Trazodone HCL 50 mg - one po at bedtime prn [id number] Encounter for oislpltojzvoK90.00 Insomnia , unspecified
--- NOTE | 2018-03-11 09:41 | ED ---
Psychiatric Complaint - HPI Summary HPI Summary: This pt is a 48 y/o male presenting to [facility] via EMS c/o depression and SI thoughts. Pt reports he has been having SI thoughts for two weeks now. He walked to a mental health center this morning requesting help for SI. Pt was then transferred to the ED. Denies SI plan, HI thoughts/plan. Pt notes recent stressor, left two months ago. He has hx of prior suicide attempt last year when he overdosed on Tylenol PM and pt had to spend time in the ICU. Per nurse's note, pt has sleep disturbance and decreased appetite. Pt does take medications for anxiety and depression. PMHx: chronic low back pain, COPD, emphysema. Denies tobacco and alcohol use. Pt admits to marijuana use a couple of weeks ago. - History Of Current Complaint Chief Complaint: EDMentalHealth Time Seen by Provider: 03/11/18 09:15 Hx Obtained From: Patient Onset/Duration: Lasting Days, Lasting Weeks Timing: Weeks Severity Currently: Moderate Character: Depressed Aggravating Factor(s): Recent Stress - left 2 months ago Alleviating Factor(s): Nothing Associated Signs And Symptoms: Positive: Confused Has Suicidal: Reports: Thoughts, Has Prior Attempt(s) - last year overdosing on Tylenol PM. Denies: With A Plan Has Homicidal: Denies: Thoughts, With A Plan Recent Stressor(s): left 2 months ago - Allergies/Home Medications Allergies/Adverse Reactions: Allergies Allergy/AdvReac Type Severity Reaction Status Date / Time No Known Allergies Allergy Verified 01/08/17 20:19 Home Medications: Home Medications traZODone TAB* [Desyrel TAB*] 50 mg PO BEDTIME 03/11/18 [History Confirmed 03/11] PMH/Surg Hx/FS Hx/Imm Hx Endocrine/Hematology History: Denies: Hx Diabetes, Hx Thyroid Disease Comment Only: Other Endocrine/Hematological Disorders - hyponatremia, hyperlipidemia Cardiovascular History: Denies: Hx Hypertension, Hx Pacemaker/ICD Respiratory History: Reports: Hx Chronic Obstructive Pulmonary Disease (COPD) - Emphysema, Hx Sleep Apnea, Other Respiratory Problems/Disorders - brachial neuritis Denies: Hx Asthma GI History: Reports: Hx Gastroesophageal Reflux Disease Denies: Hx Ulcer Musculoskeletal History: Denies: Hx Scoliosis Sensory History: Denies: Hx Contacts or Glasses, Hx Hearing Aid Opthamlomology History: Denies: Hx Contacts or Glasses Neurological History: Reports: Other Neuro Impairments/Disorders - LBP RADIATING DOWN L LEG Denies: Hx Headaches Psychiatric History: Reports: Hx Depression, Hx Community Mental Health Tx, Hx Suicide Attempt Denies: Hx Panic Disorder Infectious Disease History: No Infectious Disease History: Denies: Hx Clostridium Difficile, Hx Hepatitis, Hx Human Immunodeficiency Virus (HIV), Hx of Known/Suspected MRSA, Hx Shingles, Hx Tuberculosis, Hx Known/ Suspected VRE, Hx Known/Suspected VRSA, History Other Infectious Disease, Traveled Outside the [place] in Last 30 Days - Family History Known Family History: Positive: Hypertension - Social History Alcohol Use: None Hx Substance Use: Yes Substance Use Type: Reports: Marijuana Substance Use Comment - Amount & Last Used: occasionally, last used a couple of weeks ago Smoking Status (MU): Former Smoker Amount Used/How Often: 1 ppd Length of Time of Smoking/Using Tobacco: 35 years Have You Smoked in the Last Year: Yes - and has smoked in the last 30 days Review of Systems Constitutional: Other - POS: sleep disturbance, decreased appetite Negative: Fever, Chills Respiratory: Negative Gastrointestinal: Negative Genitourinary: Negative Psychological: Other - POS: SI thoughts Positive: Depressed. Negative: Other - NEG: SI plan, HI thoughts/plan All Other Systems Reviewed And Are Negative: Yes Physical Exam - Summary Physical Exam Summary: VITAL SIGNS: Reviewed. GENERAL: Patient is a well-developed and nourished male. Patient is not in any acute respiratory distress. HEAD AND FACE: No signs of trauma. No ecchymosis, hematomas or skull depressions. No sinus tenderness. EYES: PERRLA, EOMI x 2, No injected conjunctiva, no nystagmus. EARS: Hearing grossly intact. Ear canals and tympanic membranes are within normal limits. MOUTH: Oropharynx within normal limits. NECK: Supple, trachea is midline, no adenopathy, no JVD, no carotid bruit, no c- spine tenderness, neck with full ROM. CHEST: Symmetric, no tenderness at palpation LUNGS: Clear to auscultation bilaterally. No wheezing or crackles. CVS: Regular rate and rhythm, S1 and S2 present, no murmurs or gallops appreciated. ABDOMEN: Soft, non-tender. No signs of distention. No rebound, no guarding, and no masses palpated. Bowel sounds are normal. EXTREMITIES: FROM in all major joints, no edema, no cyanosis or clubbing. NEURO: Alert and oriented x 3. No acute neurological deficits. Speech is normal and follows commands. SKIN: Dry and warm Triage Information Reviewed: Yes Vital Signs On Initial Exam: Initial Vitals Temp Pulse Resp BP Pulse Ox 98.5 F 72 16 132/91 98 03/11/18 09:06 03/11/18 09:06 03/11/18 09:06 03/11/18 09:06 03/11/18 09:06 Vital Signs Reviewed: Yes Diagnostics - Vital Signs Vital Signs Temp Pulse Resp BP Pulse Ox 03/11/18 09:06 98.5 F 72 16 132/91 98 - Laboratory Result Diagrams: 03/11/18 09:56 03/11/18 09:56 Lab Statement: Any lab studies that have been ordered have been reviewed, and results considered in the medical decision making process. Re-Evaluation - Re-Evaluation First Eval Re-Evaluation Time: 10:09 Comment: Pt is medically cleared. Course/Dx - Course Assessment/Plan: This pt is a 48 y/o male presenting to [facility] via EMS c/o depression and SI thoughts. Pt reports he has been having SI thoughts for two weeks now. He walked to a mental health center this morning requesting help for SI. Pt was then transferred to the ED. Denies SI plan, HI thoughts/plan. Pt notes recent stressor, left two months ago. He has hx of prior suicide attempt last year when he overdosed on Tylenol PM and pt had to spend time in the ICU. Per nurse's note, pt has sleep disturbance and decreased appetite. Pt does take medications for anxiety and depression. PMHx: chronic low back pain, COPD, emphysema. Denies tobacco and alcohol use. Pt admits to marijuana use a couple of weeks ago. Blood work w/o a significant abnormality. He is medically cleared. He is awaiting for a MHE. Patient is hemodynamically stable and A+O x 3. Pt had a mental health evaluation and his case was reviewed by Dr. Wan, psychiatrist. Dr. Wan will admit the pt to [facility] with diagnosis of unspecified depressive disorder. - Differential Dx/Clinical Impression Provider Diagnosis: Depression Discharge - Sign-Out/Discharge Documenting (check all that apply): Patient Departure - Admit to [facility] - Discharge Plan Condition: Stable Disposition: PSYCHIATRIC FACILITY-[facility] - Billing Disposition and Condition Condition: STABLE Disposition: Psychiatric Facility [facility] - Attestation Statements Document Initiated by Leobardo: Yes Documenting Scribe: Leyda Johnson Provider For Whom Leobardo is Documenting (Include Credential): Hector Strickland MD Scribe Attestation: Leyda Davis, scribed for Hector Strickland MD on 03/11/18 at 1842. Scribe Documentation Reviewed: Yes Provider Attestation: The documentation as recorded by the scribeLeyda accurately reflects the service I personally performed and the decisions made by me, Hector Strickland MD Status of Scribe Document: Viewed
[2018-03-11 09:52] LABS: Urine Appearance Cloudy; Urine Blood Negative (Negative); Urine Color Yellow; Urine Ketones Negative (Negative); Urine Protein Negative (Negative); Urine Specific Gravity 1.018 (1.010-1.030); Urine Urobilinogen Negative (Negative)
[2018-03-11 10:26] LABS: ABS Basophils 0.1 10^3/ul (0-0.2); ABS Eosinophils 0 10^3/ul (0-0.6); ABS Lymphocytes 2.2 10^3/ul (1.0-4.8); ABS Monocytes 0.5 10^3/ul (0-0.8); ABS Nucleated RBC 0 10^3/ul; Eosinophil % 0.5 %; Hematocrit 42 % (42-52); Hemoglobin 14.3 g/dl (14.0-18.0); Lymphocyte % 24.5 %; Mean Corpuscular HGB Conc 34 g/dl (31-36); Mean Corpuscular Hemoglobin 32 pg (27-31); Mean Corpuscular Volume 94 fL (80-94); Mean Platelet Volume 8.2 fL (7.4-10.4); Nucleated Red Blood Cells % 0.1; Platelet Count 170 10^3/ul (150-450); Red Blood Count 4.46 10^6/ul (4.00-5.40); Red Cell Distribution Width 14 % (10.5-15); White Blood Count 8.8 10^3/ul (3.5-10.8)
[2018-03-11 10:44] LABS: EGFR Non-African American 105.4 (>60)
[2018-03-11] MEDS ORDERED: Al Hydrox/Mg Hydrox/Simet LIQ* 30 ML UDC PO PRN (12:45)
[2018-03-11] MEDS ORDERED: Albuterol inh POWDER (NF) 1 PUFF MDI INH PRN (12:47)
[2018-03-11] MEDS ORDERED: hydrOXYzine HCL TAB* 50 MG PO PRN (12:47)
[2018-03-11] MEDS ORDERED: Albuterol HFA INHALER* 8 gm MDI INH PRN (18:16)
[2018-03-11] MEDS ORDERED: traZODone TAB* 50 MG TAB PO SCH (21:00)
[2018-03-11] MEDS: Mometasone/Formoter 100/5 MDI INH SCH (22:21)
[2018-03-12] MEDS: Mometasone/Formoter 100/5 MDI INH SCH ×2 (09:58→21:00)
[2018-03-12] MEDS ORDERED: Mouth Piece, Nicotine* 1 EACH CARTRIDGE ONE (16:37)
[2018-03-12] MEDS: Nicotine Inhaler* 10 MG AMP INH PRN (16:37)
[2018-03-12] MEDS: Nicotine PATCH 21 MG/24 HR* PATCH TRANSDERM SCH (16:39)
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
[2018-03-12] MEDS ORDERED: traZODone TAB* 100 MG PO SCH (21:00)
[2018-03-12] MEDS: Nicotine Patch Removal NOTE FOLLOW UP SCH (21:02)
[2018-03-13] MEDS: Mometasone/Formoter 100/5 MDI INH SCH ×2 (10:31→21:04)
[2018-03-13] MEDS: Nicotine PATCH 21 MG/24 HR* PATCH TRANSDERM SCH (10:32)
--- NOTE | 2018-03-13 16:38 | PN ---
Subjective - Subjective Date of Service: 03/13/18 Service Type: 33837 Hosp care 15 min low complexity Subjective: patient endorses continued depression and poor sleep. he is pleasant upon approach, primarily seclusive to self in milieu or in his room. he denies side effects from medication, agrees to increase dose. Objective - Appearance Appearance: Thin Framed Dysmorphic Features: Yes Hygiene: Normal Grooming: Fairly Well Kept - Behavior Psychomotor Activities: Normal Exhibits Abnormal Movement: No - Attitude and Relatedness Attitude and Relatedness: Cooperative Eye Contact: Good - Speech Quality: Unpressured Latencies: Normal Quantity: Terse - Mood Patient's Decription of Mood: "depressed" - Affect Observed Affect: Depressed Affect Consistent with: Dysphoria - Thought Process Patient's Thought Process: Impoverished Thought Content: Yes Passive Wish, No Suicidal Planning, No Homicidal Ideation, No Paranoid Ideation - Sensorium Experiencing Hallucinations: No, Sensorium is Clear Type of Hallucinations: Visual: No, Auditory: No, Command: No - Level of Consciousness Level of Consciousness: Alert Orientation: Yes Intact, Yes Orientated to Time, Yes Orientated to Place, Yes Orientated to Person - Impulse Control Impulse Control: Intact - Insight and Judgement Insight and Judgement: Poor - Group Participation Particating in Group Activities: Yes Group Participation Comments: partial - Medication Management Medication Management Adherence: Yes Assessment - Assessment Merits Inpatient Hospitalization: For Immediate Safety, For Stabilization Inpatient DSM-V Dx: F33.2 Clinical Impression: 48yo wm, domiciled, with history of significant suicide attempt in 2017. His left approx 2 months ago and he is living alone in [facility]. He is tolerating trial of trazodone but continues to endorse severe depression. He merits hospitalization for immediate safety and stabilization. Plan - Plan Treatment Plan: Name: RAFI HAQ JR Birthdate: 1970 [id number] continue acute intensive psychiatric treatment. may decrease to q30min and allow staff pass. increase trazodone. Continued Medication Management: Start Medication Medications: Current Medications Acetaminophen (Tylenol Tab*) 650 mg PO Q4H PRN PRN Reason: for pain; or Temp >101 F Al Hydrox/Mg Hydrox/Simethicone (Maalox Plus*) 30 ml PO Q4H PRN PRN Reason: INDIGESTION Albuterol (Ventolin Hfa Inhaler*) 2 puff INH Q4H PRN PRN Reason: SHORTNESS OF BREATH Diphenhydramine HCl (Benadryl Po*) 50 mg PO BEDTIME PRN PRN Reason: INSOMNIA Hydroxyzine HCl (Atarax Tab*) 50 mg PO Q6H PRN PRN Reason: ANXIETY Mometasone Furoate/Formoterol Fumar (Dulera 100/5 Mdi*) 2 puff INH BID [facility] Last Admin: 03/13/18 10:31 Dose: 2 puff Nicotine (Nicotine Inhaler*) 10 mg INH Q2H PRN PRN Reason: CRAVING Last Admin: 03/12/18 16:37 Dose: 10 mg Nicotine (Nicotine Patch 21 Mg/24 Hr*) 1 patch TRANSDERM DAILY [facility] Last Admin: 03/13/18 10:32 Dose: Not Given Pharmacy Profile Note (Nicotine Patch Removal Note*) 1 note FOLLOW UP [facility] Last Admin: 03/12/18 21:02 Dose: Not Given Trazodone HCl (Desyrel Tab*) 200 mg PO BEDTIME [facility] Last Admin: 03/12/18 20:59 Dose: 200 mg - Discharge Plan Discharge Plan: Inpatient Hospitalization
[2018-03-13] MEDS: diPHENhydraMINE PO* 50 MG PO PRN (21:03)
[2018-03-13] MEDS: traZODone TAB* 100 MG PO SCH (21:04)
[2018-03-13] MEDS: Nicotine Patch Removal NOTE FOLLOW UP SCH (21:05)
[2018-03-14] MEDS: Nicotine PATCH 21 MG/24 HR* PATCH TRANSDERM SCH (10:10)
[2018-03-14] MEDS: Mometasone/Formoter 100/5 MDI INH SCH ×2 (10:10→21:21)
[2018-03-14] MEDS: Acetaminophen TAB* 325 MG PO PRN (11:23)
[2018-03-14] MEDS: Nicotine Inhaler* 10 MG AMP INH PRN (15:30)
--- NOTE | 2018-03-14 15:37 | PN ---
Subjective - Subjective Date of Service: 03/14/18 Service Type: 22171 Hosp care 15 min low complexity Subjective: Juve is seen in coverage for Lori Mena NP. Juve is found sitting on the couch in the milieu reading a newspaper. He doesn't have a lot to say and seems calm and perhaps depressed. He seems resigned to be here but is making the best of it. Objective - Appearance Appearance: Well Developed/Nourished Dysmorphic Features: No Hygiene: Normal Grooming: Well Kept - Behavior Psychomotor Activities: Normal Exhibits Abnormal Movement: No - Attitude and Relatedness Attitude and Relatedness: Cooperative Eye Contact: Fair - Speech Quality: Unpressured Latencies: Normal Quantity: Terse - Mood Patient's Decription of Mood: "Okay" - Affect Observed Affect: Constricted Affect Consistent with: Dysphoria - Thought Process Patient's Thought Process: Coherent Thought Content: No Homicidal Ideation, No Paranoid Ideation - Sensorium Experiencing Hallucinations: No, Sensorium is Clear Type of Hallucinations: Visual: No, Auditory: No, Command: No - Level of Consciousness Orientation: Yes Intact, Yes Orientated to Time, Yes Orientated to Place, Yes Orientated to Person - Impulse Control Impulse Control: Tenuous - Insight and Judgement Insight and Judgement: Fair - Group Participation Particating in Group Activities: Yes - Medication Management Medication Management Adherence: Yes Plan - Plan Treatment Plan: Name: RAFI HAQ Birthdate: 1970 [id number] Medications: Current Medications Acetaminophen (Tylenol Tab*) 650 mg PO Q4H PRN PRN Reason: for pain; or Temp >101 F Last Admin: 03/14/18 11:23 Dose: 650 mg Al Hydrox/Mg Hydrox/Simethicone (Maalox Plus*) 30 ml PO Q4H PRN PRN Reason: INDIGESTION Albuterol (Ventolin Hfa Inhaler*) 2 puff INH Q4H PRN PRN Reason: SHORTNESS OF BREATH Diphenhydramine HCl (Benadryl Po*) 50 mg PO BEDTIME PRN PRN Reason: INSOMNIA Last Admin: 03/13/18 21:03 Dose: 50 mg Hydroxyzine HCl (Atarax Tab*) 50 mg PO Q6H PRN PRN Reason: ANXIETY Mometasone Furoate/Formoterol Fumar (Dulera 100/5 Mdi*) 2 puff INH BID [facility] Last Admin: 03/14/18 10:10 Dose: Not Given Nicotine (Nicotine Inhaler*) 10 mg INH Q2H PRN PRN Reason: CRAVING Last Admin: 03/14/18 15:30 Dose: 10 mg Nicotine (Nicotine Patch 21 Mg/24 Hr*) 1 patch TRANSDERM DAILY [facility] Last Admin: 03/14/18 10:10 Dose: Not Given Pharmacy Profile Note (Nicotine Patch Removal Note*) 1 note FOLLOW UP 2100 [facility] Last Admin: 03/13/18 21:05 Dose: Not Given Trazodone HCl (Desyrel Tab*) 300 mg PO BEDTIME [facility] Last Admin: 03/13/18 21:04 Dose: 300 mg - Discharge Plan Discharge Plan: Outpatient Follow Up Outpatient Program: [facility] Additional Comments: Juve will follow up with [facility] and is looking for adequate housing.
[2018-03-14] MEDS: diPHENhydraMINE PO* 50 MG PO PRN (21:08)
[2018-03-14] MEDS: traZODone TAB* 100 MG PO SCH (21:08)
[2018-03-14] MEDS: Nicotine Patch Removal NOTE FOLLOW UP SCH (21:23)
[2018-03-15] MEDS: Mometasone/Formoter 100/5 MDI INH SCH ×2 (10:12→22:39)
[2018-03-15] MEDS: Nicotine PATCH 21 MG/24 HR* PATCH TRANSDERM SCH (10:12)
--- NOTE | 2018-03-15 11:12 | PN ---
Subjective - Subjective Date of Service: 03/13/18 Service Type: [id number] Group Psychotherapy Subjective: Juve was quiet in the group, but he was quite attentive. He attended throughout the entire group. Plan - Plan Treatment Plan: Name: RAFI HAQ JR Birthdate: 1970 [id number] Medications: Current Medications Acetaminophen (Tylenol Tab*) 650 mg PO Q4H PRN PRN Reason: for pain; or Temp >101 F Last Admin: 03/14/18 11:23 Dose: 650 mg Al Hydrox/Mg Hydrox/Simethicone (Maalox Plus*) 30 ml PO Q4H PRN PRN Reason: INDIGESTION Albuterol (Ventolin Hfa Inhaler*) 2 puff INH Q4H PRN PRN Reason: SHORTNESS OF BREATH Diphenhydramine HCl (Benadryl Po*) 50 mg PO BEDTIME PRN PRN Reason: INSOMNIA Last Admin: 03/14/18 21:08 Dose: 50 mg Hydroxyzine HCl (Atarax Tab*) 50 mg PO Q6H PRN PRN Reason: ANXIETY Mometasone Furoate/Formoterol Fumar (Dulera 100/5 Mdi*) 2 puff INH BID [facility] Last Admin: 03/15/18 10:12 Dose: Not Given Nicotine (Nicotine Inhaler*) 10 mg INH Q2H PRN PRN Reason: CRAVING Last Admin: 03/14/18 15:30 Dose: 10 mg Nicotine (Nicotine Patch 21 Mg/24 Hr*) 1 patch TRANSDERM DAILY [facility] Last Admin: 03/15/18 10:12 Dose: Not Given Pharmacy Profile Note (Nicotine Patch Removal Note*) 1 note FOLLOW UP 2100 [facility] Last Admin: 03/14/18 21:23 Dose: Not Given Trazodone HCl (Desyrel Tab*) 300 mg PO BEDTIME [facility] Last Admin: 03/14/18 21:08 Dose: 300 mg - Discharge Plan Additional Comments: Juve will follow up with [facility] and is looking for adequate housing.
--- NOTE | 2018-03-15 16:45 | PN ---
Subjective - Subjective Date of Service: 03/15/18 Service Type: 80242 Hosp care 15 min low complexity Subjective: Patient is intermittently attending groups. He reports poor sleep and daytime sedation. Discussed sleep hygiene, including staying awake during the day. He reports slightly improved mood but denies readiness for discharge. He is receptive to information about PROS and identifies this would be helpful for severe isolation. Objective - Appearance Appearance: Thin Framed Dysmorphic Features: Yes Hygiene: Normal Grooming: Fairly Well Kept - Behavior Psychomotor Activities: Normal Exhibits Abnormal Movement: No - Attitude and Relatedness Attitude and Relatedness: Cooperative Eye Contact: Good - Speech Quality: Unpressured Latencies: Normal Quantity: Appropriate - Mood Patient's Decription of Mood: "Sad" - Affect Observed Affect: Depressed Affect Consistent with: Dysphoria - Thought Process Patient's Thought Process: Impoverished Thought Content: No Passive Wish, No Suicidal Planning, No Homicidal Ideation, No Paranoid Ideation - Sensorium Experiencing Hallucinations: No, Sensorium is Clear Type of Hallucinations: Visual: No, Auditory: No, Command: No - Level of Consciousness Level of Consciousness: Alert Orientation: Yes Intact, Yes Orientated to Time, Yes Orientated to Place, Yes Orientated to Person - Impulse Control Impulse Control: Intact - Insight and Judgement Insight and Judgement: Poor - Group Participation Particating in Group Activities: Yes Group Participation Comments: partial - Medication Management Medication Management Adherence: Yes Assessment - Assessment Merits Inpatient Hospitalization: For Immediate Safety, For Stabilization, For Discharge Planning Inpatient DSM-V Dx: F33.2 Clinical Impression: 48yo wm, domiciled, with history of significant suicide attempt in 2017. His left approx 2 months ago and he is living alone in [facility]. He is tolerating trial of trazodone but continues to endorse severe depression. He merits hospitalization for immediate safety and stabilization. Plan - Plan Treatment Plan: Name: RAFI HAQ JR Birthdate: 1970 [id number] continue acute intensive psychiatric treatment. may decrease to q30min and allow staff pass. continue trazodone. discharge planning to include outpatient referrals. Continued Medication Management: Start Medication Medications: Current Medications Acetaminophen (Tylenol Tab*) 650 mg PO Q4H PRN PRN Reason: for pain; or Temp >101 F Last Admin: 03/14/18 11:23 Dose: 650 mg Al Hydrox/Mg Hydrox/Simethicone (Maalox Plus*) 30 ml PO Q4H PRN PRN Reason: INDIGESTION Albuterol (Ventolin Hfa Inhaler*) 2 puff INH Q4H PRN PRN Reason: SHORTNESS OF BREATH Diphenhydramine HCl (Benadryl Po*) 50 mg PO BEDTIME PRN PRN Reason: INSOMNIA Last Admin: 03/14/18 21:08 Dose: 50 mg Hydroxyzine HCl (Atarax Tab*) 50 mg PO Q6H PRN PRN Reason: ANXIETY Mometasone Furoate/Formoterol Fumar (Dulera 100/5 Mdi*) 2 puff INH BID [facility] Last Admin: 03/15/18 10:12 Dose: Not Given Nicotine (Nicotine Inhaler*) 10 mg INH Q2H PRN PRN Reason: CRAVING Last Admin: 03/14/18 15:30 Dose: 10 mg Nicotine (Nicotine Patch 21 Mg/24 Hr*) 1 patch TRANSDERM DAILY [facility] Last Admin: 03/15/18 10:12 Dose: Not Given Pharmacy Profile Note (Nicotine Patch Removal Note*) 1 note FOLLOW UP 2100 [facility] Last Admin: 03/14/18 21:23 Dose: Not Given Trazodone HCl (Desyrel Tab*) 300 mg PO BEDTIME [facility] Last Admin: 03/14/18 21:08 Dose: 300 mg - Discharge Plan Discharge Plan: Outpatient Follow Up Outpatient Program: [facility]ef[facility]duz[facility]
[2018-03-15] MEDS: traZODone TAB* 100 MG PO SCH (21:26)
[2018-03-15] MEDS: Nicotine Patch Removal NOTE FOLLOW UP SCH (22:40)
[2018-03-16] MEDS: Nicotine PATCH 21 MG/24 HR* PATCH TRANSDERM SCH (10:02)
[2018-03-16] MEDS: Mometasone/Formoter 100/5 MDI INH SCH ×2 (10:02→22:44)
--- NOTE | 2018-03-16 13:56 | PN ---
Subjective - Subjective Date of Service: 03/16/18 Subjective: Rafi was found in the milieu sitting by himself with a blanket wrapped around him. He was agreeable to an interview, reporting that his sleep is "not good." He feels that the Trazadone is not working as he states "I am tired." He is reporting that he goes to sleep about 9:00 PM, has difficulty falling asleep and then intermittent periods of wakefulness throughout the night. States that his depression is "still there". He plans on trying to attends groups "I try to be in groups eventhough I don't understand. but I am going to try to be present" Denies suicidal ideation. Objective - Appearance Appearance: Thin Framed Dysmorphic Features: Yes Hygiene: Dirty Grooming: Disheveled - Behavior Psychomotor Activities: Abnormal-Decreased Exhibits Abnormal Movement: No - Attitude and Relatedness Attitude and Relatedness: Withdrawn Eye Contact: Fair - Speech Quality: Unpressured Latencies: Short - Mood Patient's Decription of Mood: Tired - Affect Observed Affect: Depressed Affect Consistent with: Dysphoria - Thought Process Patient's Thought Process: Coherent Thought Content: No Passive Wish, No Suicidal Planning, No Homicidal Ideation, No Paranoid Ideation - Sensorium Experiencing Hallucinations: No, Sensorium is Clear Type of Hallucinations: Visual: No, Auditory: No, Command: No - Level of Consciousness Level of Consciousness: Alert Orientation: Yes Intact, Yes Orientated to Time, Yes Orientated to Place, Yes Orientated to Person - Impulse Control Impulse Control: Intact - Insight and Judgement Insight and Judgement: Fair - Group Participation Particating in Group Activities: Yes - Medication Management Medication Management Adherence: Yes Assessment - Assessment Merits Inpatient Hospitalization: For Stabilization Inpatient DSM-V Dx: F33.2 Clinical Impression: Rafi continues to report depression and poor/not restful sleep, states Trazadone is ineffective. Observed as withdrawn and guarded. Presentation is flat with depressed mood. Not reporting any suicidal ideation and is motivated to staying awake and attend groups Plan - Plan Treatment Plan: Name: RAFI HAQ JR Birthdate: 1970 [id number] continue acute intensive psychiatric treatment. may decrease to q30min and allow staff pass. continue trazodone. discharge planning to include outpatient referrals. Medications: Current Medications Acetaminophen (Tylenol Tab*) 650 mg PO Q4H PRN PRN Reason: for pain; or Temp >101 F Last Admin: 03/14/18 11:23 Dose: 650 mg Al Hydrox/Mg Hydrox/Simethicone (Maalox Plus*) 30 ml PO Q4H PRN PRN Reason: INDIGESTION Albuterol (Ventolin Hfa Inhaler*) 2 puff INH Q4H PRN PRN Reason: SHORTNESS OF BREATH Diphenhydramine HCl (Benadryl Po*) 50 mg PO BEDTIME PRN PRN Reason: INSOMNIA Last Admin: 03/14/18 21:08 Dose: 50 mg Hydroxyzine HCl (Atarax Tab*) 50 mg PO Q6H PRN PRN Reason: ANXIETY Mometasone Furoate/Formoterol Fumar (Dulera 100/5 Mdi*) 2 puff INH BID [facility] Last Admin: 03/16/18 10:02 Dose: Not Given Nicotine (Nicotine Inhaler*) 10 mg INH Q2H PRN PRN Reason: CRAVING Last Admin: 03/14/18 15:30 Dose: 10 mg Nicotine (Nicotine Patch 21 Mg/24 Hr*) 1 patch TRANSDERM DAILY [facility] Last Admin: 03/16/18 10:02 Dose: Not Given Pharmacy Profile Note (Nicotine Patch Removal Note*) 1 note FOLLOW UP 2100 [facility] Last Admin: 03/15/18 22:40 Dose: Not Given Trazodone HCl (Desyrel Tab*) 300 mg PO BEDTIME [facility] Last Admin: 03/15/18 21:26 Dose: 300 mg - Discharge Plan Discharge Plan: Outpatient Follow Up
[2018-03-16] MEDS: Nicotine Patch Removal NOTE FOLLOW UP SCH (21:43)
[2018-03-16] MEDS: traZODone TAB* 100 MG PO SCH (22:44)
[2018-03-17] MEDS: Mometasone/Formoter 100/5 MDI INH SCH ×2 (08:03→21:42)
[2018-03-17] MEDS: Nicotine PATCH 21 MG/24 HR* PATCH TRANSDERM SCH (08:03)
[2018-03-17] MEDS: traZODone TAB* 100 MG PO SCH (21:42)
[2018-03-17] MEDS: Nicotine Patch Removal NOTE FOLLOW UP SCH (21:44)
[2018-03-18] MEDS: Acetaminophen TAB* 325 MG PO PRN (09:06)
[2018-03-18] MEDS: Nicotine PATCH 21 MG/24 HR* PATCH TRANSDERM SCH (09:08)
[2018-03-18] MEDS: Mometasone/Formoter 100/5 MDI INH SCH ×2 (09:08→21:09)
--- NOTE | 2018-03-18 11:50 | PN ---
[facility]: Group Therapy Note - Service Type Service Type: [id number] Group Psychotherapy - Cognitive Behavioral Group Therapy ( CBT):Patient attended CBT programming this morning and presented with flat affect that did not vary with discussion. Although responsive to direct prompts to respond to questions, patient did not engage in spontaneous conversation.
[2018-03-18] MEDS: traZODone TAB* 100 MG PO SCH (21:09)
[2018-03-18] MEDS: Nicotine Patch Removal NOTE FOLLOW UP SCH (21:10)
[2018-03-19 09:54] VITALS: BP 100/75
[2018-03-19] MEDS: Nicotine PATCH 21 MG/24 HR* PATCH TRANSDERM SCH (11:24)
[2018-03-19] MEDS: Mometasone/Formoter 100/5 MDI INH SCH (11:24)
== END 2018-03-19 16:30 | disposition home or self-care (01) | DRG 751 ==
LOC: ED 09:05 → BSU 18:10
PROVIDERS: ADMIT Psychiatry & Neurology Psychiatry; ATTEND Psychiatry & Neurology Psychiatry
DX: F33.2 Major depressive disorder, recurrent severe without psychotic features (principal); R45.851 Suicidal ideations; F17.210 Nicotine dependence, cigarettes, uncomplicated; Z62.810 Personal history of physical and sexual abuse in childhood; J43.9 Emphysema, unspecified; M50.30 Other cervical disc degeneration, unspecified cervical region; M54.2 Cervicalgia; E78.5 Hyperlipidemia, unspecified; K21.9 Gastro-esophageal reflux disease without esophagitis; G47.33 Obstructive sleep apnea (adult) (pediatric); Z81.8 Family history of other mental and behavioral disorders
CPT/HCPCS: 36415; 80053; 80061; 80307; 80320; 80329; 81003; 83036; 84443; 85025; 90853; 99222; 99231; 99284; A9270-GY; G0480